=== PATIENT | male | born 1955 | race Caucasian/White ===

== ENCOUNTER → 2017-10-13 09:55 | Outpatient (CLI) | payer OTHER, MEDICAID, SELFPAY ==
--- NOTE | 2017-10-13 11:35 | DI.CT.S_ITS ---
PROCEDURE: CT ABDOMEN PELVIS WO CON INDICATIONS: identify extent of hernias abdominal wall TECHNIQUE: Noncontrast 5 mm thick sections acquired from the diaphragms to the symphysis. 5 mm coronal and sagittal reformats were then performed. For radiation dose reduction, the following was used: automated exposure control, adjustment of mA and/or kV according to patient size. COMPARISON: [facility], CT, CT CHEST WO CON, 05/20/2015, 8:04. FINDINGS: Image quality: Excellent. ABDOMEN: Lung bases: Lung bases are with very severe COPD, most pronounced over the upper lungs, where little surface area for aeration is present. Heart size is normal. There is a moderately large hiatal hernia behind the heart. Solid organs: Liver is normal in size. Gallbladder appears to be largely contracted but there is internal radiodensity suggestive of gallstones, without inflammation. Pancreas is normal in contours. Spleen is normal in size. No adrenal nodules. Kidneys are normal in size, without hydronephrosis or nephrolithiasis. Peritoneum and bowel: Unenhanced bowel loops demonstrate normal wall thickness and caliber. No free fluid or air. Nodes and vessels: No retroperitoneal or mesenteric adenopathy by size criteria. Aorta and inferior vena cava are normal in caliber. Miscellaneous: Body wall eventration lungs are asymmetric, greater on the left than the right, but there is only a single relatively small area of body wall defect allowing herniation of bowel into the subcutaneous fat. This is located at the axial level of the anterior superior iliac spine on the left, through a 3.7 cm body wall defect allows both omental/mesenteric fat and a short segment of small bowel containing oral contrast to extend into the subcutaneous fat (centered on series 2 image 54).. PELVIS: Genitourinary: Bladder wall thickness is normal. Miscellaneous: No inguinal hernias or adenopathy. Bones: No suspicious bony lesions. No vertebral body compression fractures. IMPRESSION: 1. Very severe COPD is noted, with marked hyperexpansion of the upper lungs bilaterally. 2. Body wall eventration's are present bilaterally but there is only a very small true body wall defect through which a short segment of small bowel containing oral contrast protrudes to a mild degree. This is located at the junction of the abdomen/pelvis at the right anterolateral body wall, through defect measuring 3.7 cm in maximal dimension. Dictated by: Thony Pizarro M.D. on 10/13/2017 at 13:33 Approved by: Thony Pizarro M.D. on 10/13/2017 at 13:38
== END ==
PROVIDERS: Family Provider Family Medicine; PCP Family Medicine; Visit Provider Specialist
DX: K43.9 Ventral hernia without obstruction or gangrene (principal); J44.9 Chronic obstructive pulmonary disease, unspecified
CPT/HCPCS: 74176

== ENCOUNTER 2017-11-02 08:03 | Emergency (ER) | payer OTHER, MEDICAID, SELFPAY ==
[2017-11-02 08:10] VITALS: BP 127/93; PULSE 100; RESP 15; TEMP 36.8; O2SAT 98; BMI 27.1
--- NOTE | 2017-11-02 08:24 | DI.RAD.S_ITS ---
PROCEDURE: XR CHEST 1V INDICATIONS: chest pain TECHNIQUE: One view of the chest was acquired. COMPARISON: [facility], CT, CT ABDOMEN PELVIS WO CON, 10/13/2017, 11:17. [facility], CT, CHEST W/O CONTRAST, 09/19/2014, 8:04. [facility], CT, CT CHEST WO CON, 05/20/2015, 8:04. FINDINGS: Surgical changes and devices: None. Lungs and pleura: Upper lungs are lucent consistent with severe bullous emphysema. There is mild hyperinflation. Bilateral lower lobe interstitial opacities. No focal consolidation. No pleural effusions or pneumothorax. Mediastinum: Mediastinal contours appear normal. Heart size is normal. There is a large hiatal hernia. Bones and chest wall: No suspicious bony lesions. Overlying soft tissues appear unremarkable. IMPRESSION: 1. Severe bullous emphysema. 2. Bilateral lower lobe interstitial opacities may be interstitial pneumonia superimposed on scars and atelectasis. 3. Large hiatal hernia. Dictated by: Pastor Andrade M.D. on 11/02/2017 at 8:27 Approved by: Pastor Andrade M.D. on 11/02/2017 at 8:31
[2017-11-02 08:40] LABS: Add Manual Diff / Slide Review NO; Basophils Percent Auto 0.4 % (0-2); Eosinophils Percent Auto 1.1 % (2-4); Hematocrit 40.2 % (41-53); Hemoglobin 13.1 g/dL (13.5-17.5); Lymphocytes Percent Auto 6.9 % (25-40); Mean Corpuscular HGB Conc 32.5 % (30-36); Mean Corpuscular Hemoglobin 26.3 PG (26-34); Mean Corpuscular Volume 80.9 fL (80-100); Monocytes Percent Auto 16.3 % (3-14); Neutrophils Absolute Auto 8800 /uL (3000-5900); Neutrophils Percent Auto 75.3 % (50-75); Platelet Count 290 X10^3/uL (150-400); Red Blood Cell Count 4.97 X10^6/uL (4.5-5.9); Red Cell Distribution Width 16.2 % (11.6-14.8); White Blood Cell Count 11.7 X10^3/uL (4.5-11.0)
[2017-11-02 08:42] LABS: INR 1.1 (0.9-1.3)
[2017-11-02 08:44] LABS: Alanine Aminotransferase 19 IU/L (21-72); Albumin 4.3 g/dL (3.5-5.0); Albumin Globulin Ratio 1.3 (1.0-2.8); Alkaline Phosphatase 50 U/L (38-126); Aspartate Aminotransferase 14 IU/L (17-59); BUN Creatinine Ratio 16.3 (6-22); Bilirubin Total 0.7 mg/dL (0.2-1.3); Blood Urea Nitrogen 13 mg/dL (9-20); Calcium 9.7 mg/dL (8.4-10.2); Carbon Dioxide 26 mmol/L (22-32); Chloride 104 mmol/L (98-107); Creatine Kinase 71 U/L (55-170); Estimated Glomerular Filt Rate > 60.0 mL/min (>60); Globulin 3.2 g/dL (1.7-4.1); Glucose 98 mg/dL (80-110); HEMOLYSIS < 15 (0-50); Lipase 27 U/L (23-300); PTT Partial Thromboplastin Tim 29 SECONDS (26.4-36.2); Sodium 140 mmol/L (137-145); Total Protein 7.5 g/dL (6.3-8.2)
--- NOTE | 2017-11-02 08:52 | ED_ITS ---
HPI - Chest Pain General Chief Complaint: Chest Pain Stated Complaint: chest pain Time Seen by Provider: 11/02/17 08:07 Source: patient Mode of arrival: ambulatory Limitations: no limitations History of Present Illness HPI narrative: Patient is a 62-year-old male with a known history of COPD here for evaluation of shortness of breath. Patient states that on Monday during the day he started to have shortness of breath and back pain. He states that it is similar to prior COPD issues that he has had but he was also concerned about his known cholelithiasis him with a not the symptoms he were having is related to that. He also states that he looked on Google regarding his symptoms and was also concerned about his heart. He states that his normal COPD treatments which include inhalers and a natural steroid has not helped him symptoms. He states that normally these treatments do help his symptoms. He states that his symptoms have been consistent since Monday. Denies chest pain. States that he does have pain in his back which she occasionally gets with COPD but states that he just cannot get comfortable no lower extremity swelling. Related Data Home Medications Medication Instructions Recorded Confirmed albuterol sulfate HFA 90 1 puff INHALATION DIRECTED 09/29/17 11/02/17 mcg/actuation aerosol inhaler fluticasone 100 mcg-vilanterol 25 1 inhalation INHALATION Q24H 09/29/17 11/02/17 mcg/dose powder for inhalation fluticasone 50 mcg/actuation nasal 1 spray NASAL .PRN gram 09/29/17 11/02/17 spray,suspension loratadine 10 mg tablet 10 mg PO DAILY 09/29/17 11/02/17 tiotropium bromide 1.25 2 puff INHALATION Q12H gram 09/29/17 11/02/17 mcg/actuation mist for inhalation Serrapeptase 1 dose PO PRN PRN 11/02/17 11/02/17 polyethylene glycol 3350 [Miralax] 1 dose PO PRN PRN 11/02/17 11/02/17 Allergies Allergy/AdvReac Type Severity Reaction Status Date / Time No Known Drug Allergies Allergy Unverified 09/29/17 13:35 Review of Systems Constitutional Denies fatigue and Denies fever(s) ENT Ears, Nose, Mouth, and Throat: Denies vertigo and Denies dizziness Cardiovascular Denies chest pain, Denies diaphoresis, Denies edema, Denies irregular heart rhythm, Denies leg edema, Denies palpitations and Reports dyspnea Respiratory Denies change in phlegm color, Denies chest congestion, Denies cough, Reports dyspnea and Denies wheezing Gastrointestinal Gastrointestinal: Denies diarrhea, Denies nausea and Denies vomiting Comments: has a known abdominal hernia from prior colon resection and colostomy takedown Genitourinary Denies dysuria Musculoskeletal Denies myalgias and Denies arthralgias Integumentary/Breasts Denies lesions and Denies rash Neurologic Denies confusion, Denies vertigo and Denies dizziness Psychiatric Denies confusion Endocrine Denies fatigue and Denies palpitations Hematologic/Lymphatic Denies easy bleeding and Denies easy bruising Allergic/Immunologic Denies wheezing [facility] Medical History COPD (chronic obstructive pulmonary disease) (Chronic) Ventral incisional hernia without gangrene (Chronic) Hernia (Resolved) Surgical History H/O resection of large bowel (Resolved) History of colostomy reversal (Resolved) History of colostomy reversal (Resolved) History of resection of large bowel (Resolved) Social History Smoking Status: Former smoker alcohol intake: never Exam Initial Vital Signs Initial Vital Signs: Vital Signs Temperature 98.3 F 11/02/17 08:10 Pulse Rate 100 H 11/02/17 08:10 Respiratory Rate 15 11/02/17 08:10 Blood Pressure 127/93 H 11/02/17 08:10 Pulse Oximetry 98 11/02/17 08:10 Const General: cooperative, healthy appearing, comfortable, well developed, well groomed and No acute distress Orientation: alert, awake and oriented x3 HENMT Head: normal to inspection and normocephalic Resp Effort & Inspection: normal respiratory effort Auscultation: clear to auscultation bilaterally Cardio Rate: regular rate Rhythm: regular rhythm Pulses: radial pulses present Skin Lesions: no lesions Rashes: no rashes Neuro General: alert, awake and oriented x3 Cognition: normal cognition Speech: speech normal Gait: normal gait Motor: muscle tone normal throughout Sensory Exam: no sensory deficits noted Extrem General: normal to inspection, capillary refill normal and no pedal edema Psych Appearance: well kempt Course Orders Ordered: ED Orders 11/02/17 08:20 B Type Natriuretic Peptide Stat Complete Blood Count AUTO DIFF Stat Comprehensive Metabolic Panel Stat Lipase Stat Partial Thromboplastin Time Stat Prothrombin Time INR Stat Troponin & CK Cardiac Panel Stat 11/02/17 08:24 XR chest 1V Stat EKG-12 Lead Stat 11/02/17 10:06 CT angio chest PE protocol Stat 11/02/17 11:32 Troponin I Stat Discontinued Medications Sodium Chloride (Normal Saline 0.9%) 1,000 mls @ 500 mls/hr IV BOLUS ONE Stop: 11/02/17 11:36 Last Infusion: 11/02/17 11:29 Dose: 0 mls/hr Admin: 11/02/17 09:42 Dose: 500 mls/hr Vital Signs - 8 hr 11/02/17 08:10 11/02/17 10:57 11/02/17 11:06 Temperature 98.3 F Pulse Rate 100 H 97 H 82 Respiratory Rate 15 14 19 Blood Pressure 127/93 H Blood Pressure [Right Arm] 141/92 H 127/89 H Pulse Oximetry 98 99 99 11/02/17 11:32 11/02/17 12:01 Temperature Pulse Rate 85 88 Respiratory Rate 18 22 Blood Pressure Blood Pressure [Right Arm] 135/86 H 126/76 H Pulse Oximetry 98 97 MDM - Chest Pain Lab Data Attestation: I reviewed the patient's lab results. Result diagrams: 11/02/17 08:20 11/02/17 08:20 Lab Results 11/02/17 11/02/17 11/02/17 Range/Units 08:20 08:20 08:20 WBC 11.7 H (4.5-11.0) X10^3/uL RBC 4.97 (4.5-5.9) X10^6/uL Hgb 13.1 L (13.5-17.5) g/dL Hct 40.2 L (41-53) % MCV 80.9 (80-100) fL MCH 26.3 (26-34) PG MCHC 32.5 (30-36) % RDW 16.2 H (11.6-14.8) % Plt Count 290 (150-400) X10^3/uL Neut % (Auto) 75.3 H (50-75) % Lymph % (Auto) 6.9 L (25-40) % Dickenson % (Auto) 16.3 H (3-14) % Eos % (Auto) 1.1 L (2-4) % Baso % (Auto) 0.4 (0-2) % Neut # (Auto) 8800 H (2076-7079) /uL PT 12.0 (10.1-12.7) SECONDS INR 1.1 (0.9-1.3) APTT 29 (26.4-36.2) SECONDS Sodium 140 (137-145) mmol/L Potassium 4.0 (3.4-5.1) mmol/L Chloride 104 (98-107) mmol/L Carbon Dioxide 26 (22-32) mmol/L BUN 13 (9-20) mg/dL Creatinine 0.80 (0.66-1.25) mg/dL Estimated GFR > 60.0 (>60) mL/min BUN/Creatinine Ratio 16.3 (6-22) Glucose 98 (80-110) mg/dL Calcium 9.7 (8.4-10.2) mg/dL Total Bilirubin 0.7 (0.2-1.3) mg/dL AST 14 L (17-59) IU/L ALT 19 L (21-72) IU/L Alkaline Phosphatase 50 (38-126) U/L Total Creatine Kinase 71 (55-170) U/L Troponin I < 0.012 (0.01-0.034) ng/mL B-Natriuretic Peptide (<100) Total Protein 7.5 (6.3-8.2) g/dL Albumin 4.3 (3.5-5.0) g/dL Globulin 3.2 (1.7-4.1) g/dL Albumin/Globulin Ratio 1.3 (1.0-2.8) Lipase 27 (23-300) U/L 11/02/17 11/02/17 Range/Units 08:20 11:32 WBC (4.5-11.0) X10^3/uL RBC (4.5-5.9) X10^6/uL Hgb (13.5-17.5) g/dL Hct (41-53) % MCV (80-100) fL MCH (26-34) PG MCHC (30-36) % RDW (11.6-14.8) % Plt Count (150-400) X10^3/uL Neut % (Auto) (50-75) % Lymph % (Auto) (25-40) % Dickenson % (Auto) (3-14) % Eos % (Auto) (2-4) % Baso % (Auto) (0-2) % Neut # (Auto) (4659-5460) /uL PT (10.1-12.7) SECONDS INR (0.9-1.3) APTT (26.4-36.2) SECONDS Sodium (137-145) mmol/L Potassium (3.4-5.1) mmol/L Chloride (98-107) mmol/L Carbon Dioxide (22-32) mmol/L BUN (9-20) mg/dL Creatinine (0.66-1.25) mg/dL Estimated GFR (>60) mL/min BUN/Creatinine Ratio (6-22) Glucose (80-110) mg/dL Calcium (8.4-10.2) mg/dL Total Bilirubin (0.2-1.3) mg/dL AST (17-59) IU/L ALT (21-72) IU/L Alkaline Phosphatase (38-126) U/L Total Creatine Kinase (55-170) U/L Troponin I < 0.012 (0.01-0.034) ng/mL B-Natriuretic Peptide 77.4 (<100) Total Protein (6.3-8.2) g/dL Albumin (3.5-5.0) g/dL Globulin (1.7-4.1) g/dL Albumin/Globulin Ratio (1.0-2.8) Lipase (23-300) U/L Imaging Data Chest x-ray: Radiologist's impression: severe bullous emphysema bilateral lower lobe interstitial opacities may be interstitial pneumonia superimposed on scars or and atelectasis large hiatal hernia CT scan - chest: Radiologist's impression: PROCEDURE: CT ANGIO CHEST PE PROTOCOL INDICATIONS: Chest pain, shortness of breath TECHNIQUE: After the administration of intravenous contrast, 2 mm thick sections acquired from the pulmonary apices to the posterior costophrenic angles. 3-dimensional maximum intensity projection (MIP) coronal and sagittal reformats were then acquired through the thorax. For radiation dose reduction, the following was used: automated exposure control, adjustment of mA and/or kV according to patient size. COMPARISON: [facility], CT, CHEST W/O CONTRAST, 09/19/2014, 8:04. [facility], CT, CT CHEST WO CON, 05/20/2015, 8:04. [facility], CT, CT ABDOMEN PELVIS WO CON, 10/13/2017, 11:17. FINDINGS: Image quality: Excellent. Pulmonary arteries: Pulmonary arteries are normal in size, and demonstrate no intraluminal filling defects to suggest central pulmonary embolism. Lungs and pleura: Severe bullous emphysema is again noted. 4 mm left upper lobe and 5 mm left lower lobe nodules are unchanged from 2015. Lungs are clear. No pleural effusions or pneumothorax. Central and peripheral airways are patent. Mediastinum: Heart size is normal, without pericardial effusion. Right superior mediastinal soft tissue mass is unchanged measuring 2.0 x 3.9 cm. No hilar adenopathy. Thoracic aorta is normal in caliber and enhancement. Large hiatal hernia again noted. Bones and chest wall: No suspicious bony lesions. Ribs and thoracic spine appear intact throughout. Thyroid gland appears normal. No axillary or supraclavicular adenopathy. Abdomen: Visualized upper abdominal solid organs appear normal in the early arterial phase of enhancement. There appears to be a large gallstone. A 1.6 cm hepatic cyst is present near the gallbladder fossa. IMPRESSION: 1. No evidence of pulmonary embolic disease. 2. Severe bullous emphysema. Stable left upper and lower lobe pulmonary nodules. 3. Stable superior mediastinal mass, differential including thymoma, teratoma, goiter and adenopathy. 4. Large hiatal hernia. 5. Central hepatic cyst. 6. Probable cholelithiasis. Dictated by: Martín Hernandez M.D. on 11/02/2017 at 10:17 ECG Data Attestation: I personally reviewed and interpreted this ECG as follows: Prior ECG tracings: not available for review Interpretation: sinus rhythm ventricular rate at 80 sinus arrhythmia normal axis Normal QRS Normal QTC no ST T wave changes MDM Narrative Medical decision making narrative: patient's CT of his chest was negative for blood clots. EKG is nonischemic. Has had symptoms consistently for greater than 48 hr and also has had 2- troponins. I have low suspicion that his symptoms today are cardiac related. He did have a resolution of his back pain while he was here in the emergency department. He now states that his abdominal pain is consistent with his hiatal hernia. Will hold on further workup for now. He was given return precautions. He does have his COPD medications at home is going to stop by the pharmacy to get those filled. his family was at bedside. He expressed understanding and agreement with plan. Discharge Plan Departure Patient Disposition: Home, Self-Care Clinical Impression: Back pain, COPD (chronic obstructive pulmonary disease) Instructions: Chronic Obstructive Pulmonary Disease Activity Restrictions/Additional Instructions: continue all of your medications as directed. Call your primary care doctor for a follow-up. Return to the emergency department for any new or worsening symptoms Prescriptions: No Action tiotropium bromide [Spiriva Respimat] 1.25 mcg/actuation mist 2 puff INHALATION Q12H RF: 0 fluticasone 50 mcg/actuation spray,suspension 1 spray NASAL .PRN RF: 0 fluticasone-vilanterol [Breo Ellipta] 100-25 mcg/dose blister with device 1 inhalation INHALATION Q24H RF: 0 loratadine 10 mg tablet 10 mg PO DAILY RF: 0 albuterol sulfate [ProAir HFA] 90 mcg/actuation Hfa Aerosol Inhaler 1 puff INHALATION DIRECTED RF: 0 polyethylene glycol 3350 [Miralax] 17 gram Powder In Packet 1 dose PO PRN PRN (Reason: Constipation) RF: 0 Serrapeptase 1 dose PO PRN PRN (Reason: unknown) RF: 0
[2017-11-02 09:05] LABS: Troponin I < 0.012 ng/mL (0.01-0.034)
[2017-11-02 09:35] LABS: B Type Natriuretic Peptide 77.4 (<100)
[2017-11-02] MEDS: SODIUM CHLORIDE 0.9% 1,000 ML 500 ML IV (09:42)
--- NOTE | 2017-11-02 10:06 | DI.CT.S_ITS ---
PROCEDURE: CT ANGIO CHEST PE PROTOCOL INDICATIONS: Chest pain, shortness of breath TECHNIQUE: After the administration of intravenous contrast, 2 mm thick sections acquired from the pulmonary apices to the posterior costophrenic angles. 3-dimensional maximum intensity projection (MIP) coronal and sagittal reformats were then acquired through the thorax. For radiation dose reduction, the following was used: automated exposure control, adjustment of mA and/or kV according to patient size. COMPARISON: [facility], CT, CHEST W/O CONTRAST, 09/19/2014, 8:04. [facility], CT, CT CHEST WO CON, 05/20/2015, 8:04. [facility], CT, CT ABDOMEN PELVIS WO CON, 10/13/2017, 11:17. FINDINGS: Image quality: Excellent. Pulmonary arteries: Pulmonary arteries are normal in size, and demonstrate no intraluminal filling defects to suggest central pulmonary embolism. Lungs and pleura: Severe bullous emphysema is again noted. 4 mm left upper lobe and 5 mm left lower lobe nodules are unchanged from 2015. Lungs are clear. No pleural effusions or pneumothorax. Central and peripheral airways are patent. Mediastinum: Heart size is normal, without pericardial effusion. Right superior mediastinal soft tissue mass is unchanged measuring 2.0 x 3.9 cm. No hilar adenopathy. Thoracic aorta is normal in caliber and enhancement. Large hiatal hernia again noted. Bones and chest wall: No suspicious bony lesions. Ribs and thoracic spine appear intact throughout. Thyroid gland appears normal. No axillary or supraclavicular adenopathy. Abdomen: Visualized upper abdominal solid organs appear normal in the early arterial phase of enhancement. There appears to be a large gallstone. A 1.6 cm hepatic cyst is present near the gallbladder fossa. IMPRESSION: 1. No evidence of pulmonary embolic disease. 2. Severe bullous emphysema. Stable left upper and lower lobe pulmonary nodules. 3. Stable superior mediastinal mass, differential including thymoma, teratoma, goiter and adenopathy. 4. Large hiatal hernia. 5. Central hepatic cyst. 6. Probable cholelithiasis. Dictated by: Martín Hernandez M.D. on 11/02/2017 at 10:17 Approved by: Martín Hernandez M.D. on 11/02/2017 at 11:01
[2017-11-02 10:57] VITALS: BP 141/92; PULSE 97; RESP 14; O2SAT 99
[2017-11-02 11:06] VITALS: BP 127/89; PULSE 82; RESP 19; O2SAT 99
[2017-11-02 11:32] VITALS: BP 135/86; PULSE 85; RESP 18; O2SAT 98
[2017-11-02 12:01] VITALS: BP 126/76; PULSE 88; RESP 22; O2SAT 97
[2017-11-02 12:05] LABS: Troponin I < 0.012 ng/mL (0.01-0.034)
[2017-11-02 12:22] VITALS: BP 126/76; PULSE 90; RESP 20; O2SAT 97
== END 2017-11-02 12:23 | disposition home or self-care (01) ==
PROVIDERS: Emergency Provider Emergency Medicine; Family Provider Family Medicine; PCP Family Medicine
DX: M54.9 Dorsalgia, unspecified (principal); J44.9 Chronic obstructive pulmonary disease, unspecified
CPT/HCPCS: 36415; 36591; 71045; 71275; 80053; 82550; 82553; 83690; 83880; 84484; 85025; 85610; 85730; 93005; 93041; 96360; 96361; 99284; 99285; Q9967

== ENCOUNTER 2019-05-13 08:45 | Inpatient (IN) | payer OTHER, MEDICAID, SELFPAY ==
[2019-05-13] VITALS (12 sets, daily range): BP systolic 109–141; BP diastolic 63–92; PULSE 82–116; RESP 16–31; TEMP 36.7–37.1; O2SAT 91–97; BMI 28.3
--- NOTE | 2019-05-13 09:18 | DI.RAD.S_ITS ---
PROCEDURE: XR CHEST 1V INDICATIONS: short of breath TECHNIQUE: One view of the chest was acquired. COMPARISON: , CT, CT ANGIO CHEST PE PROTOCOL, 11/02/2017, 9:55. [facility], CT, CT CHEST WO CON, 05/20/2015, 8:04. , CR, XR CHEST 1V, 11/02/2017, 8:58. FINDINGS: Surgical changes and devices: None. Lungs and pleura: Severe bullous emphysema is again seen. Consolidation can be seen at the right lung base, which is significantly changed compared to the prior examination. Mediastinum: Mediastinal contours appear normal. Heart size is normal. Bones and chest wall: No suspicious bony lesions. Age-appropriate bony degenerative changes are seen. Overlying soft tissues appear unremarkable. IMPRESSION: Stable severe bullous emphysema. If there is strong concern for a developing superimposed bacterial process, please consider a short term followup chest series, as clinically directed. Dictated by: Delvis Alba M.D. on 05/13/2019 at 9:40 Approved by: Delvis Alba M.D. on 05/13/2019 at 9:45
--- NOTE | 2019-05-13 09:36 | ED_ITS ---
HPI - SOB/Dyspnea General Chief Complaint: Shortness of Breath/Dyspnea Stated Complaint: DIFFICULTY BREATHING WITH EXERTION,COPD Time Seen by Provider: 05/13/19 09:17 Source: patient Mode of arrival: Ambulatory History of Present Illness HPI Narrative: Patient is a 63-year-old male history of COPD presenting with increasing shortness of breath. He says that he has only had 3 days for the entire year of 2019 where he has felt well at which time he was on antibiotics and prednisone. He says yesterday he used 10-20 nebulizer treatments without any improvement. He says he now has a headache he he denies any fever sweats or chills but does have productive sputum. He says he has increased shortness of breath with exertion he does he can't more than 10-15 feet. Although right now he is given the history without any difficulty in breathing and speaks in full sentences laughing and joking. Complaint: shortness of breath Onset (ago): week(s) Context: recent illness Severity: moderate Relieving factors: nothing Exacerbating factors: exertion Known history of: COPD Related Data Home Medications Medication Instructions Recorded Confirmed Serrapeptase 1 dose PO PRN PRN 11/02/17 05/13/19 polyethylene glycol 3350 [Miralax] 1 dose PO PRN PRN 11/02/17 05/13/19 sennosides [senna] 8.6 mg PO BID PRN 05/13/19 05/13/19 tiotropium bromide [Spiriva 2 puff INHALATION Q12H 05/13/19 05/13/19 Respimat] Previous Rx's Medication Instructions Recorded albuterol sulfate 90 mcg/actuation 1 puff INHALATION Q4H PRN #18 gram 04/30/19 aerosol inhaler Allergies Allergy/AdvReac Type Severity Reaction Status Date / Time No Known Drug Allergies Allergy Unverified 01/30/19 12:59 Review of Systems Review of Systems Narrative: GENERAL: Denies chills, fatigue, malaise, fever, sweats, travel HEENT: Denies sinus pain, ear pain, sore throat, difficulty swallowing, neck pain RESPIRATORY: See HPI CARDIOVASCULAR: Denies chest pain, palpitations, orthopnea, edema GASTROINTESTINAL: Denies nausea, vomiting, abdominal pain, diarrhea, co nstipation, melena. : Denies dysuria, frequency, incontinence, hematuria, urinary retention, flank pain. MUSCULOSKELETAL: Denies weakness, joint pain, or bony pain SKIN: No rash, no erythema, no pruritus NEUROLOGIC: Denies weakness, dizziness, headache, numbness, change in speech, confusion PSYCHIATRIC: No concerning psychosocial issues. 12 point review of systems is negative except for those stated above and HPI Patient History Medical History COPD (chronic obstructive pulmonary disease) (Chronic) Hearing loss (Chronic) Hernia (Resolved) Recurrent sinusitis (Chronic) Restless leg syndrome (Chronic) Tinnitus (Chronic) Ventral incisional hernia without gangrene (Chronic) Surgical History Anesthesia (Resolved) H/O resection of large bowel (Resolved) History of colostomy reversal (Resolved) History of colostomy reversal (Resolved) History of resection of large bowel (Resolved) Family History Father History of heart disease Mother Cancer Sister Cancer Social History household members: none Smoking Status: Former smoker alcohol intake: never Smoking Status: Former smoker Substance Use Type: former substance user Exam Initial Vital Signs Initial Vital Signs: Vital Signs Temperature 98.2 F 05/13/19 08:50 Pulse Rate 98 H 05/13/19 08:50 Respiratory Rate 22 05/13/19 08:50 Blood Pressure 136/92 H 05/13/19 08:50 Pulse Oximetry 95 05/13/19 08:50 GENERAL: Alert middle-aged male no acute distress HEENT: Head atraumatic,EOMI, pupils reactive CARDIOVASCULAR: Regular rate and rhythm without murmurs, rubs or gallops. RESPIRATORY: Bilateral wheezing no respiratory distress no intercostal retra ctions speaks in full sentences ABDOMEN: Soft, nontender. Normoactive bowel sounds all 4 quadrants. No guarding or rebound. EXTREMITIES: Normal range of motion, no clubbing or edema. Neurovascularly intact NEUROLOGICAL: Alert and oriented x4.Normal gait and speech. Cranial nerves II through XII grossly intact. SKIN: Warm, dry, no laceration, no petechiae, no rashes or lesions. Course Orders Ordered: ED Orders 05/13/19 09:17 Consult to Respiratory Therapy Evaluate & Treat 05/13/19 09:18 XR chest 1V Stat 05/13/19 09:36 Complete Blood Count AUTO DIFF Stat Comprehensive Metabolic Panel Stat D Dimer Stat Magnesium Stat Partial Thromboplastin Time Stat Prothrombin Time INR Stat Troponin & CK Cardiac Panel Stat 05/13/19 09:39 NT-proBNP (BNP-Adult 18+) Stat 05/13/19 11:21 CT angio chest PE protocol Stat 05/13/19 12:10 Respiratory Panel (Film Array) Stat Sodium Chloride (Normal Saline 0.9% Flush) 10 ml IV PRN PRN PRN Reason: Flush Sodium Chloride (Normal Saline 0.9% Flush) 10 ml IV BID LETTY Discontinued Medications Albuterol/Ipratropium (Duoneb) 3 ml INH NOW ONE Stop: 05/13/19 11:42 Last Admin: 05/13/19 11:41 Dose: 3 ml Documented by: EFREN Ceftriaxone Sodium/Dextrose (Rocephin) 1 gm in 50 mls @ 100 mls/hr IV NOW ONE Stop: 05/13/19 12:56 Azithromycin 500 mg/ Dextrose 250 mls @ 250 mls/hr IV NOW ONE Stop: 05/13/19 12:28 Last Infusion: 05/13/19 13:15 Dose: 0 mls/hr Documented by: Admin: 05/13/19 12:43 Dose: 250 mls/hr Documented by: ANNA Methylprednisolone (Solu-Medrol 125 Mg Vial) 125 mg IV NOW ONE Stop: 05/13/19 09:18 Last Admin: 05/13/19 09:42 Dose: 125 mg Documented by: GREGORIA Vital Signs Vital signs: Vital Signs - 8 hr 05/13/19 08:50 05/13/19 09:30 05/13/19 10:30 Temperature 98.2 F Pulse Rate 98 H 84 89 Respiratory Rate 22 31 H 28 H Blood Pressure 136/92 H Blood Pressure [Left Arm] 129/88 133/85 Pulse Oximetry 95 96 97 05/13/19 11:35 05/13/19 12:00 Temperature Pulse Rate 100 H 94 H Respiratory Rate 28 H 21 Blood Pressure Blood Pressure [Left Arm] 135/87 141/85 H Pulse Oximetry 93 96 MDM - SOB/Dyspnea Lab Data Attestation: I reviewed the patient's lab results. Result diagrams: 05/13/19 09:36 05/13/19 09:36 Labs: Lab Results 05/13/19 05/13/19 05/13/19 Range/Units 09:36 09:36 09:36 WBC 6.3 (4.5-11.0) X10^3/uL RBC 4.93 (4.5-5.9) X10^6/uL Hgb 15.1 (13.5-17.5) g/dL Hct 44.9 (41-53) % MCV 91.0 (80-100) fL MCH 30.6 (26-34) PG MCHC 33.6 (30-36) % RDW 13.1 (11.6-14.8) % Plt Count 231 (150-400) X10^3/uL Neut % (Auto) 71.1 (50-75) % Lymph % (Auto) 8.7 L (25-40) % [place] % (Auto) 11.6 (3-14) % Eos % (Auto) 8.1 H (2-4) % Baso % (Auto) 0.5 (0-2) % Neut # (Auto) 4400 (0764-1256) /uL Lymph # (Auto) 500 L (1960-4683) /uL [place] # (Auto) 700 (0-900) /uL Eos # (Auto) 500 H (0-450) /uL Baso # (Auto) 0 (0-100) /uL PT 12.1 (10.1-12.7) SECONDS INR 1.1 (0.9-1.3) APTT 33 D (26.4-36.2) SECONDS D-Dimer (<230) ng/mL Sodium 141 (137-145) mmol/L Potassium 4.3 (3.4-5.1) mmol/L Chloride 104 (98-107) mmol/L Carbon Dioxide 32 (22-32) mmol/L BUN 14 (9-20) mg/dL Creatinine 0.70 (0.66-1.25) mg/dL Estimated GFR > 60.0 (>60) mL/min BUN/Creatinine Ratio 20.0 (6-22) Glucose 106 (80-110) mg/dL Calcium 9.6 (8.4-10.2) mg/dL Magnesium 2.2 (1.6-2.3) mg/dL Total Bilirubin 0.5 (0.2-1.3) mg/dL AST 19 (17-59) IU/L ALT 15 (<50) IU/L Alkaline Phosphatase 58 (38-126) U/L Total Creatine Kinase 90 (55-170) U/L CK-MB (CK-2) TNP CK-MB (CK-2) Rel Index TNP Troponin I < 0.012 (0.01-0.034) ng/mL NT-Pro-B Natriuret Pep (<125) pg/mL Total Protein 7.7 (6.3-8.2) g/dL Albumin 4.3 (3.5-5.0) g/dL Globulin 3.4 (1.7-4.1) g/dL Albumin/Globulin Ratio 1.3 (1.0-2.8) 05/13/19 05/13/19 Range/Units 09:36 09:39 WBC (4.5-11.0) X10^3/uL RBC (4.5-5.9) X10^6/uL Hgb (13.5-17.5) g/dL Hct (41-53) % MCV (80-100) fL MCH (26-34) PG MCHC (30-36) % RDW (11.6-14.8) % Plt Count (150-400) X10^3/uL Neut % (Auto) (50-75) % Lymph % (Auto) (25-40) % [place] % (Auto) (3-14) % Eos % (Auto) (2-4) % Baso % (Auto) (0-2) % Neut # (Auto) (7758-2808) /uL Lymph # (Auto) (1511-1200) /uL [place] # (Auto) (0-900) /uL Eos # (Auto) (0-450) /uL Baso # (Auto) (0-100) /uL PT (10.1-12.7) SECONDS INR (0.9-1.3) APTT (26.4-36.2) SECONDS D-Dimer 811 H (<230) ng/mL Sodium (137-145) mmol/L Potassium (3.4-5.1) mmol/L Chloride (98-107) mmol/L Carbon Dioxide (22-32) mmol/L BUN (9-20) mg/dL Creatinine (0.66-1.25) mg/dL Estimated GFR (>60) mL/min BUN/Creatinine Ratio (6-22) Glucose (80-110) mg/dL Calcium (8.4-10.2) mg/dL Magnesium (1.6-2.3) mg/dL Total Bilirubin (0.2-1.3) mg/dL AST (17-59) IU/L ALT (<50) IU/L Alkaline Phosphatase (38-126) U/L Total Creatine Kinase (55-170) U/L CK-MB (CK-2) CK-MB (CK-2) Rel Index Troponin I (0.01-0.034) ng/mL NT-Pro-B Natriuret Pep 50 (<125) pg/mL Total Protein (6.3-8.2) g/dL Albumin (3.5-5.0) g/dL Globulin (1.7-4.1) g/dL Albumin/Globulin Ratio (1.0-2.8) Imaging Data Chest x-ray: Radiologist's Impression: PROCEDURE: XR CHEST 1V INDICATIONS: short of breath TECHNIQUE: One view of the chest was acquired. COMPARISON: [facility], CT, CT ANGIO CHEST PE PROTOCOL, 11/02/2017, 9:55. [facility], CT, CT CHEST WO CON, 05/20/2015, 8:04. [facility], CR, XR CHEST 1V, 11/02/2017, 8:58. FINDINGS: Surgical changes and devices: None. Lungs and pleura: Severe bullous emphysema is again seen. Consolidation can be seen at the right lung base, which is significantly changed compared to the prior examination. Mediastinum: Mediastinal contours appear normal. Heart size is normal. Bones and chest wall: No suspicious bony lesions. Age-appropriate bony degenerative changes are seen. Overlying soft tissues appear unremarkable. IMPRESSION: Stable severe bullous emphysema. If there is strong concern for a developing superimposed bacterial process, please consider a short term followup chest series, as clinically directed. Dictated by: Delvis Alba M.D. on 05/13/2019 at 9:40 CT scan - chest: Radiologist's Impression: PROCEDURE: CT ANGIO CHEST PE PROTOCOL INDICATIONS: sob with hypoxia TECHNIQUE: After the administration of intravenous contrast, 2 mm thick sections acquired from the pulmonary apices to the posterior costophrenic angles. 3-dimensional maximum intensity projection (MIP) coronal and sagittal reformats were then acquired through the thorax. For radiation dose reduction, the following was used: automated exposure control, adjustment of mA and/or kV according to patient size. COMPARISON: [facility], CT, CHEST W/O CONTRAST, 09/19/2014, 8:04. [facility], CT, CT ANGIO CHEST PE PROTOCOL, 11/02/2017, 9:55. FINDINGS: Image quality: Excellent. Pulmonary arteries: Pulmonary arteries are normal in size, and demonstrate no intraluminal filling defects to suggest central pulmonary embolism. Lungs and pleura: Prominent emphysematous changes are present with large bulla within the upper lobes bilaterally. There has been interval development of consolidative opacities within the right lower lobe. Mediastinum: Heart size is normal, without pericardial effusion. 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 Although there has been no significant change compared to 11/02/17, they have increased in size since initial visualization in 2014. It is in near direct approximation to the inferior right thyroid lobe. Thoracic aorta is normal in caliber and enhancement. Esophagus is normal in caliber, with prominent hiatal hernia. Bones and chest wall: No suspicious bony lesions. Ribs and thoracic spine appear intact throughout. Thyroid gland demonstrates low-attenuation foci within the inferior right lobe, unchanged. No axillary or supraclavicular adenopathy. Abdomen: Right adrenal nodule is noted, unchanged. Otherwise, visualized upper abdominal solid organs appear normal in the early arterial phase of enhancement. IMPRESSION: 1. No pulmonary embolism. 2. Prominent emphysematous and bullous changes as above. Since opacity are noted within the right base since 2018. While these could re present foci of airspace disease such as pneumonia, other etiologies such as atelectasis, scarring or potentially mass lesion of other etiology cannot be excluded. Recommend interval followup with appropriate therapy if felt to be suggestive of infection. Short interval imaging followup with CT in 3 months or PET scan may be obtained as clinically indicated for further evaluation. Dictated by: Nancy Montero M.D. on 05/13/2019 at 11:49 Approved by: Nancy Montero M.D. on 05/13/2019 at 11:58 ECG Data Attestation: I personally reviewed and interpreted this ECG as follows: Prior ECG tracings: not available for review Interpretation: Normal sinus rhythm rate 89 p.r. interval 163 QRS 80 QTC [address] elevation depression or T-wave inversion MDM Narrative Medical decision making narrative: Patient at rest is speaking with full sentences no respiratory distress oxygen heart rate are within normal limits. Patient refused initially any further albuterol he says that he took plenty at home and now has a headache. Upon ambulation trial he got extremely dizzy lightheaded obviously dyspneic and oxygen dropped to 88%. The decision for CT to rule out PE. The PE study is negative. Based on patient's clinical symptoms of severe shortness of breath with exertion he is admitted to ob servation for COPD exacerbation. Dr. Britton updated patient's symptoms test results and agrees with observation Discharge Plan Departure Patient Disposition: Admitted as Observation Clinical Impression: COPD exacerbation Discharge Date/Time: 05/13/19 13:15 Admit Date/Time: 05/13/19 12:45 Admit Provider: Eder Britton
[2019-05-13] MEDS: methylPREDNISolone 125 MG/2 ML VIAL IV (09:42)
[2019-05-13 09:43] LABS: Add Manual Diff / Slide Review NO; Basophils Absolute Auto 0 /uL (0-100); Basophils Percent Auto 0.5 % (0-2); Eosinophils Absolute Auto 500 /uL (0-450); Eosinophils Percent Auto 8.1 % (2-4); Hematocrit 44.9 % (41-53); Hemoglobin 15.1 g/dL (13.5-17.5); Lymphocytes Absolute Auto 500 /uL (1100-4500); Lymphocytes Percent Auto 8.7 % (25-40); Mean Corpuscular HGB Conc 33.6 % (30-36); Mean Corpuscular Hemoglobin 30.6 PG (26-34); Monocytes Absolute Auto 700 /uL (0-900); Monocytes Percent Auto 11.6 % (3-14); Neutrophils Absolute Auto 4400 /uL (1500-7000); Neutrophils Percent Auto 71.1 % (50-75); Platelet Count 231 X10^3/uL (150-400); Red Blood Cell Count 4.93 X10^6/uL (4.5-5.9); Red Cell Distribution Width 13.1 % (11.6-14.8); White Blood Cell Count 6.3 X10^3/uL (4.5-11.0)
[2019-05-13 09:53] LABS: Alanine Aminotransferase 15 IU/L (<50); Albumin 4.3 g/dL (3.5-5.0); Albumin Globulin Ratio 1.3 (1.0-2.8); Alkaline Phosphatase 58 U/L (38-126); Aspartate Aminotransferase 19 IU/L (17-59); Bilirubin Total 0.5 mg/dL (0.2-1.3); Blood Urea Nitrogen 14 mg/dL (9-20); Calcium 9.6 mg/dL (8.4-10.2); Carbon Dioxide 32 mmol/L (22-32); Chloride 104 mmol/L (98-107); Creatine Kinase 90 U/L (55-170); Estimated Glomerular Filt Rate > 60.0 mL/min (>60); Globulin 3.4 g/dL (1.7-4.1); Glucose 106 mg/dL (80-110); HEMOLYSIS < 15 (0-50); INR 1.1 (0.9-1.3); Magnesium 2.2 mg/dL (1.6-2.3); Potassium 4.3 mmol/L (3.4-5.1); Prothrombin Time 12.1 SECONDS (10.1-12.7); Sodium 141 mmol/L (137-145); Total Protein 7.7 g/dL (6.3-8.2)
[2019-05-13 09:55] LABS: PTT Partial Thromboplastin Tim 33 SECONDS (26.4-36.2)
[2019-05-13 10:03] LABS: Troponin I < 0.012 ng/mL (0.01-0.034)
[2019-05-13 10:10] LABS: NT-proBNP (BNP-Adult 18+) 50 pg/mL (<125)
--- NOTE | 2019-05-13 11:19 | PC.NURSE ---
Pt ambulated while on pulse oximetry. Pt completed on lap around ED. O2 sat while ambulating was 94% and HR 109. Upon returning to room pt had significant increased in WOB, pt was unable to speak more than one word at a time, respiratory rate was 40 and O2 dropped to 88%. Prior to ambulation pts RR was 27. Dr. Richter aware and pursing admission at this time.
--- NOTE | 2019-05-13 11:21 | DI.CT.S_ITS ---
PROCEDURE: CT ANGIO CHEST PE PROTOCOL INDICATIONS: sob with hypoxia TECHNIQUE: After the administration of intravenous contrast, 2 mm thick sections acquired from the pulmonary apices to the posterior costophrenic angles. 3-dimensional maximum intensity projection (MIP) coronal and sagittal reformats were then acquired through the thorax. For radiation dose reduction, the following was used: automated exposure control, adjustment of mA and/or kV according to patient size. COMPARISON: [facility], CT, CHEST W/O CONTRAST, 09/19/2014, 8:04. [facility], CT, CT ANGIO CHEST PE PROTOCOL, 11/02/2017, 9:55. FINDINGS: Image quality: Excellent. Pulmonary arteries: Pulmonary arteries are normal in size, and demonstrate no intraluminal filling defects to suggest central pulmonary embolism. Lungs and pleura: Prominent emphysematous changes are present with large bulla within the upper lobes bilaterally. There has been interval development of consolidative opacities within the right lower lobe. Mediastinum: Heart size is normal, without pericardial effusion. 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 Although there has been no significant change compared to 11/02/17, they have increased in size since initial visualization in 2014. It is in near direct approximation to the inferior right thyroid lobe. Thoracic aorta is normal in caliber and enhancement. Esophagus is normal in caliber, with prominent hiatal hernia. Bones and chest wall: No suspicious bony lesions. Ribs and thoracic spine appear intact throughout. Thyroid gland demonstrates low-attenuation foci within the inferior right lobe, unchanged. No axillary or supraclavicular adenopathy. Abdomen: Right adrenal nodule is noted, unchanged. Otherwise, visualized upper abdominal solid organs appear normal in the early arterial phase of enhancement. IMPRESSION: 1. No pulmonary embolism. 2. Prominent emphysematous and bullous changes as above. Since opacity are noted within the right base since 2018. While these could represent foci of airspace disease such as pneumonia, other etiologies such as atelectasis, scarring or potentially mass lesion of other etiology cannot be excluded. Recommend interval followup with appropriate therapy if felt to be suggestive of infection. Short interval imaging followup with CT in 3 months or PET scan may be obtained as clinically indicated for further evaluation. Dictated by: Nancy Montero M.D. on 05/13/2019 at 11:49 Approved by: Nancy Montero M.D. on 05/13/2019 at 11:58
[2019-05-13 11:27] LABS: D Dimer 811 ng/mL (<230)
[2019-05-13] MEDS: ALBUTEROL/IPRATROPIUM 3 ML AMPUL INH ×2 (11:41→20:49)
[2019-05-13] MEDS: AZITHROMYCIN 500 MG in DEXTROSE 5% IN WATER 250 ML IV (12:43)
--- NOTE | 2019-05-13 14:05 | PC.NURSE ---
Admit: Arrived to room 225 at 1330. SBA to transfer from stretcher to bed. Alert and oriented X3. No Hx of falls, moderate fall risk per assessment. SOB with exertion, reports that his breathing is definitely feeling better than it did when I came in to the ED. Lungs with scattered expiratory wheezes throughout. SpO2 on RA at rest 94-95%. HRR. Skin WNL. IV Axithromycin finishing up, IV site in R AC WNL. This publicity writer made Dr Britton aware that patient is on the floor in room 225, waiting on him now to make his rounds. Oriented to room and call light, instructed to call for assist OOB. Belongings and light within reach, bed alarm active. Daughter at bedside and attentive.
[2019-05-13 14:12] LABS: Adenovirus Not Detected (Not Detect); Bordetella pertussis Not Detected (Not Detect); Chlamydophila pneumoniae Not Detected (Not Detect); Coronavirus 229E Not Detected (Not Detect); Coronavirus HKU1 Not Detected (Not Detect); Coronavirus NL 63 Not Detected (Not Detect); Coronavirus OC43 Not Detected (Not Detect); Human Metapneumovirus Not Detected (Not Detect); Human Rhinovirus/Enterovirus Not Detected (Not Detect); Influenza A Not Detected (Not Detect); Influenza B Not Detected (Not Detect); Parainfluenza Virus 1 Not Detected (Not Detect); Parainfluenza Virus 2 Not Detected (Not Detect); Parainfluenza Virus 3 Not Detected (Not Detect); Parainfluenza Virus 4 Not Detected (Not Detect); Respiratory Syncytial Virus Not Detected (Not Detect)
[2019-05-13 14:13] LABS: Mycoplasma pneumoniae Not Detected (Not Detect)
[2019-05-13] MEDS: CEFTRIAXONE 1 GM/50 ML FROZ.PIGGY IV (14:22)
[2019-05-13] MEDS: SODIUM CHLORIDE 0.9% FLUSH 10 ML IV ×2 (14:23→20:21)
--- NOTE | 2019-05-13 15:19 | PM.HP.1 ---
History of Present Illness History of Present Illness Date Patient Seen: 05/13/19 Time Patient Seen: 16:07 Chief complaint: DIFFICULTY BREATHING WITH EXERTION,COPD Narrative: Renan Pollard is a 63 year old male with PMH of severe COPD on 2L home O2 who presented to the emergency room with shortness of breath. Patient states that he has been having worsening short of breath really since the holidays. He last saw his motor vehicle technician about a month ago to give him a 1 week course of steroids and antibiotics. He was feeling back to almost normal, however 3 days after he completed his course he began to be short of breath again. Patient currently has been treating his shortness of breath with home nebulizers, and reports that over the 1st month of this year he has used more nebulizers then all of last year combined. He further reports worsened dyspnea on exertion, limited to needing a nebulizer treatment after walking 10 ft. Before he was able to walk about 15 ft, and then would get short of breath, but this would always improved without nebulizer treatments. He uses supplemental oxygen at home as needed to maintain an oxygen saturation greater than 88 %, which is occasionally 2L. He also uses oxygen therapy at night. This morning he felt like he could not breathe and decided to come to the emergency room. He also reported an oxygen saturation in the 70s this morning at home. In the emergency room, he had mild tachycardia and tachypnea. He was always saturating well on rest but per ED provider reports he desaturated quite easily upon ambulation. Further the patient in did not improve symptomatically much after initial treatments. Initial CBC and chemistries were unremarkable, troponin was negative, however D-dimer was elevated to over 100. Patient underwent a CTA which showed chronic bullous lung disease and a new right lower lobe consolidation. Respiratory panel was negative. He was admitted to Medicine under observation status for COPD exacerbation and possible pneumonia. Patient History Medical History COPD (chronic obstructive pulmonary disease) (Chronic) Hearing loss (Chronic) Hernia (Resolved) Recurrent sinusitis (Chronic) Restless leg syndrome (Chronic) Tinnitus (Chronic) Ventral incisional hernia without gangrene (Chronic) Surgical History Anesthesia (Resolved) H/O resection of large bowel (Resolved) History of colostomy reversal (Resolved) History of colostomy reversal (Resolved) History of resection of large bowel (Resolved) Family & Social History Family History Father History of heart disease Mother Cancer Sister Cancer Social History: household members none Prior Living Arrangements Mobile home Safety & Behavioral: Feels Safe in Current Yes Environment Been Physically Hurt or No Threatened By a Person Suicidal Ideation Description None Suicide Plan Description No Plan Tobacco & Substance use: Smoking Status Former smoker alcohol intake never Substance Use Type former substance user Meds Home Medications and Allergies Home Medications Medication Instructions Recorded Confirmed Type Serrapeptase 1 dose PO PRN PRN 11/02/17 05/13/19 History polyethylene glycol 3350 [Miralax] 1 dose PO PRN PRN 11/02/17 05/13/19 History albuterol sulfate 90 mcg/actuation 1 puff INHALATION Q4H PRN #18 gram 04/30/19 05/13/19 Rx aerosol inhaler sennosides [senna] 8.6 mg PO BID PRN 05/13/19 05/13/19 History tiotropium bromide [Spiriva 2 puff INHALATION Q12H 05/13/19 05/13/19 History Respimat] Allergies Allergy/AdvReac Type Severity Reaction Status Date / Time No Known Drug Allergies Allergy Unverified 01/30/19 12:59 Review of Systems Review of Systems Narrative: All other systems reviewed with the patient and are negative unless otherwise stated. Exam Vital Signs (past 8 hours): - 05/13/19 08:50 05/13/19 09:30 05/13/19 10:30 Temperature 98.2 F Pulse Rate 98 H 84 89 Respiratory Rate 22 31 H 28 H Blood Pressure 136/92 H Blood Pressure [Left Arm] 129/88 133/85 Pulse Oximetry 95 96 97 05/13/19 11:35 05/13/19 12:00 05/13/19 13:00 Temperature Pulse Rate 100 H 94 H 114 H Respiratory Rate 28 H 21 29 H Blood Pressure Blood Pressure [Left Arm] 135/87 141/85 H 113/86 Pulse Oximetry 93 96 95 Oxygen Delivery Method Room Air Narrative Exam Narrative: GENERAL APPEARANCE: Well developed, well nourished, in no acute distress. Gets short of breath after prolonged sentences. SKIN: Inspection of the skin reveals no rashes, ulcerations or petechiae. HEENT: The sclerae were anicteric and conjunctivae were pink and moist. Extraocular movements were intact and pupils were equal, round with normal accommodation. External inspection of the ears and nose showed no scars, lesions, or masses. Lips, teeth, and gums showed normal mucosa. The oral mucosa, hard and soft palate, tongue and posterior pharynx were unremarkable. NECK: Supple and symmetric. There was no thyroid enlargement, and no tenderness, or masses were felt. CHEST: Normal AP diameter and normal contour without any kyphoscoliosis. LUNGS: Diffuse inspiratory and expiratory wheezes, no rhonchi or rales bilaterally CARDIOVASCULAR: There was a regular rate and rhythm without any murmurs, gallops, rubs. Peripheral pulses were 2+ and symmetric. ABDOMEN: Soft and nontender with normal bowel sounds. No ascites was noted. MUSCULOSKELETAL: There was no tenderness or effusions noted. Muscle strength and tone were normal. EXTREMITIES: No cyanosis, clubbing or edema. NEUROLOGIC: Alert and oriented x 3. Normal affect. Gait was normal. Strength is +5/5 in the Upper Extremities and Lower Extremities Bilaterally. Sensation to touch was normal. Objective ECG Impression: Normal sinus rhythm without evidence of ischemia. Imaging Chest x-ray: Radiologist's impression: Stable severe bullous emphysema. If there is strong concern for a developing superimposed bacterial process, please consider a short term followup chest series, as clinically directed. CT scan - chest: Radiologist's impression: 1. No pulmonary embolism. 2. Prominent emphysematous and bullous changes as above. Since opacity are noted within the right base since 2018. While these could represent foci of airspace disease such as pneumonia, other etiologies such as atelectasis, scarring or potentially mass lesion of other etiology cannot be excluded. Recommend interval followup with appropriate therapy if felt to be suggestive of infection. Short interval imaging followup with CT in 3 months or PET scan may be obtained as clinically indicated for further evaluation. Labs Result Diagrams: 05/13/19 09:36 05/13/19 09:36 Labs: Laboratory Results - last 24 hr 05/13/19 05/13/19 05/13/19 09:36 09:36 09:36 WBC 6.3 RBC 4.93 Hgb 15.1 Hct 44.9 MCV 91.0 MCH 30.6 MCHC 33.6 RDW 13.1 Plt Count 231 Neut % (Auto) 71.1 Lymph % (Auto) 8.7 L [place] % (Auto) 11.6 Eos % (Auto) 8.1 H Baso % (Auto) 0.5 Neut # (Auto) 4400 Lymph # (Auto) 500 L [place] # (Auto) 700 Eos # (Auto) 500 H Baso # (Auto) 0 PT 12.1 INR 1.1 APTT 33 D D-Dimer Sodium 141 Potassium 4.3 Chloride 104 Carbon Dioxide 32 BUN 14 Creatinine 0.70 Estimated GFR > 60.0 BUN/Creatinine Ratio 20.0 Glucose 106 Calcium 9.6 Magnesium 2.2 Total Bilirubin 0.5 AST 19 ALT 15 Alkaline Phosphatase 58 Total Creatine Kinase 90 CK-MB (CK-2) TNP CK-MB (CK-2) Rel Index TNP Troponin I < 0.012 NT-Pro-B Natriuret Pep Total Protein 7.7 Albumin 4.3 Globulin 3.4 Albumin/Globulin Ratio 1.3 Chlamy pneumoniae PCR Adenovirus (PCR) B.parapertussis DNA PCR Coronavirus OC43 (PCR) Coronavirus HKU1 (PCR) Coronavirus 229E (PCR) Coronavirus NL63 (PCR) Human Metapneumovir PCR Influenza Type A (PCR) Influenza Type B (PCR) M. pneumoniae (PCR) Parainfluenza 1 (PCR) Parainfluenza 2 (PCR) Parainfluenza 3 (PCR) Parainfluenza 4 (PCR) RSV (PCR) Entero/Rhino (PCR) 05/13/19 05/13/19 05/13/19 09:36 09:39 12:10 WBC RBC Hgb Hct MCV MCH MCHC RDW Plt Count Neut % (Auto) Lymph % (Auto) [place] % (Auto) Eos % (Auto) Baso % (Auto) Neut # (Auto) Lymph # (Auto) [place] # (Auto) Eos # (Auto) Baso # (Auto) PT INR APTT D-Dimer 811 H Sodium Potassium Chloride Carbon Dioxide BUN Creatinine Estimated GFR BUN/Creatinine Ratio Glucose Calcium Magnesium Total Bilirubin AST ALT Alkaline Phosphatase Total Creatine Kinase CK-MB (CK-2) CK-MB (CK-2) Rel Index Troponin I NT-Pro-B Natriuret Pep 50 Total Protein Albumin Globulin Albumin/Globulin Ratio Chlamy pneumoniae PCR Not detected Adenovirus (PCR) Not detected B.parapertussis DNA PCR Not detected Coronavirus OC43 (PCR) Not detected Coronavirus HKU1 (PCR) Not detected Coronavirus 229E (PCR) Not detected Coronavirus NL63 (PCR) Not detected Human Metapneumovir PCR Not detected Influenza Type A (PCR) Not detected Influenza Type B (PCR) Not detected M. pneumoniae (PCR) Not detected Parainfluenza 1 (PCR) Not detected Parainfluenza 2 (PCR) Not detected Parainfluenza 3 (PCR) Not detected Parainfluenza 4 (PCR) Not detected RSV (PCR) Not detected Entero/Rhino (PCR) Not detected Assessment & Plan Assessment & Plan narrative: Renan Pollard is a 63 year old male with PMH of severe COPD on 2L home O2 who presented to the emergency room with shortness of breath. He is admitted with COPD exacerbation. 1. Acute on chronic hypoxemic respiratory failure, present on admission -possibly secondary to COPD exacerbation or right lower lobe consolidation/possible pneumonia. CTA negative for PE but did show consolidation in the RLL and severe bullous changes. He is more tachypneic than usual, and he does desaturate intermittently into the 80s. This is chronic, acute component is that he seems to be decided trending more frequently than usual as noted above in HPI. He reports at home O2 saturations dropped into the 70s at times recently. -continue prednisone at 40 mg daily, consider prolonged taper given severity of COPD and previous relapse after outpatient course steroids given previously. -continue treatment for possible pneumonia given right lower lobe consolidation with ceftriaxone and azithromycin, respiratory panel is negative. Patient's cough is nonproductive but no air movement will order sputum culture however may not be be able to be collected and patient has already received antibiotics. Further workup includes urine Legionella and strep antigens. -DuoNebs t.i.d. scheduled with as needed albuterol. -respiratory therapy evaluation and treatment 2. COPD exacerbation, present on admission, active -acute management with nebulizers as noted above -home medications are currently only Spiriva and a rescue inhaler. Consider adding a 2nd controller medication (he was previously on breo which appeared to work well for him). -he has severe COPD at baseline, FEV1 of 20% per documentation and is currently on home oxygen. He just recently saw a new provider at the looking for stem cell therapy which is no longer available. He has gone through pulmonary rehab. He is currently only taking Spiriva and a rescue inhaler as noted above for his symptoms. He has been using albuterol quite frequently and is used as much albuterol already this year as he had done all of 2019. He does not currently want a lung transplant. - consider palliative care consultation if still here on 05/15. - he is scheduled for pulmonary repeat visit at the in approximately 1 month. 3. Right lower lobe consolidation, unknown chronicity, present on admission -continue antibiotics as noted above 4. Constipation, chronic, stable - history of bowel obstruction with resection and temporary ostomy. Now with large incisional hernia. -continue senna Code: Full, surrogate decision maker is his daughter DVT: Daily Lovenox Dispo: Admitted as inpatient as his stay is expected to exceed 2 midnights Quality VTE Deep Vein Thrombosis/Pulmonary Embolism Present on Admission: No
[2019-05-13] MEDS: ALBUTEROL 2.5 MG/3 ML NEB (ADULT) INH (16:34)
[2019-05-13] MEDS: SENNOSIDES 8.6 MG TABLET PO (20:21)
[2019-05-14] VITALS (7 sets, daily range): BP systolic 111–145; BP diastolic 71–80; PULSE 101–118; RESP 18–24; TEMP 36.6–37; O2SAT 94–97
[2019-05-14] MEDS: ALBUTEROL 2.5 MG/3 ML NEB (ADULT) INH (04:30)
[2019-05-14 05:02] LABS: Add Manual Diff / Slide Review NO; Basophils Absolute Auto 0 /uL (0-100); Basophils Percent Auto 0.2 % (0-2); Eosinophils Absolute Auto 100 /uL (0-450); Hematocrit 47.8 % (41-53); Hemoglobin 15.6 g/dL (13.5-17.5); Lymphocytes Absolute Auto 800 /uL (1100-4500); Lymphocytes Percent Auto 6.1 % (25-40); Mean Corpuscular HGB Conc 32.7 % (30-36); Mean Corpuscular Volume 91.7 fL (80-100); Monocytes Absolute Auto 1000 /uL (0-900); Monocytes Percent Auto 8.2 % (3-14); Neutrophils Absolute Auto 10600 /uL (1500-7000); Neutrophils Percent Auto 84.5 % (50-75); Platelet Count 279 X10^3/uL (150-400); Red Blood Cell Count 5.21 X10^6/uL (4.5-5.9); White Blood Cell Count 12.6 X10^3/uL (4.5-11.0)
[2019-05-14 05:13] LABS: BUN Creatinine Ratio 18.6 (6-22); Blood Urea Nitrogen 13 mg/dL (9-20); Carbon Dioxide 31 mmol/L (22-32); Chloride 103 mmol/L (98-107); Estimated Glomerular Filt Rate > 60.0 mL/min (>60); Glucose 124 mg/dL (80-110); HEMOLYSIS 23 (0-50); Magnesium 2.2 mg/dL (1.6-2.3); Potassium 4.6 mmol/L (3.4-5.1); Sodium 141 mmol/L (137-145)
--- NOTE | 2019-05-14 06:58 | PC.NURSE ---
Pt complained of SOB/more wheezing at 0430, was at 89% on 2L NC. Given albuterol tx and improved
[2019-05-14] MEDS: ENOXAPARIN 40 MG/0.4 ML SYRINGE SUBCUT (08:33)
[2019-05-14] MEDS: predniSONE 20 MG TABLET 40 MG PO (08:33)
[2019-05-14] MEDS: ALBUTEROL/IPRATROPIUM 3 ML AMPUL INH ×3 (09:35→15:15)
--- NOTE | 2019-05-14 11:05 | PC.NURSE ---
Assess- Patient is A&Ox3. He would really like to be discharged to home, but Dr. Berry wants to keep him until later this evening to see if his breathing improves. He is sob on exertion, and when talking. Lung sounds with wheezes throughout lung hayes. He is on 3l of o2 and gets up independently. Voices no complains other than wanting to go home.
--- NOTE | 2019-05-14 12:25 | PM.DS.1 ---
History of Present Illness History of Present Illness Date Patient Seen: 05/14/19 Time Patient Seen: 12:25 Chief complaint: DIFFICULTY BREATHING WITH EXERTION,COPD Narrative: Renan Pollard is a 63 year old male with PMH of severe COPD on 2L home O2 who presented to the emergency room with shortness of breath. Patient states that he has been having worsening short of breath really since the holidays. He last saw his court specialist about a month ago to give him a 1 week course of steroids and antibiotics. He was feeling back to almost normal, however 3 days after he completed his course he began to be short of breath again. Patient currently has been treating his shortness of breath with home nebulizers, and reports that over the 1st month of this year he has used more nebulizers then all of last year combined. He further reports worsened dyspnea on exertion, limited to needing a nebulizer treatment after walking 10 ft. Before he was able to walk about 15 ft, and then would get short of breath, but this would always improved without nebulizer treatments. He uses supplemental oxygen at home as needed to maintain an oxygen saturation greater than 88 %, which is occasionally 2L. He also uses oxygen therapy at night. This morning he felt like he could not breathe and decided to come to the emergency room. He also reported an oxygen saturation in the 70s this morning at home. In the emergency room, he had mild tachycardia and tachypnea. He was always saturating well on rest but per ED provider reports he desaturated quite easily upon ambulation. Further the patient in did not improve symptomatically much after initial treatments. Initial CBC and chemistries were unremarkable, troponin was negative, however D-dimer was elevated to over 100. Patient underwent a CTA which showed chronic bullous lung disease and a new right lower lobe consolidation. Respiratory panel was negative. He was admitted to Medicine under observation status for COPD exacerbation and possible pneumonia. Discharge Providers Provider Date of admission: 05/13/19 12:45 Discharge Date: 05/14/19 Primary care physician: Srini Fong MD Consults: 05/13/19 09:17 Consult to Respiratory Therapy Evaluate & Treat Comment: Physician Instructions: Evaluate and treat Discharge provider: Eder Britton DO Summary Hospital Course Discharge Diagnosis: 1. Acute on chronic hypoxemic respiratory failure, present on admission - 2. COPD exacerbation, present on admission, active 3. Right lower lobe consolidation, unknown chronicity, present on admission 4. Constipation, chronic, stable Hospital Course: Renan Pollard is a 63 year old male with PMH of severe COPD on 2L home O2 who presented to the emergency room with shortness of breath. He was admitted with COPD exacerbation and improved rapidly with steroids. He returned to his baseline dyspnea and was discharged home. 1. Acute on chronic hypoxemic respiratory failure, present on admission -possibly secondary to COPD exacerbation or right lower lobe consolidation/possible pneumonia but most likely COPD exacerbation. CTA negative for PE but did show consolidation in the RLL and severe bullous changes. He was more tachypneic than usual, and he did desaturate intermittently into the 80s. This is chronic, acute component is that he seems to be more dyspnic on exertion with increasing inhaler use. He reports at home O2 saturations dropped into the 70s at times. Upon discharge patient had symptomatically improved to baseline. -continue prednisone at 40 mg daily x 3 days, 30 mg x3 days, 20 mg x 3 days, and 10 mg x3 days as an outpatient given he did not respond to initial short course of 40 mg. -respiratory panel negaitve, as was pneumonia evaluation on admission. However given consolidation he will be discharged on augmentin x3 additional days. He received ceftriaxone and azithromycin while inpatient. 2. COPD exacerbation, present on admission, active -patient improved with steroids and nebulizer treatments as noted above. -home medications are currently only Spiriva and a rescue inhaler. Consider adding a 2nd controller medication (he was previously on breo which appeared to work well for him). He has a follow up with pulmonary at soon. He would also like to transfer back to his old court specialist in [facility]. -he has severe COPD at baseline, FEV1 of 20% per documentation and is currently on home oxygen. He just recently saw a new provider at the looking for stem cell therapy which is no longer available. He has gone through pulmonary rehab. He is currently only taking Spiriva and a rescue inhaler as noted above for his symptoms. He does not currently want a lung transplant. - steroid taper as noted above. 3. Right lower lobe consolidation, unknown chronicity, present on admission -continue antibiotics as noted above 4. Constipation, chronic, stable - history of bowel obstruction with resection and temporary ostomy. Now with large incisional hernia. -continue senna Exam Vital Signs (past 8 hours): - 05/14/19 04:28 05/14/19 08:08 05/14/19 09:39 Temperature 97.8 F 98.4 F Pulse Rate 101 H 108 H Respiratory Rate 18 18 Blood Pressure 145/80 H 118/71 Pulse Oximetry 96 94 94 05/14/19 09:55 05/14/19 11:56 Temperature Pulse Rate 117 H 106 H Respiratory Rate 24 Blood Pressure Pulse Oximetry 94 96 Oxygen Delivery Method Room Air Oxygen Flow Rate 3 Narrative Exam Narrative: GENERAL APPEARANCE: Well developed, well nourished, in no acute distress. Gets short of breath after prolonged sentences. SKIN: Inspection of the skin reveals no rashes, ulcerations or petechiae. HEENT: The sclerae were anicteric and conjunctivae were pink and moist. Extraocular movements were intact and pupils were equal, round with normal accommodation. External inspection of the ears and nose showed no scars, lesions, or masses. Lips, teeth, and gums showed normal mucosa. The oral mucosa, hard and soft palate, tongue and posterior pharynx were unremarkable. NECK: Supple and symmetric. There was no thyroid enlargement, and no tenderness, or masses were felt. CHEST: Normal AP diameter and normal contour without any kyphoscoliosis. LUNGS: improved wheezing, now resolving with cough. no rhonchi or rales bilaterally. CARDIOVASCULAR: There was a regular rate and rhythm without any murmurs, gallops, rubs. Peripheral pulses were 2+ and symmetric. ABDOMEN: Soft and nontender with normal bowel sounds. No ascites was noted. MUSCULOSKELETAL: There was no tenderness or effusions noted. Muscle strength and tone were normal. EXTREMITIES: No cyanosis, clubbing or edema. NEUROLOGIC: Alert and oriented x 3. Normal affect. Gait was normal. Strength is +5/5 in the Upper Extremities and Lower Extremities Bilaterally. Sensation to touch was normal. Objective Labs Result Diagrams: 05/14/19 04:40 05/14/19 04:40 Labs: Laboratory Results - last 24 hr 05/13/19 05/14/19 05/14/19 12:10 04:40 04:40 WBC 12.6 H D RBC 5.21 Hgb 15.6 Hct 47.8 MCV 91.7 MCH 30.0 MCHC 32.7 RDW 13.0 Plt Count 279 Neut % (Auto) 84.5 H Lymph % (Auto) 6.1 L [place] % (Auto) 8.2 Eos % (Auto) 1.0 L Baso % (Auto) 0.2 Neut # (Auto) 85175 H Lymph # (Auto) 800 L [place] # (Auto) 1000 H Eos # (Auto) 100 Baso # (Auto) 0 Sodium 141 Potassium 4.6 Chloride 103 Carbon Dioxide 31 BUN 13 Creatinine 0.70 Estimated GFR > 60.0 BUN/Creatinine Ratio 18.6 Glucose 124 H Calcium 10.0 Magnesium 2.2 Chlamy pneumoniae PCR Not detected Adenovirus (PCR) Not detected B.parapertussis DNA PCR Not detected Coronavirus OC43 (PCR) Not detected Coronavirus HKU1 (PCR) Not detected Coronavirus 229E (PCR) Not detected Coronavirus NL63 (PCR) Not detected Human Metapneumovir PCR Not detected Influenza Type A (PCR) Not detected Influenza Type B (PCR) Not detected M. pneumoniae (PCR) Not detected Parainfluenza 1 (PCR) Not detected Parainfluenza 2 (PCR) Not detected Parainfluenza 3 (PCR) Not detected Parainfluenza 4 (PCR) Not detected RSV (PCR) Not detected Entero/Rhino (PCR) Not detected Discharge Plan Discharge Plan Patient Disposition: Home Discharge comment: You were admitted to the hospital with a COPD exacerbation. You improved with steroids and antibiotics for a possible pneumonia. You are being discharged to finish 3 days of antibiotics and you will be discharged on a 12 day steroid taper. You should follow up with your court specialist as scheduled. You are also being sent a fluticasone nasal spray to help with your nasal congestion. Discharge orders & Medications Prescriptions: New fluticasone propionate 50 mcg/actuation [place],Suspension 1 spray intranasal BID 7 Days Qty: 15 RF: 0 prednisone 10 mg tablet See Rx Instructions .ROUTE .COMPLEX Qty: 30 RF: 0 amoxicillin-pot clavulanate [Augmentin] 875-125 mg tablet 1 tab PO BID 3 Days Qty: 6 RF: 0 Continued albuterol sulfate [ProAir HFA] 90 mcg/actuation HFA aerosol inhaler 1 puff INHALATION Q4H PRN (Reason: shortness of breath) Qty: 18 RF: 5 Spiriva Respimat 1.25 mcg/actuation mist 2 puff INHALATION Q12H RF: 0 sennosides [senna] 8.6 mg Tablet 8.6 mg PO BID PRN (Reason: Constipation) RF: 0 polyethylene glycol 3350 [Miralax] 17 gram Powder In Packet 1 dose PO PRN PRN (Reason: Constipation) RF: 0 Serrapeptase 1 dose PO PRN PRN (Reason: unknown) RF: 0 Follow up/Referrals: Srini Fong MD [Primary Care Provider] - Discharge Health Status Health Concerns: Severe COPD with exacerbation Diet/Activity/Treatments Diet: Diet as Tolerated Activity: As tolerated Visit Report/Discharge Packet Instructions: Chronic Obstructive Pulmonary Disease, DI for Chronic Obstructive Pulmonary Disease Discharge Data Primary Care Provider: Srini Fong Discharges patient from system. Discharge Date/Time: 05/14/19 15:44 Quality VTE Deep Vein Thrombosis/Pulmonary Embolism Present on Admission: No
[2019-05-14] MEDS: CEFTRIAXONE 1 GM/50 ML FROZ.PIGGY IV (12:57)
[2019-05-14] MEDS: FLUTICASONE 120 SPRAY/16 GM SPRAY.SUSP NASAL (12:57)
[2019-05-14] MEDS: SODIUM CHLORIDE 0.9% FLUSH 10 ML IV (12:57)
[2019-05-14] MEDS: guaiFENesin ER 600 MG TAB PO (12:57)
[2019-05-14] MEDS: AZITHROMYCIN 500 MG in DEXTROSE 5% IN WATER 250 ML IV (13:39)
--- NOTE | 2019-05-14 14:26 | CM.DANOTE ---
Discharge Planning/Care Management DCP: assessment: case received, EMR reviewed and met with pt and his daughter Jessica Pollard. Introduced self and role. Pt is a 63 year old male who admitted yesterday afternoon to care of hospitalist team. Payer: [email or web address]. PCP: Dr. Fong. Sees a pricing strategist at the . Pt is found up in the room, IV running, doing hygiene tasks at sink. He states I am going home today no matter what so it is good that the is agreeing that I can. Pt's daughter Jessica laughs and confirms same. A d/c order is noted. P: home this afternoon after IV treatment is completed and CAMACHO Wagner completes the d/c paperwork. CM Discharge Assessment Start: 05/14/19 14:25 Freq: Status: Active Protocol: Document 05/14/19 14:25 ITV (Rec: 05/14/19 14:26 ITV [id number]) Discharge Planning Assessment Advance Directives? No History Provided By Patient,Family Member,Medical Record Has Patient been admitted in last 30 No days? Prior Living Arrangements Mobile home Household Members none Independent with ADL's Yes Is patient alert and oriented? Yes Review Status In Process
--- NOTE | 2019-05-14 15:38 | PC.NURSE ---
Pt and daughter state they understand discharge instructions and plan to make a follow up appointment with Dr. Fong. Pt also is picking up his medications from pharmacy. PIV removed without incident. Pt left with daughter to home via wheelchair.
[2019-05-16 19:37] LABS: Strep pneumoniae Ag, Urine NOT DETECTED
== END 2019-05-14 15:44 | disposition home or self-care (01) | DRG 140 ==
LOC: ED 12:29 → AC 13:27
PROVIDERS: Admitting Provider Internal Medicine; Emergency Provider Emergency Medicine; Family Provider Family Medicine; PCP Student in an Organized Health Care Education/Training Program; Referring Provider Emergency Medicine; Visit Provider Internal Medicine
DX: J44.1 Chronic obstructive pulmonary disease with (acute) exacerbation (principal); J96.21 Acute and chronic respiratory failure with hypoxia; Z99.81 Dependence on supplemental oxygen; K59.09 Other constipation; Z87.891 Personal history of nicotine dependence
CPT/HCPCS: 36415; 71045; 71275; 80048; 80053; 82550; 83735; 83880; 84484; 85025; 85379; 85610; 85730; 87449; 87633; 93005; 94640; 96365; 96375; 99285; J1650; J2930; J7613; Q9967

== ENCOUNTER 2019-08-03 14:49 | Emergency (ER) | payer OTHER, MEDICAID, SELFPAY ==
[2019-05-13 13:45] VITALS: BMI 28.3
[2019-08-03] VITALS (12 sets, daily range): BP systolic 105–137; BP diastolic 62–92; PULSE 104–118; RESP 24–58; TEMP 36.4; O2SAT 94–99; BMI 25.8
[2019-08-03 15:24] LABS: Add Manual Diff / Slide Review NO; Basophils Absolute Auto 0 /uL (0-100); Basophils Percent Auto 0.4 % (0-2); Eosinophils Absolute Auto 700 /uL (0-450); Eosinophils Percent Auto 6.4 % (2-4); Hematocrit 47.3 % (41-53); Hemoglobin 15.7 g/dL (13.5-17.5); Lymphocytes Absolute Auto 700 /uL (1100-4500); Lymphocytes Percent Auto 6.4 % (25-40); Mean Corpuscular HGB Conc 33.2 % (30-36); Mean Corpuscular Hemoglobin 30.5 PG (26-34); Mean Corpuscular Volume 91.8 fL (80-100); Monocytes Absolute Auto 1200 /uL (0-900); Monocytes Percent Auto 10.8 % (3-14); Neutrophils Absolute Auto 8400 /uL (1500-7000); Platelet Count 268 X10^3/uL (150-400); Red Blood Cell Count 5.15 X10^6/uL (4.5-5.9); White Blood Cell Count 11.1 X10^3/uL (4.5-11.0)
[2019-08-03] MEDS: ALBUTEROL/IPRATROPIUM 3 ML AMPUL INH (15:27)
[2019-08-03] MEDS: methylPREDNISolone 125 MG/2 ML VIAL IV (15:28)
[2019-08-03] MEDS: SODIUM CHLORIDE 0.9% 1,000 ML 100 ML IV (15:28)
[2019-08-03] MEDS: MAGNESIUM SULFATE 2 GM/50 ML PIGGYBACK IV (15:29)
--- NOTE | 2019-08-03 15:32 | ED_ITS ---
HPI - SOB/Dyspnea <Linwood Sheth MD - Last Filed: 08/04/19 08:19> General Chief Complaint: Shortness of Breath/Dyspnea Stated Complaint: SOB, crap in lungs Time Seen by Provider: 08/03/19 15:10 Source: patient and family Mode of arrival: Wheelchair Limitations: no limitations History of Present Illness HPI Narrative: CC: SOB flair of COPD HPI: The patient is acutely short of breath with tachypnea pursed lips and has difficulty in providing history at this time. He periodically answers questions yes or no. His history is provided primarily by his daughter at his bedside. The patient has a history of COPD with increased congestion and difficulty in breathing all week. Difficulty in breathing has been progressively getting worse. He has a cough that is productive of a clear sputum. He has been using Mucinex at home. He has some chest and primarily belly pain with his coughing and shortness of breath. He has had feelings of being feverish with chills but no sweats. He has had a headache from coughing. He no longer smokes cigarettes or drinks alcohol. He admits to history of COPD but denies a history of myocardial infarction congestive heart failure hypertension or diabetes mellitus. He has been having progressive wheezing with dyspnea on any type of exertion. He has had palpitations with dizziness and racing of his heart. He denies any abdominal pain as well as nausea vomiting diarrhea melena hematochezia. He has had no urinary symptoms. Related Data Home Medications Medication Instructions Recorded Confirmed Serrapeptase 1 dose PO PRN PRN 11/02/17 05/29/19 polyethylene glycol 3350 [Miralax] 1 dose PO PRN PRN 11/02/17 05/29/19 Spiriva Respimat 2 puff INHALATION Q12H 05/13/19 05/29/19 sennosides [senna] 8.6 mg PO BID PRN 05/13/19 05/29/19 Previous Rx's Medication Instructions Recorded albuterol sulfate 90 mcg/actuation 1 puff INHALATION Q4H PRN #18 gram 04/30/19 aerosol inhaler albuterol sulfate 2.5 mg INHALATION Q4-6H PRN #180 ml 05/29/19 amoxicillin-pot clavulanate 1 tab PO Q12H 10 Days #20 tab 08/03/19 [Augmentin] prednisone 20 mg PO DAILY #20 tab 08/03/19 Allergies Allergy/AdvReac Type Severity Reaction Status Date / Time No Known Drug Allergies Allergy Unverified 05/29/19 13:15 Review of Systems <Linwood Sheth MD - Last Filed: 08/04/19 08:19> Review of Systems Narrative: The patient's review of systems are all negative except for those mentioned in the history of present illness. Patient History <Linwood Sheth MD - Last Filed: 08/04/19 08:19> Medical History COPD (chronic obstructive pulmonary disease) (Chronic) COPD exacerbation (Inactive) Hearing loss (Chronic) Hernia (Resolved) Recurrent sinusitis (Chronic) Restless leg syndrome (Chronic) Tinnitus (Chronic) Ventral incisional hernia without gangrene (Chronic) Surgical History Anesthesia (Resolved) H/O resection of large bowel (Resolved) History of colostomy reversal (Resolved) History of colostomy reversal (Resolved) History of resection of large bowel (Resolved) Family History Father History of heart disease Mother Cancer Sister Cancer Social History household members: none Smoking Status: Former smoker alcohol intake: never Smoking Status: Former smoker alcohol intake frequency: 0-2 drinks per day Substance Use Type: former substance user Exam <Linwood Sheth MD - Last Filed: 08/04/19 08:19> Narrative Exam Narrative: PHYSICAL EXAM: CONSTITUTIONAL: Awake, Alert, Oriented, in severe respiratory distress, breathing with pursed lips tachypneic, having difficulty in speaking and providing any history. HEAD: AT/NC EENT: PERRL, FROM of eyes, no discharge. NECK: Supple, no obvious JVD, Trachea is midline without stridor, no palpable LN. SPINE: Palpation of the cervical, Thoracic, Lumbar or Sacral spine reveals no gross deformity or tenderness. No CVA tenderness. THORAX: No deformity, retractions, chest wall tenderness. increased AP diameter. Expiratory phase much greater than inspiratory. LUNGS: Markedly decreased breath sounds bilaterally with diffuse expiratory rhonchi and wheezes anteriorly and posteriorly. HEART: Normal heart tones, regular rhythm tachycardic without murmur. Heart tones are distant ABDOMEN: Soft, non-tender, normal bowel sounds without guarding, rebound, rigi dity or palpable mass. There appears to be multiple weaknesses in the abdominal wall in the lower abdomen suggestive of ventral wall hernia EXTREMITIES: No edema, deformity, tenderness or cyanosis. SKIN: No rash, bruising, petechiae or purpura. NEURO: Awake, alert, cranial nerves II-XII are symmetrical , moves all 4 extremities The patient is acutely anxious. Initial Vital Signs Initial Vital Signs: Vital Signs Temperature 97.5 F L 08/03/19 14:55 Pulse Rate 112 H 08/03/19 14:55 Respiratory Rate 58 H 08/03/19 14:55 Blood Pressure 137/92 H 08/03/19 14:55 Pulse Oximetry 99 08/03/19 14:55 <Gerardo Spain DO - Last Filed: 08/04/19 00:12> Initial Vital Signs Initial Vital Signs: Vital Signs Temperature 97.5 F L 08/03/19 14:55 Pulse Rate 112 H 08/03/19 14:55 Respiratory Rate 58 H 08/03/19 14:55 Blood Pressure 137/92 H 08/03/19 14:55 Pulse Oximetry 99 08/03/19 14:55 Course <Linwood Sheth MD - Last Filed: 08/04/19 08:19> Course Course Narrative: 1556: The patient is doing much better than on admission. At this time we are not going to place the patient on BiPAP. We are given multiple breathing treatments with an albuterol treatment at this time. The patient has been administered magnesium and Solu-Medrol. He appears to be primarily an acute exacerbation of COPD. However, he is being evaluated for Covid since we are in the middle of the Covid crisis. The patient's D-dimer is significantly elevated with increased shortness of breath, difficulty in breathing and sinus tachycardia on the monitor a CT angiogram of his chest has been ordered. 174: The patient's CT scan of his chest reveals the pulmonary arteries to be normal in size without any demonstrate a bowl intraluminal filling defects for a pulmonary embolism. The patient has profound bulla formation involving the pulmonary apices. He has emphysematous changes elsewhere. He has consolidative changes involving the right lower lobe with enhancement which may represent a pneumonia or atelectasis. 1751: I discussed the patient with Dr. Britton who states that he is going to come down to evaluate the patient before he decides to admit the patient. The patient's BNP is 33 for. He remains in sinus tachycardia and will be administered a L of fluid. His troponin is less than 0.012. The patient has significantly improved after being administered magnesium Solu-Medrol and multiple breathing treatments. CT scan suggests that he has a right lower lobe pneumonia. Orders Ordered: Discontinued Medications Albuterol (Ventolin) 2.5 mg INH [id number] PRN PRN Reason: Shortness Of Breath Last Admin: 08/03/19 16:18 Dose: 2.5 mg Documented by: DANK Albuterol/Ipratropium (Duoneb) 3 ml INH NOW ONE Stop: 08/03/19 15:11 Last Admin: 08/03/19 15:27 Dose: 3 ml Documented by: DANK Magnesium Sulfate (Magnesium Sulfate) 2 gm in 50 mls @ 25 mls/hr IV NOW ONE Stop: 08/03/19 17:09 Last Infusion: 08/03/19 17:50 Dose: 0 mls/hr Documented by: GREGORIA Cosigned by: DAVID Admin: 08/03/19 15:29 Dose: 25 mls/hr Documented by: GREGORIA Cosigned by: RITA Sodium Chloride (Normal Saline 0.9%) 1,000 mls @ 100 mls/hr IV BOLUS ONE Stop: 08/04/19 01:20 Last Infusion: 08/03/19 20:45 Dose: 0 mls/hr Documented by: Admin: 08/03/19 15:28 Dose: 100 mls/hr Documented by: GREGORIA Cefepime HCl 2 gm/ Sodium (Chloride) 100 mls @ 200 mls/hr IV NOW ONE Stop: 08/03/19 17:48 Last Infusion: 08/03/19 20:13 Dose: 0 mls/hr Documented by: Admin: 08/03/19 19:38 Dose: 200 mls/hr Documented by: GREGORIA Vancomycin HCl (Vancomycin) 1,000 mg in 200 mls @ 200 mls/hr IV Q12H LETTY Last Infusion: 08/03/19 19:37 Dose: 0 mls/hr Documented by: Admin: 08/03/19 18:31 Dose: 200 mls/hr Documented by: GREGORIA Sodium Chloride (Normal Saline 0.9%) 1,000 mls @ 1,000 mls/hr IV BOLUS ONE Stop: 08/03/19 18:52 Last Infusion: 08/03/19 20:13 Dose: 0 mls/hr Documented by: Admin: 08/03/19 18:30 Dose: 1,000 mls/hr Documented by: GREGORIA Methylprednisolone (Solu-Medrol 125 Mg Vial) 125 mg IV NOW ONE Stop: 08/03/19 15:11 Last Admin: 08/03/19 15:28 Dose: 125 mg Documented by: GREGORIA Vital Signs Vital signs: Vital Signs - 8 hr 08/03/19 16:19 08/03/19 16:30 08/03/19 17:00 Pulse Rate 107 H 114 H 113 H Respiratory Rate 32 H 50 H Blood Pressure [Left Arm] 105/62 115/81 Pulse Oximetry 97 99 99 08/03/19 18:00 08/03/19 18:36 08/03/19 19:57 Pulse Rate 110 H 112 H 109 H Respiratory Rate 32 H 30 H 24 Blood Pressure [Left Arm] 107/82 125/84 120/76 Pulse Oximetry 99 96 98 08/03/19 20:45 Pulse Rate 108 H Respiratory Rate 34 H Blood Pressure [Left Arm] 108/72 Pulse Oximetry 94 <Gerardo Spain DO - Last Filed: 08/04/19 00:12> Orders Ordered: Discontinued Medications Albuterol (Ventolin) 2.5 mg INH [id number] PRN PRN Reason: Shortness Of Breath Last Admin: 08/03/19 16:18 Dose: 2.5 mg Documented by: DANK Albuterol/Ipratropium (Duoneb) 3 ml INH NOW ONE Stop: 08/03/19 15:11 Last Admin: 08/03/19 15:27 Dose: 3 ml Documented by: DANK Magnesium Sulfate (Magnesium Sulfate) 2 gm in 50 mls @ 25 mls/hr IV NOW ONE Stop: 08/03/19 17:09 Last Infusion: 08/03/19 17:50 Dose: 0 mls/hr Documented by: GREGORIA Cosigned by: DAVID Admin: 08/03/19 15:29 Dose: 25 mls/hr Documented by: GREGORIA Cosigned by: RITA Sodium Chloride (Normal Saline 0.9%) 1,000 mls @ 100 mls/hr IV BOLUS ONE Stop: 08/04/19 01:20 Last Infusion: 08/03/19 20:45 Dose: 0 mls/hr Documented by: Admin: 08/03/19 15:28 Dose: 100 mls/hr Documented by: GREGORIA Cefepime HCl 2 gm/ Sodium (Chloride) 100 mls @ 200 mls/hr IV NOW ONE Stop: 08/03/19 17:48 Last Infusion: 08/03/19 20:13 Dose: 0 mls/hr Documented by: Admin: 08/03/19 19:38 Dose: 200 mls/hr Documented by: GREGORIA Vancomycin HCl (Vancomycin) 1,000 mg in 200 mls @ 200 mls/hr IV Q12H LETTY Last Infusion: 08/03/19 19:37 Dose: 0 mls/hr Documented by: Admin: 08/03/19 18:31 Dose: 200 mls/hr Documented by: GREGORIA Sodium Chloride (Normal Saline 0.9%) 1,000 mls @ 1,000 mls/hr IV BOLUS ONE Stop: 08/03/19 18:52 Last Infusion: 08/03/19 20:13 Dose: 0 mls/hr Documented by: Admin: 08/03/19 18:30 Dose: 1,000 mls/hr Documented by: GREGORIA Methylprednisolone (Solu-Medrol 125 Mg Vial) 125 mg IV NOW ONE Stop: 08/03/19 15:11 Last Admin: 08/03/19 15:28 Dose: 125 mg Documented by: GREGORIA Vital Signs Vital signs: Vital Signs - 8 hr 08/03/19 16:19 08/03/19 16:30 08/03/19 17:00 Pulse Rate 107 H 114 H 113 H Respiratory Rate 32 H 50 H Blood Pressure [Left Arm] 105/62 115/81 Pulse Oximetry 97 99 99 08/03/19 18:00 08/03/19 18:36 08/03/19 19:57 Pulse Rate 110 H 112 H 109 H Respiratory Rate 32 H 30 H 24 Blood Pressure [Left Arm] 107/82 125/84 120/76 Pulse Oximetry 99 96 98 08/03/19 20:45 Pulse Rate 108 H Respiratory Rate 34 H Blood Pressure [Left Arm] 108/72 Pulse Oximetry 94 MDM - SOB/Dyspnea <Linwood Sheth MD - Last Filed: 08/04/19 08:19> Medical Records Attestation: I reviewed the patient's medical records. Lab Data Attestation: I reviewed the patient's lab results. Result diagrams: 08/03/19 15:00 08/03/19 15:00 Labs: Lab Results 08/03/19 08/03/19 08/03/19 Range/Units 15:00 15:00 15:00 WBC 11.1 H (4.5-11.0) X10^3/uL RBC 5.15 (4.5-5.9) X10^6/uL Hgb 15.7 (13.5-17.5) g/dL Hct 47.3 (41-53) % MCV 91.8 (80-100) fL MCH 30.5 (26-34) PG MCHC 33.2 (30-36) % RDW 14.0 (11.6-14.8) % Plt Count 268 (150-400) X10^3/uL Neut % (Auto) 76.0 H (50-75) % Lymph % (Auto) 6.4 L (25-40) % [place] % (Auto) 10.8 (3-14) % Eos % (Auto) 6.4 H (2-4) % Baso % (Auto) 0.4 (0-2) % Neut # (Auto) 8400 H (7043-8026) /uL Lymph # (Auto) 700 L (2353-0166) /uL [place] # (Auto) 1200 H (0-900) /uL Eos # (Auto) 700 H (0-450) /uL Baso # (Auto) 0 (0-100) /uL D-Dimer (<230) ng/mL ABG pH (7.35-7.45) ABG pCO2 (35-45) mmHg ABG pO2 (80-100) mmHg ABG HCO3 (22-26) mmol/L ABG Total CO2 (21-31) mmol/L ABG O2 Saturation (95-100) % ABG Base Excess (-2-2) mmol/L FiO2 Sodium 139 (137-145) mmol/L Potassium 4.5 (3.4-5.1) mmol/L Chloride 102 (98-107) mmol/L Carbon Dioxide 29 (22-32) mmol/L BUN 10 (9-20) mg/dL Creatinine 0.60 L (0.66-1.25) mg/dL Estimated GFR > 60.0 (>60) mL/min BUN/Creatinine Ratio 16.7 (6-22) Glucose 121 H (80-110) mg/dL Lactate 1.2 (0.7-2.1) mmol/L Calcium 10.0 (8.4-10.2) mg/dL Ferritin 66 (18-464) ng/mL Total Bilirubin 0.7 (0.2-1.3) mg/dL AST 20 (17-59) IU/L ALT 12 (<50) IU/L Alkaline Phosphatase 69 (38-126) U/L Total Creatine Kinase 24 L (55-170) U/L CK-MB (CK-2) TNP CK-MB (CK-2) Rel Index TNP Troponin I < 0.012 (0.01-0.034) ng/mL C-Reactive Protein 5.3 H (<1.0) mg/dL NT-Pro-B Natriuret Pep 33 (<125) pg/mL Total Protein 8.1 (6.3-8.2) g/dL Albumin 4.4 (3.5-5.0) g/dL Globulin 3.7 (1.7-4.1) g/dL Albumin/Globulin Ratio 1.2 (1.0-2.8) Procalcitonin (<0.5) ng/mL Urine RBC (0-5/HPF) Urine WBC (0-5/HPF) Ur Squamous Epith Cells (0-5/HPF) Urine Bacteria (None) Hyaline Casts (None) Urine Mucus (Negative) Ur Culture Indicated? COVID-19 PCR 08/03/19 08/03/19 08/03/19 Range/Units 15:10 15:13 15:17 WBC (4.5-11.0) X10^3/uL RBC (4.5-5.9) X10^6/uL Hgb (13.5-17.5) g/dL Hct (41-53) % MCV (80-100) fL MCH (26-34) PG MCHC (30-36) % RDW (11.6-14.8) % Plt Count (150-400) X10^3/uL Neut % (Auto) (50-75) % Lymph % (Auto) (25-40) % [place] % (Auto) (3-14) % Eos % (Auto) (2-4) % Baso % (Auto) (0-2) % Neut # (Auto) (3046-1649) /uL Lymph # (Auto) (5937-1202) /uL [place] # (Auto) (0-900) /uL Eos # (Auto) (0-450) /uL Baso # (Auto) (0-100) /uL D-Dimer 2781 H (<230) ng/mL ABG pH 7.37 (7.35-7.45) ABG pCO2 51.0 H (35-45) mmHg ABG pO2 96 (80-100) mmHg ABG HCO3 29 H (22-26) mmol/L ABG Total CO2 31 (21-31) mmol/L ABG O2 Saturation 97 (95-100) % ABG Base Excess 4.0 H (-2-2) mmol/L FiO2 24 Sodium (137-145) mmol/L Potassium (3.4-5.1) mmol/L Chloride (98-107) mmol/L Carbon Dioxide (22-32) mmol/L BUN (9-20) mg/dL Creatinine (0.66-1.25) mg/dL Estimated GFR (>60) mL/min BUN/Creatinine Ratio (6-22) Glucose (80-110) mg/dL Lactate (0.7-2.1) mmol/L Calcium (8.4-10.2) mg/dL Ferritin (18-464) ng/mL Total Bilirubin (0.2-1.3) mg/dL AST (17-59) IU/L ALT (<50) IU/L Alkaline Phosphatase (38-126) U/L Total Creatine Kinase (55-170) U/L CK-MB (CK-2) CK-MB (CK-2) Rel Index Troponin I (0.01-0.034) ng/mL C-Reactive Protein (<1.0) mg/dL NT-Pro-B Natriuret Pep (<125) pg/mL Total Protein (6.3-8.2) g/dL Albumin (3.5-5.0) g/dL Globulin (1.7-4.1) g/dL Albumin/Globulin Ratio (1.0-2.8) Procalcitonin (<0.5) ng/mL Urine RBC (0-5/HPF) Urine WBC (0-5/HPF) Ur Squamous Epith Cells (0-5/HPF) Urine Bacteria (None) Hyaline Casts (None) Urine Mucus (Negative) Ur Culture Indicated? COVID-19 PCR N 08/03/19 08/03/19 Range/Units 15:17 20:20 WBC (4.5-11.0) X10^3/uL RBC (4.5-5.9) X10^6/uL Hgb (13.5-17.5) g/dL Hct (41-53) % MCV (80-100) fL MCH (26-34) PG MCHC (30-36) % RDW (11.6-14.8) % Plt Count (150-400) X10^3/uL Neut % (Auto) (50-75) % Lymph % (Auto) (25-40) % [place] % (Auto) (3-14) % Eos % (Auto) (2-4) % Baso % (Auto) (0-2) % Neut # (Auto) (3399-3601) /uL Lymph # (Auto) (8297-4775) /uL [place] # (Auto) (0-900) /uL Eos # (Auto) (0-450) /uL Baso # (Auto) (0-100) /uL D-Dimer (<230) ng/mL ABG pH (7.35-7.45) ABG pCO2 (35-45) mmHg ABG pO2 (80-100) mmHg ABG HCO3 (22-26) mmol/L ABG Total CO2 (21-31) mmol/L ABG O2 Saturation (95-100) % ABG Base Excess (-2-2) mmol/L FiO2 Sodium (137-145) mmol/L Potassium (3.4-5.1) mmol/L Chloride (98-107) mmol/L Carbon Dioxide (22-32) mmol/L BUN (9-20) mg/dL Creatinine (0.66-1.25) mg/dL Estimated GFR (>60) mL/min BUN/Creatinine Ratio (6-22) Glucose (80-110) mg/dL Lactate (0.7-2.1) mmol/L Calcium (8.4-10.2) mg/dL Ferritin (18-464) ng/mL Total Bilirubin (0.2-1.3) mg/dL AST (17-59) IU/L ALT (<50) IU/L Alkaline Phosphatase (38-126) U/L Total Creatine Kinase (55-170) U/L CK-MB (CK-2) CK-MB (CK-2) Rel Index Troponin I (0.01-0.034) ng/mL C-Reactive Protein (<1.0) mg/dL NT-Pro-B Natriuret Pep (<125) pg/mL Total Protein (6.3-8.2) g/dL Albumin (3.5-5.0) g/dL Globulin (1.7-4.1) g/dL Albumin/Globulin Ratio (1.0-2.8) Procalcitonin < 0.05 (<0.5) ng/mL Urine RBC 0-1/hpf (0-5/HPF) Urine WBC 0-1/hpf (0-5/HPF) Ur Squamous Epith Cells 0-1 /hpf (0-5/HPF) Urine Bacteria None seen (None) Hyaline Casts 0-1/lpf (None) Urine Mucus 1+ H (Negative) Ur Culture Indicated? Cult not indicated COVID-19 PCR Urine Dip Bedside Urine Glucose Negative Bedside Urine Bilirubin - Negative Bedside Urine Ketone +++ 80 Urine Specific [place] 1.015 Bedside Urine Occult Blood +/- Bedside Urine pH 5.0 Bedside Urine Protein +/- 15 Bedside Urine Urobilinogen - Negative Bedside Urine Nitrite - Negative Bedside Urine Leukocytes - Negative Esterase ABG Data ABG results: The patient's blood gases revealed a pH is 7.369, a pCO2 of 51.0, a PO2 of 96 a bicarb of 29.4 and an O2 saturation 97%. It appears that the patient has a compensated respiratory acidosis. Sodium is 137 potassium 4.3 hematocrit 46% hemoglobin 15.6 on the arterial blood gases. Attestation: I personally reviewed and interpreted this ABG as follows: ECG Data Attestation: I personally reviewed and interpreted this ECG as follows: Interpretation: The patient's EKG obtained at 5:03 p.m. reveals a sinus tachy cardia with a ventricular rate of 114. The patient has diffuse low voltage. QRS is 86 milliseconds duration with a QTC of 381 and a normal axis. The patient has T-wave inversions in leads V1 with flat T-waves in lead V2 and nonspecific ST segment changes. There is no acute diagnostic ST segment change noted. <Gerardo Spain, DO - Last Filed: 08/04/19 00:12> Lab Data Labs: Lab Results 08/03/19 08/03/19 08/03/19 Range/Units 15:00 15:00 15:00 WBC 11.1 H (4.5-11.0) X10^3/uL RBC 5.15 (4.5-5.9) X10^6/uL Hgb 15.7 (13.5-17.5) g/dL Hct 47.3 (41-53) % MCV 91.8 (80-100) fL MCH 30.5 (26-34) PG MCHC 33.2 (30-36) % RDW 14.0 (11.6-14.8) % Plt Count 268 (150-400) X10^3/uL Neut % (Auto) 76.0 H (50-75) % Lymph % (Auto) 6.4 L (25-40) % [place] % (Auto) 10.8 (3-14) % Eos % (Auto) 6.4 H (2-4) % Baso % (Auto) 0.4 (0-2) % Neut # (Auto) 8400 H (6891-4812) /uL Lymph # (Auto) 700 L (8154-1710) /uL [place] # (Auto) 1200 H (0-900) /uL Eos # (Auto) 700 H (0-450) /uL Baso # (Auto) 0 (0-100) /uL D-Dimer (<230) ng/mL ABG pH (7.35-7.45) ABG pCO2 (35-45) mmHg ABG pO2 (80-100) mmHg ABG HCO3 (22-26) mmol/L ABG Total CO2 (21-31) mmol/L ABG O2 Saturation (95-100) % ABG Base Excess (-2-2) mmol/L FiO2 Sodium 139 (137-145) mmol/L Potassium 4.5 (3.4-5.1) mmol/L Chloride 102 (98-107) mmol/L Carbon Dioxide 29 (22-32) mmol/L BUN 10 (9-20) mg/dL Creatinine 0.60 L (0.66-1.25) mg/dL Estimated GFR > 60.0 (>60) mL/min BUN/Creatinine Ratio 16.7 (6-22) Glucose 121 H (80-110) mg/dL Lactate 1.2 (0.7-2.1) mmol/L Calcium 10.0 (8.4-10.2) mg/dL Ferritin 66 (18-464) ng/mL Total Bilirubin 0.7 (0.2-1.3) mg/dL AST 20 (17-59) IU/L ALT 12 (<50) IU/L Alkaline Phosphatase 69 (38-126) U/L Total Creatine Kinase 24 L (55-170) U/L CK-MB (CK-2) TNP CK-MB (CK-2) Rel Index TNP Troponin I < 0.012 (0.01-0.034) ng/mL C-Reactive Protein 5.3 H (<1.0) mg/dL NT-Pro-B Natriuret Pep 33 (<125) pg/mL Total Protein 8.1 (6.3-8.2) g/dL Albumin 4.4 (3.5-5.0) g/dL Globulin 3.7 (1.7-4.1) g/dL Albumin/Globulin Ratio 1.2 (1.0-2.8) Procalcitonin (<0.5) ng/mL Urine RBC (0-5/HPF) Urine WBC (0-5/HPF) Ur Squamous Epith Cells (0-5/HPF) Urine Bacteria (None) Hyaline Casts (None) Urine Mucus (Negative) Ur Culture Indicated? COVID-19 PCR 08/03/19 08/03/19 08/03/19 Range/Units 15:10 15:13 15:17 WBC (4.5-11.0) X10^3/uL RBC (4.5-5.9) X10^6/uL Hgb (13.5-17.5) g/dL Hct (41-53) % MCV (80-100) fL MCH (26-34) PG MCHC (30-36) % RDW (11.6-14.8) % Plt Count (150-400) X10^3/uL Neut % (Auto) (50-75) % Lymph % (Auto) (25-40) % [place] % (Auto) (3-14) % Eos % (Auto) (2-4) % Baso % (Auto) (0-2) % Neut # (Auto) (7312-4937) /uL Lymph # (Auto) (1497-0306) /uL [place] # (Auto) (0-900) /uL Eos # (Auto) (0-450) /uL Baso # (Auto) (0-100) /uL D-Dimer 2781 H (<230) ng/mL ABG pH 7.37 (7.35-7.45) ABG pCO2 51.0 H (35-45) mmHg ABG pO2 96 (80-100) mmHg ABG HCO3 29 H (22-26) mmol/L ABG Total CO2 31 (21-31) mmol/L ABG O2 Saturation 97 (95-100) % ABG Base Excess 4.0 H (-2-2) mmol/L FiO2 24 Sodium (137-145) mmol/L Potassium (3.4-5.1) mmol/L Chloride (98-107) mmol/L Carbon Dioxide (22-32) mmol/L BUN (9-20) mg/dL Creatinine (0.66-1.25) mg/dL Estimated GFR (>60) mL/min BUN/Creatinine Ratio (6-22) Glucose (80-110) mg/dL Lactate (0.7-2.1) mmol/L Calcium (8.4-10.2) mg/dL Ferritin (18-464) ng/mL Total Bilirubin (0.2-1.3) mg/dL AST (17-59) IU/L ALT (<50) IU/L Alkaline Phosphatase (38-126) U/L Total Creatine Kinase (55-170) U/L CK-MB (CK-2) CK-MB (CK-2) Rel Index Troponin I (0.01-0.034) ng/mL C-Reactive Protein (<1.0) mg/dL NT-Pro-B Natriuret Pep (<125) pg/mL Total Protein (6.3-8.2) g/dL Albumin (3.5-5.0) g/dL Globulin (1.7-4.1) g/dL Albumin/Globulin Ratio (1.0-2.8) Procalcitonin (<0.5) ng/mL Urine RBC (0-5/HPF) Urine WBC (0-5/HPF) Ur Squamous Epith Cells (0-5/HPF) Urine Bacteria (None) Hyaline Casts (None) Urine Mucus (Negative) Ur Culture Indicated? COVID-19 PCR N 08/03/19 08/03/19 Range/Units 15:17 20:20 WBC (4.5-11.0) X10^3/uL RBC (4.5-5.9) X10^6/uL Hgb (13.5-17.5) g/dL Hct (41-53) % MCV (80-100) fL MCH (26-34) PG MCHC (30-36) % RDW (11.6-14.8) % Plt Count (150-400) X10^3/uL Neut % (Auto) (50-75) % Lymph % (Auto) (25-40) % [place] % (Auto) (3-14) % Eos % (Auto) (2-4) % Baso % (Auto) (0-2) % Neut # (Auto) (6996-5040) /uL Lymph # (Auto) (4803-3813) /uL [place] # (Auto) (0-900) /uL Eos # (Auto) (0-450) /uL Baso # (Auto) (0-100) /uL D-Dimer (<230) ng/mL ABG pH (7.35-7.45) ABG pCO2 (35-45) mmHg ABG pO2 (80-100) mmHg ABG HCO3 (22-26) mmol/L ABG Total CO2 (21-31) mmol/L ABG O2 Saturation (95-100) % ABG Base Excess (-2-2) mmol/L FiO2 Sodium (137-145) mmol/L Potassium (3.4-5.1) mmol/L Chloride (98-107) mmol/L Carbon Dioxide (22-32) mmol/L BUN (9-20) mg/dL Creatinine (0.66-1.25) mg/dL Estimated GFR (>60) mL/min BUN/Creatinine Ratio (6-22) Glucose (80-110) mg/dL Lactate (0.7-2.1) mmol/L Calcium (8.4-10.2) mg/dL Ferritin (18-464) ng/mL Total Bilirubin (0.2-1.3) mg/dL AST (17-59) IU/L ALT (<50) IU/L Alkaline Phosphatase (38-126) U/L Total Creatine Kinase (55-170) U/L CK-MB (CK-2) CK-MB (CK-2) Rel Index Troponin I (0.01-0.034) ng/mL C-Reactive Protein (<1.0) mg/dL NT-Pro-B Natriuret Pep (<125) pg/mL Total Protein (6.3-8.2) g/dL Albumin (3.5-5.0) g/dL Globulin (1.7-4.1) g/dL Albumin/Globulin Ratio (1.0-2.8) Procalcitonin < 0.05 (<0.5) ng/mL Urine RBC 0-1/hpf (0-5/HPF) Urine WBC 0-1/hpf (0-5/HPF) Ur Squamous Epith Cells 0-1 /hpf (0-5/HPF) Urine Bacteria None seen (None) Hyaline Casts 0-1/lpf (None) Urine Mucus 1+ H (Negative) Ur Culture Indicated? Cult not indicated COVID-19 PCR Urine Dip Bedside Urine Glucose Negative Bedside Urine Bilirubin - Negative Bedside Urine Ketone +++ 80 Urine Specific [place] 1.015 Bedside Urine Occult Blood +/- Bedside Urine pH 5.0 Bedside Urine Protein +/- 15 Bedside Urine Urobilinogen - Negative Bedside Urine Nitrite - Negative Bedside Urine Leukocytes - Negative Esterase MDM Narrative Medical decision making narrative: Dr spain: Received turned over from Dr. sheth. Review patient's history and physical. Patient was being evaluated by Internal Medicine for potential admission at the time of my assumption of care. Concern from internal medicine was it was revealed that the patient has been worked up by the [facility] for some sort of mass in his throat and there was concerned that potentially this may be the cause of his issues. Plan was for Internal Medicine to consult with the [facility] to see what workup has been done with this potential mass and if there was any issues that this may be causing. After several hours of waiting there was no response from the [facility]. I went in and evaluated the patient. It has been approximately 2-1/2 hours since my assumption of the care. The patient required no further respiratory support. He was on 1 L of oxygen by nasal cannula which he states is baseline for him. He does have oxygen at home. Had a long discussion with him regarding the symptoms. We did discuss his CT scan. Informed him that an admission to our hospital here would be for respiratory support not for continued workup/definitive treatment of his neck mass. We discussed whether not he should be admitted versus being discharged home. Patient states that since that had been several hours since his last treatment here in the ER that he would rather go home. He does have nebulizers at home. He has oxygen at home. He was given antibiotics and steroids here in the emergency department. Will send home with antibiotics. Also send home with a prescription for steroids. He will contact the [facility] for follow-up. I do not feel the discharging him home is unreasonable and he is agreeable to this. His family is at bedside also agrees. He was given strict return precautions. Discharge Plan Departure Patient Disposition: Home Clinical Impression: COPD with acute exacerbation, Compensated respiratory acidosis Discharge Date/Time: 08/03/19 21:03 Instructions: Chronic Obstructive Pulmonary Disease Activity Restrictions/Additional Instructions: Start taking the antibiotics and the steroids your given a prescription for this evening as directed. Use your oxygen at home as needed. Use your nebulizer treatments at home as needed. Contact your primary provider for follow-up. Return to the emergency department for any new or worsening symptoms Prescriptions: New amoxicillin-pot clavulanate [Augmentin] 875-125 mg tablet 1 tab PO Q12H 10 Days Qty: 20 RF: 0 prednisone 20 mg tablet 20 mg PO DAILY Qty: 20 RF: 0 No Action albuterol sulfate [ProAir HFA] 90 mcg/actuation HFA aerosol inhaler 1 puff INHALATION Q4H PRN (Reason: shortness of breath) Qty: 18 RF: 5 albuterol sulfate 2.5 mg /3 mL (0.083 %) solution for nebulization 2.5 mg INHALATION Q4-6H PRN (Reason: shortness of breath or wheezing) Qty: 180 RF: 11 Spiriva Respimat 1.25 mcg/actuation mist 2 puff INHALATION Q12H RF: 0 sennosides [senna] 8.6 mg Tablet 8.6 mg PO BID PRN (Reason: Constipation) RF: 0 polyethylene glycol 3350 [Miralax] 17 gram Powder In Packet 1 dose PO PRN PRN (Reason: Constipation) RF: 0 Serrapeptase 1 dose PO PRN PRN (Reason: unknown) RF: 0 Referrals: Srini Fong MD [Primary Care Provider] -
[2019-08-03 15:37] LABS: Lactate (Lactic Acid) 1.2 mmol/L (0.7-2.1)
[2019-08-03 15:39] LABS: Alanine Aminotransferase 12 IU/L (<50); Albumin 4.4 g/dL (3.5-5.0); Albumin Globulin Ratio 1.2 (1.0-2.8); Alkaline Phosphatase 69 U/L (38-126); Aspartate Aminotransferase 20 IU/L (17-59); BUN Creatinine Ratio 16.7 (6-22); Bilirubin Total 0.7 mg/dL (0.2-1.3); Blood Urea Nitrogen 10 mg/dL (9-20); C-Reactive Protein Quant 5.3 mg/dL (<1.0); Carbon Dioxide 29 mmol/L (22-32); Chloride 102 mmol/L (98-107); Creatine Kinase 24 U/L (55-170); Estimated Glomerular Filt Rate > 60.0 mL/min (>60); Globulin 3.7 g/dL (1.7-4.1); Glucose 121 mg/dL (80-110); HEMOLYSIS < 15 (0-50); Potassium 4.5 mmol/L (3.4-5.1); Sodium 139 mmol/L (137-145); Total Protein 8.1 g/dL (6.3-8.2)
[2019-08-03 15:48] LABS: NT-proBNP (BNP-Adult 18+) 33 pg/mL (<125); Troponin I < 0.012 ng/mL (0.01-0.034)
[2019-08-03 16:06] LABS: Procalcitonin < 0.05 ng/mL (<0.5)
[2019-08-03 16:11] LABS: Ferritin 66 ng/mL (18-464)
[2019-08-03 16:11] LABS: D Dimer 2781 ng/mL (<230)
[2019-08-03] MEDS: ALBUTEROL 2.5 MG/3 ML NEB (ADULT) INH (16:18)
--- NOTE | 2019-08-03 16:35 | DI.CT.S_ITS ---
PROCEDURE: CT ANGIO CHEST PE PROTOCOL INDICATIONS: Short of breath, elevated dimer, COPD, TECHNIQUE: After the administration of intravenous contrast, 2 mm thick sections acquired from the pulmonary apices to the posterior costophrenic angles. 3-dimensional maximum intensity projection (MIP) coronal and sagittal reformats were then acquired through the thorax. For radiation dose reduction, the following was used: automated exposure control, adjustment of mA and/or kV according to patient size. COMPARISON: [facility], CT, CT CHEST WO CON, 05/20/2015, 8:04. [facility], CR, XR CHEST 1V, 05/13/2019, 9:26. [facility], CT, CT ANGIO CHEST PE PROTOCOL, 11/02/2017, 9:55. [facility], CR, XR CHEST 1V, 11/02/2017, 8:58. [facility], CT, CT ANGIO CHEST PE PROTOCOL, 05/13/2019, 11:19. FINDINGS: Image quality: Excellent. Pulmonary arteries: Pulmonary arteries are normal in size, and demonstrate no intraluminal filling defects to suggest central pulmonary embolism. Lungs and pleura: Profound bulla formation can be seen involving pulmonary apices. Mild emphysematous changes are seen elsewhere. Consolidative change can be seen involving right lower lobe with enhancement. No pleural effusions or pneumothorax. Central and peripheral airways are patent. Mediastinum: Heart size is normal, without pericardial effusion. No mediastinal or hilar adenopathy. Thoracic aorta is normal in caliber and enhancement. No significant aortic abnormality is seen. Esophagus is normal in caliber. There is a large hiatal hernia, which contains the majority of the stomach and prominent fat. Bones and chest wall: No suspicious bony lesions. Ribs and thoracic spine appear intact throughout. Age-appropriate bony degenerative changes are seen. Thyroid gland is small in size. No axillary or supraclavicular adenopathy. Abdomen: There is a simple cyst involving the medial central liver, as on series 6 image 77 measuring 1.5 centimeters. Generalized thickening is seen of the adrenal glands. The visualized portions of the upper abdominal structures are otherwise unremarkable for imaging technique. IMPRESSION: Negative for pulmonary embolism. Very large bulla formation can be seen involving pulmonary apices. Presumed enhancing atelectasis involving the right lower lobe. Incidental note is made of: Large hiatal hernia. Liver cysts Generalized thickening of the implant Dictated by: Delvis Alba M.D. on 08/03/2019 at 16:23 Approved by: Delvis Alba M.D. on 08/03/2019 at 16:28
[2019-08-03 16:51] LABS: pH ABG 7.37 (7.35-7.45)
[2019-08-03 16:52] LABS: Fractionated Inspired Oxygen 24; HCO3 ABG 29 mmol/L (22-26); Oxygen Saturation ABG 97 % (95-100); PO2 ABG 96 mmHg (80-100); TCO2 ABG 31 mmol/L (21-31)
[2019-08-03] MEDS: SODIUM CHLORIDE 0.9% 1,000 ML 1000 ML IV (18:30)
[2019-08-03] MEDS: VANCOMYCIN 1,000 MG/200 ML PIGGYBACK 200 MG IV (18:31)
--- NOTE | 2019-08-03 18:42 | PM.CN ---
History of Present Illness Consult details Date Patient Seen: 08/03/19 Time Patient Seen: 18:43 Chief complaint: SOB, crap in lungs Reason for consult: severe COPD Requesting provider: Linwood Barry Narrative: Renan Pollard is a 63 year old male with PMH of severe COPD on 2L home O2 who presented to the emergency room with shortness of breath. Patient was admitted back in May for a COPD exacerbation for which he improved fairly quickly. He felt better for a couple of days after discharge but then felt worse again. He followed up at [facility] in the beginning of June. At that visit he was given another course of steroids for 1-2 weeks, azithromycin, and Augmentin. He also said they did some imaging for a mass in his upper airway, but does not know the results of this imaging. While taking these medications he felt almost back to his usual baseline. Once he stopped Augmentin he seemed to be short of breath significantly because of the feeling of phlegm stuck in his throat. He was at a manageable symptom level while taking a Zithromax in 3 times weekly. They attempt to go up to 5 times per week but insurance did not cover this and he was out of medication for a week, this was 2 weeks ago. Since then his feeling of shortness of breath has been profoundly upper airway due to perceived mucous that he is unable to expectorate. He restarted azithromycin last week but this did not help much with his symptoms again. It is been worse over the past 2 days and he got so short of breath today that he decided to come to the emergency room. He denies any chest pain except with cough, and he does admit that he has been coughing so much that it is making his abdominal hernia larger. He denies any fevers chills, nausea, vomiting, abdominal pain other than from his hernia, hemoptysis, chest pain. In the emergency room, the patient initially presented in respiratory distress, tachypnea to 50s, tachycardic in the 110s, but normotensive and not hypoxemic. He has showed market improvement with Solu-Medrol, nebulizer therapy, cefepime, and vancomycin, 1 L fluid bolus, and magnesium. Upon my evaluation the patient appeared comfortable, somewhat short of breath when speaking prolonged sentences but seemingly near his baseline upon discharge during his last hospitalization. His ABG showed a pCO2 of 51, which was compensated with a normal pH. Labs showed a mild leukocytosis at 11.1, an elevated D-dimer to 2781, CRP of 5.3, negative procalcitonin, but were otherwise unremarkable. Troponin was negative. COVID-19 testing was sent. Medicine was asked to evaluate for admission. Given recent upper airway findings, am awaiting a call black from the [facility] regarding imaging studies performed there. He appears actually quite well currently and would prefer not to be admitted. Meds Home Medications and Allergies Home Medications Medication Instructions Recorded Confirmed Type Serrapeptase 1 dose PO PRN PRN 11/02/17 05/29/19 History polyethylene glycol 3350 [Miralax] 1 dose PO PRN PRN 11/02/17 05/29/19 History albuterol sulfate 90 mcg/actuation 1 puff INHALATION Q4H PRN #18 gram 04/30/19 05/29/19 Rx aerosol inhaler Spiriva Respimat 2 puff INHALATION Q12H 05/13/19 05/29/19 History sennosides [senna] 8.6 mg PO BID PRN 05/13/19 05/29/19 History albuterol sulfate 2.5 mg INHALATION Q4-6H PRN #180 ml 05/29/19 05/29/19 Rx amoxicillin-pot clavulanate 1 tab PO Q12H 10 Days #20 tab 08/03/19 Rx [Augmentin] prednisone 20 mg PO DAILY #20 tab 08/03/19 Rx Allergies Allergy/AdvReac Type Severity Reaction Status Date / Time No Known Drug Allergies Allergy Unverified 05/29/19 13:15 Review of Systems Review of Systems Narrative: All other systems reviewed with the patient and are negative unless otherwise stated. Exam Vital Signs (past 8 hours): - 08/03/19 14:55 08/03/19 15:00 08/03/19 15:15 Temperature 97.5 F L Pulse Rate 112 H 111 H 118 H Respiratory Rate 58 H 54 H 50 H Blood Pressure 137/92 H Blood Pressure [Left Arm] 137/92 H Pulse Oximetry 99 99 99 08/03/19 15:30 08/03/19 16:00 08/03/19 16:19 Temperature Pulse Rate 108 H 104 H 107 H Respiratory Rate 50 H 36 H Blood Pressure Blood Pressure [Left Arm] 106/68 114/79 Pulse Oximetry 97 97 08/03/19 16:30 08/03/19 17:00 08/03/19 18:00 Temperature Pulse Rate 114 H 113 H 110 H Respiratory Rate 32 H 50 H 32 H Blood Pressure Blood Pressure [Left Arm] 105/62 115/81 107/82 Pulse Oximetry 99 99 99 08/03/19 18:36 Temperature Pulse Rate 112 H Respiratory Rate 30 H Blood Pressure Blood Pressure [Left Arm] 125/84 Pulse Oximetry 96 Oxygen Delivery Method Nasal Cannula Oxygen Flow Rate 1 Narrative Exam Narrative: GENERAL APPEARANCE: Well developed, well nourished, in no acute distress. Gets short of breath after prolonged sentences. SKIN: Inspection of the skin reveals no rashes, ulcerations or petechiae. HEENT: The sclerae were anicteric and conjunctivae were pink and moist. Extraocular movements were intact and pupils were equal, round with normal accommodation. External inspection of the ears and nose showed no scars, lesions, or masses. Lips, teeth, and gums showed normal mucosa. The oral mucosa, hard and soft palate, tongue and posterior pharynx were unremarkable. NECK: Supple and symmetric. There was no thyroid enlargement, and no tenderness, or masses were felt. CHEST: Normal AP diameter and normal contour without any kyphoscoliosis. LUNGS: mild wheezes throughout, no rhonchi or rales bilaterally. CARDIOVASCULAR: There was a tachycardic rate and regular rhythm without any murmurs, gallops, rubs. Peripheral pulses were 2+ and symmetric. ABDOMEN: Soft and nontender with normal bowel sounds. No ascites was noted. Abdominal wall hernia evident on exam. MUSCULOSKELETAL: There was no tenderness or effusions noted. Muscle strength and tone were normal. EXTREMITIES: No cyanosis, clubbing or edema. NEUROLOGIC: Alert and oriented x 3. Normal affect. Gait was normal. Strength is +5/5 in the Upper Extremities and Lower Extremities Bilaterally. Sensation to touch was normal. Objective Labs Result Diagrams: 08/03/19 15:00 08/03/19 15:00 Labs: Laboratory Results - last 24 hr 08/03/19 08/03/19 08/03/19 15:00 15:00 15:00 WBC 11.1 H RBC 5.15 Hgb 15.7 Hct 47.3 MCV 91.8 MCH 30.5 MCHC 33.2 RDW 14.0 Plt Count 268 Neut % (Auto) 76.0 H Lymph % (Auto) 6.4 L Morgan % (Auto) 10.8 Eos % (Auto) 6.4 H Baso % (Auto) 0.4 Neut # (Auto) 8400 H Lymph # (Auto) 700 L Morgan # (Auto) 1200 H Eos # (Auto) 700 H Baso # (Auto) 0 D-Dimer ABG pH ABG pCO2 ABG pO2 ABG HCO3 ABG Total CO2 ABG O2 Saturation ABG Base Excess FiO2 Sodium 139 Potassium 4.5 Chloride 102 Carbon Dioxide 29 BUN 10 Creatinine 0.60 L Estimated GFR > 60.0 BUN/Creatinine Ratio 16.7 Glucose 121 H Lactate 1.2 Calcium 10.0 Ferritin 66 Total Bilirubin 0.7 AST 20 ALT 12 Alkaline Phosphatase 69 Total Creatine Kinase 24 L CK-MB (CK-2) TNP CK-MB (CK-2) Rel Index TNP Troponin I < 0.012 C-Reactive Protein 5.3 H NT-Pro-B Natriuret Pep 33 Total Protein 8.1 Albumin 4.4 Globulin 3.7 Albumin/Globulin Ratio 1.2 Procalcitonin 08/03/19 08/03/19 08/03/19 15:10 15:13 15:17 WBC RBC Hgb Hct MCV MCH MCHC RDW Plt Count Neut % (Auto) Lymph % (Auto) Morgan % (Auto) Eos % (Auto) Baso % (Auto) Neut # (Auto) Lymph # (Auto) Morgan # (Auto) Eos # (Auto) Baso # (Auto) D-Dimer 2781 H ABG pH 7.37 ABG pCO2 51.0 H ABG pO2 96 ABG HCO3 29 H ABG Total CO2 31 ABG O2 Saturation 97 ABG Base Excess 4.0 H FiO2 24 Sodium Potassium Chloride Carbon Dioxide BUN Creatinine Estimated GFR BUN/Creatinine Ratio Glucose Lactate Calcium Ferritin Total Bilirubin AST ALT Alkaline Phosphatase Total Creatine Kinase CK-MB (CK-2) CK-MB (CK-2) Rel Index Troponin I C-Reactive Protein NT-Pro-B Natriuret Pep Total Protein Albumin Globulin Albumin/Globulin Ratio Procalcitonin < 0.05 Assessment & Plan Assessment & Plan narrative: Renan Pollard is a 63 year old male with PMH of severe COPD on 2L home O2 who presented to the emergency room with shortness of breath. He appears very near his baseline as far as his shortness of breath after initial treatment in the emergency room. He was observed for close to two hours in the ER while awaiting a call back from transfer center for pulmonary consultation and the patient appeared near his baseline. Spoke with the night ER physician Dr. Spain and will discharge the patient home on augmentin, azithromycin, and two week prednisone taper. He will follow up with [facility] regarding possible mucolytic (acetylecysteine) and regarding recent possible neck mass that patient discussed with me. I called the transfer center and they were unfortunately unable to get in touch with pulmonary consultation due to a number of urgent transfers and they were unable to relay to me any neck imaging with nursing consultation prior to discharging the patient home. Given the patient was very near baseline I am in agreement that he can be discharged on the above plan as discussed.
[2019-08-03] MEDS: CEFEPIME 2 GM in SODIUM CHLORIDE 0.9% 100 ML 200 ML IV (19:38)
[2019-08-03 20:27] LABS: Bacteria Urine None Seen
[2019-08-03 20:34] LABS: RBC Urine 0-1/HPF (0-5/HPF); Squamous Epithelial Cell Urine 0-1 /HPF (0-5/HPF); WBC Urine 0-1/HPF (0-5/HPF)
[2019-08-03 20:35] LABS: Culture Indicated Urine Cult Not Indicated; Hyaline Casts Urine 0-1/LPF; Mucus Urine 1+ (Negative)
[2019-08-04 19:47] LABS: Acinetobacter baumannii Not Detected (Not Detect); Candida albicans Not Detected (Not Detect); Candida glabrata Not Detected (Not Detect); Candida krusei Not Detected (Not Detect); Candida parapsilosis Not Detected (Not Detect); Candida tropicalis Not Detected (Not Detect); E. coli Not Detected (Not Detect); Enterobacter cloacae complex Not Detected (Not Detect); Enterobacteriaceae species Not Detected (Not Detect); Enterococcus species Not Detected (Not Detect); Haemophilus influenzae Not Detected (Not Detect); KPC (carbapenem-resist gene) Not Detected (Not Detect); Listeria monocytogenes Not Detected (Not Detect); Methicillin-resistant gene Not Detected (Not Detect); Neisseria meningitidis Not Detected (Not Detect); Proteus species Not Detected (Not Detect); Pseudomonas aeruginosa Not Detected (Not Detect); Serratia marcescens Not Detected (Not Detect); Staphylococcus species Detected (Not Detect); Streptococcus agalactiae (Gr B Not Detected (Not Detect); Streptococcus pneumonia Not Detected (Not Detect); Streptococcus pyogenes (Gr A) Not Detected (Not Detect); Streptococcus species Not Detected (Not Detect)
[2019-08-05 09:31] LABS: COVID19 Sendout Not Detected
== END 2019-08-03 21:03 | disposition home or self-care (01) ==
PROVIDERS: Emergency Medicine; Emergency Provider Emergency Medicine; Family Provider Family Medicine; PCP Student in an Organized Health Care Education/Training Program
DX: J44.1 Chronic obstructive pulmonary disease with (acute) exacerbation (principal); E87.2 Acidosis
CPT/HCPCS: 36415; 36600; 71275; 80053; 81003; 81015; 82550; 82728; 82805; 83605; 83880; 84145; 84484; 85025; 85379; 86140; 87040; 87150; 87205; 87635; 93005; 93010; 94640; 96361; 96365; 96367; 96375; 99285; J0692; J2930; J7613; Q9967

== ENCOUNTER → 2020-04-28 14:54 | Outpatient (CLI) | payer OTHER, MEDICAID, SELFPAY ==
[2020-04-21 17:51] VITALS: BMI 28.3
--- NOTE | 2020-04-28 14:56 | DI.CT.S_ITS ---
PROCEDURE: CT ABDOMEN PELVIS WO CON INDICATIONS: Abdominal pain TECHNIQUE: Noncontrast 5 mm thick sections acquired from the diaphragms to the symphysis. 5 mm coronal and sagittal reformats were then performed. For radiation dose reduction, the following was used: automated exposure control, adjustment of mA and/or kV according to patient size. COMPARISON: [facility], CT, CT ANGIO CHEST PE PROTOCOL, 08/03/2019, 16:32. [facility], CT, CT ABDOMEN PELVIS WO CON, 10/13/2017, 11:17. FINDINGS: Image quality: Reduced quality of visualization given the absence of intravenous contrast.. ABDOMEN: Lung bases: A significant portion of the chest is included on this abdominal/pelvic CT. It again shows severe bullous emphysematous change at the lung bases, and also at the mid and upper lungs with resultant compression of portions of the lung parenchyma causing linear atelectasis. An area of previously present posterior right lower lobe alveolar infiltration seen 08/03/19 has mildly worsened, likely reflecting chronic pneumonia, without adjacent pleural effusion.. Solid organs: Liver is normal in size. Gallbladder appears normal where well seen. . Pancreas is normal in contours. Spleen is normal in size. No adrenal nodules. Kidneys are normal in size, without hydronephrosis or nephrolithiasis. Peritoneum and bowel: Unenhanced bowel loops demonstrate normal wall thickness and caliber. No free fluid or air. Nodes and vessels: No retroperitoneal or mesenteric adenopathy by size criteria. Aorta and inferior vena cava are normal in caliber. Miscellaneous: The previously present large ventral hernia over the lower abdomen/pelvis, right and left, shows no evidence of secondary bowel obstruction or bowel incarceration or strangulation. No free fluid within the area of herniation is present.. PELVIS: Genitourinary: Bladder wall thickness is normal. Miscellaneous: No inguinal hernias or adenopathy. Stable appearing large region of bilateral anterior body wall herniation of large and small bowel is again noted, without evidence of incarceration or strangulation. Bones: No suspicious bony lesions. No vertebral body compression fractures. IMPRESSION: A definite source of new abdominal pain is not identified. Previously documented large areas of right and left ventral body wall herniations of large and small bowel are again noted. There is no sign of incarceration or strangulation. No free fluid is seen. No bowel obstruction is found. Note is again made of severe bullous emphysema in this patient with what appears to be chronic and mildly worsened right lower lobe pneumonia. Please correlate for whether this finding could explain abdominal pain by referred pain from the chest into the abdomen. Dictated by: Thony Pizarro M.D. on 04/28/2020 at 16:47 Approved by: Thony Pizarro M.D. on 04/28/2020 at 16:52
[2020-04-28 16:25] LABS: Add Manual Diff / Slide Review NO; Basophils Absolute Auto 0 /uL (0-100); Basophils Percent Auto 0.4 % (0-2); Eosinophils Absolute Auto 100 /uL (0-450); Hematocrit 40.4 % (41-53); Hemoglobin 13.1 g/dL (13.5-17.5); Lymphocytes Absolute Auto 700 /uL (1100-4500); Lymphocytes Percent Auto 7.3 % (25-40); Mean Corpuscular HGB Conc 32.5 % (30-36); Mean Corpuscular Hemoglobin 27.3 PG (26-34); Mean Corpuscular Volume 83.9 fL (80-100); Monocytes Absolute Auto 1000 /uL (0-900); Monocytes Percent Auto 11.2 % (3-14); Neutrophils Absolute Auto 7200 /uL (1500-7000); Neutrophils Percent Auto 80.1 % (50-75); Platelet Count 344 X10^3/uL (150-400); Red Blood Cell Count 4.81 X10^6/uL (4.5-5.9); Red Cell Distribution Width 14.4 % (11.6-14.8)
[2020-04-28 16:41] LABS: Alanine Aminotransferase 10 IU/L (<50); Albumin 3.8 g/dL (3.5-5.0); Albumin Globulin Ratio 1.1 (1.0-2.8); Alkaline Phosphatase 70 U/L (38-126); Aspartate Aminotransferase 17 IU/L (17-59); BUN Creatinine Ratio 12.2 (6-22); Bilirubin Total 0.5 mg/dL (0.2-1.3); Blood Urea Nitrogen 9 mg/dL (9-20); Carbon Dioxide 29 mmol/L (22-32); Chloride 94 mmol/L (98-107); Estimated Glomerular Filt Rate > 60.0 mL/min (>60); Gamma Glutamyl Transpeptidase 26 U/L (15-73); Globulin 3.5 g/dL (1.7-4.1); Glucose 105 mg/dL (80-110); HEMOLYSIS < 15 (0-50); Lipase 172 U/L (23-300); Potassium 4.1 mmol/L (3.4-5.1); Sodium 132 mmol/L (137-145); Total Protein 7.3 g/dL (6.3-8.2)
[2020-04-28 16:48] LABS: Erythrocyte Sedimentation Rate 19 MM/HR (0-15)
[2020-04-28 16:56] LABS: C-Reactive Protein Quant 14.5 mg/dL (<1.0)
[2020-04-28 17:09] LABS: Prostate Specific Antigen Scrn 5.53 ng/mL (0.1-4.0)
[2020-04-28 17:18] LABS: Procalcitonin < 0.05 ng/mL (<0.5)
== END ==
PROVIDERS: Family Provider Family Medicine; PCP Student in an Organized Health Care Education/Training Program; Referring Provider Student in an Organized Health Care Education/Training Program; Visit Provider Student in an Organized Health Care Education/Training Program
DX: R10.9 Unspecified abdominal pain (principal); K43.2 Incisional hernia without obstruction or gangrene; J43.9 Emphysema, unspecified; Z12.5 Encounter for screening for malignant neoplasm of prostate
CPT/HCPCS: 36415; 74176; 80053; 82977; 83690; 84145; 85025; 85651; 86140; G0103

== ENCOUNTER → 2020-06-18 11:23 | Outpatient (CLI) | payer OTHER, MEDICAID, SELFPAY ==
[2020-04-21 17:51] VITALS: BMI 28.3
[2020-06-18 12:45] LABS: Prostate Specific Antigen 2.44 ng/mL (0.10-4.00)
== END ==
PROVIDERS: Family Provider Family Medicine; PCP Student in an Organized Health Care Education/Training Program; Referring Provider Student in an Organized Health Care Education/Training Program; Visit Provider Student in an Organized Health Care Education/Training Program
DX: R97.20 Elevated prostate specific antigen [PSA] (principal)
CPT/HCPCS: 36415; 84153

== ENCOUNTER → 2020-06-25 15:43 | Outpatient (CLI) | payer OTHER, MEDICAID, SELFPAY ==
[2020-04-21 17:51] VITALS: BMI 28.3
--- NOTE | 2020-06-25 16:35 | DI.CT.S_ITS ---
PROCEDURE: CT LUMBAR SPINE WO CON INDICATIONS: Low back pain, suspect bony mets TECHNIQUE: Noncontrast 3 mm thick sections acquired from the T12 level to the sacrum. Sagittal and coronal reformats were constructed. For radiation dose reduction, the following was used: automated exposure control. COMPARISON: [facility], CT, CT ABDOMEN PELVIS WO CON, 10/13/2017, 11:17. [facility], CT, CT ABDOMEN PELVIS WO CON, 04/28/2020, 15:44. [facility], CT, CT CHEST W CON, 06/25/2020, 16:57. FINDINGS: Image quality: There is mild motion artifact. Bones: Mild grade 1 anterolisthesis is demonstrated at L5-S1. There is a comminuted compression fracture of the L4 vertebral body with up to approximately 70% loss of height centrally. There is slight displacement of fracture fragments anteriorly with mild prevertebral soft tissue swelling. No retropulsed fragments in the spinal canal. There is nonspecific sclerosis within the L4 vertebral body. Elsewhere, no other definite suspicious bony lesions. There are bilateral pars defects at L5 with corticated margins. There are small disc bulges at L3-L4, L4-5, and L5-S1. There is associated mild spinal canal narrowing at L4-5 and L5-S1. Soft tissues: There is paravertebral soft tissue swelling or small hematoma at the level of L4. Visualized aorta is normal in caliber. The visualized abdomen demonstrates masslike enlargement of the right adrenal gland which appears progressively enlarged compared to prior studies. Postsurgical changes are demonstrated in the sigmoid colon. There is colonic diverticulosis. No intraperitoneal free fluid. The visualized right lung base demonstrates a region of masslike consolidation in the right lower lobe posteriorly. There is suggestion of chest wall invasion. Nodular thickening is demonstrated along the medial right pleura and diaphragmatic rhina. IMPRESSION: 1. Compression fracture of the L4 vertebral body as described without retropulsed bony fragments in the spinal canal. Sclerosis of the L4 vertebral body may reflect sequelae of the compression fracture but an underlying metastatic lesion cannot be excluded. 2. Elsewhere, no definite suspicious osseous lesions identified. 3. Masslike consolidation in the right posterior lower lobe partially visualized as described on the concurrent chest CT. There is suggestion of chest wall invasion and nodular pleural thickening. Findings likely represent a neoplasm and histologic diagnosis recommended. 4. Masslike enlargement of the right adrenal gland progressively increased from prior studies likely representing metastatic disease. Dictated by: Luis Fuller M.D. on 06/25/2020 at 18:19 Approved by: Luis Fuller M.D. on 06/25/2020 at 18:28
--- NOTE | 2020-06-25 16:35 | DI.CT.S_ITS ---
PROCEDURE: CT CHEST W CON INDICATIONS: Re-eval prior imaging of mediastinal mass and bullous COPD TECHNIQUE: After the administration of intravenous contrast, 5 mm thick sections acquired from the pulmonary apices to the posterior costophrenic angles. 1 mm axial lung, 5 mm thick coronal and sagittal reformats and 7 mm axial MIP were acquired. For radiation dose reduction, the following was used: automated exposure control, adjustment of mA and/or kV according to patient size. COMPARISON: [facility], CT, CT ANGIO CHEST PE PROTOCOL, 11/02/2017, 9:55. [facility], CT, CT ABDOMEN PELVIS WO CON, 04/28/2020, 15:44. [facility], CT, CT ANGIO CHEST PE PROTOCOL, 08/03/2019, 16:32. FINDINGS: Image quality: Excellent. Lungs and pleura: There are bilateral severe paraseptal emphysematous changes with large bullae in the lower lobes redemonstrated. Posteriorly within the right lower lobe, there is a region of masslike consolidation which appears progressively increased in size compared to the prior studies, now measuring up to approximately 7.4 x 3.9 cm in transverse dimension. There are hypoattenuating components centrally within this region suggestive of necrosis. Small internal foci of gas are also present which may reflect communication with the adjacent bullae or other fistula. This masslike region demonstrates extension posteriorly and medially suspicious for for chest wall invasion. No definite bony erosions of the adjacent ribs. There is a small right pleural effusion inferiorly with associated pleural thickening. There is linear atelectasis or scarring also demonstrated in the right lower and middle lobes. Mediastinum: Heart size is normal. No pericardial effusion. There is a lobulated right paratracheal mass redemonstrated in the superior mediastinum measuring approximately 3.2 x 1.5 cm. This appears similar in size compared to the prior study and decreased in size compared to the 11/02/2017 study. Otherwise, no mediastinal or hilar adenopathy by size criteria. Thoracic aorta and central pulmonary arteries are normal in size. Esophagus is normal in caliber. There is a large hiatal hernia redemonstrated. Bones and chest wall: No suspicious bony lesions. No vertebral body compression fractures. No axillary or supraclavicular adenopathy by size criteria. The right thyroid lobe extends posteriorly. Abdomen: Visualized upper abdomen demonstrates masslike enlargement which appears progressively increased compared to the prior studies. This measures up to approximately 3.1 x 1.7 cm in transverse dimension. Mild thickening of the left adrenal gland appears similar to the prior study. There is a cyst within the visualized liver. A small nonspecific hypodensity is demonstrated within the spleen measuring up to 0.7 cm. IMPRESSION: 1. Masslike consolidation within the right lower lobe appears progressively increased in size compared to the prior studies. There is suggestion of associated early chest wall invasion. The findings are suspicious for neoplasm and histologic diagnosis is recommended. 2. Right adrenal mass appears progressively enlarged compared to prior studies and is suspicious for metastatic disease. 3. Right paratracheal mass in the superior mediastinum contiguous with the posterior right thyroid lobe appears similar to the prior study and is progressively decreased in size compared to prior exams. 4. Large bilateral bullae redemonstrated. 5. Nonspecific small hypodensity in the spleen is nonspecific but appears new. Metastatic disease cannot be excluded and attention is recommended on follow-up. Dictated by: Luis Fuller M.D. on 06/25/2020 at 17:54 Approved by: Luis Fuller M.D. on 06/25/2020 at 18:18
[2020-06-25 16:36] LABS: BUN Creatinine Ratio 26.8 (6-22); Blood Urea Nitrogen 22 mg/dL (9-20); Estimated Glomerular Filt Rate > 60.0 mL/min (>60)
== END ==
PROVIDERS: Family Provider Family Medicine; PCP Student in an Organized Health Care Education/Training Program; Referring Provider Student in an Organized Health Care Education/Training Program; Visit Provider Student in an Organized Health Care Education/Training Program
DX: J98.59 Other diseases of mediastinum, not elsewhere classified (principal); N14.1 Nephropathy induced by other drugs, medicaments and biological substances; T50.8X5A Adverse effect of diagnostic agents, initial encounter; M54.5 Low back pain; J43.9 Emphysema, unspecified
CPT/HCPCS: 36415; 71260; 72131; 82565; 84520; Q9967

== ENCOUNTER 2020-07-17 07:43 | Inpatient (IN) | payer MEDICARE, MEDICAID, SELFPAY ==
[2020-04-21 17:51] VITALS: BMI 28.3
[2020-07-17] VITALS (44 sets, daily range): BP systolic 87–117; BP diastolic 54–83; PULSE 77–147; RESP 10–38; TEMP 35.9–37.1; O2SAT 90–100; BMI 20.9
--- NOTE | 2020-07-17 07:50 | ED.GENADULT ---
HPI - General Adult General Chief complaint: Shortness of Breath/Dyspnea Stated complaint: SOB since last evening, Asthma, COPD, Wheezing Time Seen by Provider: 07/17/20 07:48 Source: patient Mode of arrival: EMS Limitations: no limitations History of Present Illness HPI narrative: 64-year-old male with chronic lung disease. The stated history of asthma, COPD and bullous emphysema who was on 2 L of oxygen by nasal cannula at all times. Brought in by EMS for evaluation of shortness of breath. He did receive an albuterol inhaler and also a DuoNeb prior to arrival. EMS reports that the patient stated that he felt better afterwards. It is somewhat difficult to obtain HPI from the patient. He states that his issues today are because of ?silent reflux ?he states that he needs his inhaler for the ?silent reflux ?his daughters at bedside and states he was once provided with a medication that had the word ?acid? in it and he was confused by this because of his history of reflux social he does not take it. Unsure with this medication actually was or how long it has been since he has taken/not taken it. His daughter also states that a couple days ago he ran out of his rescue inhaler. Patient describes ?pain all over? Related Data Home Medications Medication Instructions Recorded Confirmed fluticasone propionate [Flovent 250 mcg INHALATION PRN PRN 07/17/20 07/17/20 Diskus] Previous Rx's Medication Instructions Recorded albuterol sulfate 2.5 mg INHALATION Q4-6H PRN #180 ml 05/29/19 acetylcysteine 100 mg/mL (10 %) 2 ml INHALATION Q4H #90 ml 09/10/19 solution albuterol sulfate 90 mcg/actuation 1 puff INHALATION Q4H PRN #18 gram 04/29/20 aerosol inhaler tiotropium bromide 1.25 2 puff INHALATION Q12H #4 g 04/29/20 mcg/actuation mist for inhalation oxycodone-acetaminophen 5 mg-325 1 tab PO Q8H PRN #42 tab 06/26/20 mg tablet Allergies Allergy/AdvReac Type Severity Reaction Status Date / Time Opioids - Morphine Analogues Allergy Verified 07/17/20 07:54 Review of Systems Constitutional Constitutional: Denies fatigue, Denies fever(s) and Denies headache(s) Eyes Eyes: Denies change in vision ENT Ears, Nose, Mouth, and Throat: Denies headache(s) Cardiovascular Cardiovascular: Reports chest pain and Reports dyspnea Respiratory Respiratory: Denies cough and Reports dyspnea Gastrointestinal Gastrointestinal: Reports abdominal pain, Denies nausea and Denies vomiting Genitourinary Genitourinary: Denies dysuria Genitourinary: Denies dysuria Musculoskeletal Musculoskeletal: Reports arthralgias and Denies myalgias Integumentary/Breasts Skin/Breast: Denies rash Neurologic Neurologic: Denies behavioral changes and Denies headache(s) Psychiatric Psychiatric: Denies anxiety and Denies behavioral changes Endocrine Endocrine: Denies fatigue Hematologic/Lymphatic On Anticoagulants: No Allergic/Immunologic Allergic/Immunologic: Denies urticaria Patient History Medical History COPD (chronic obstructive pulmonary disease) COPD exacerbation Hearing loss Hernia Recurrent sinusitis Restless leg syndrome Tinnitus Ventral incisional hernia without gangrene Surgical History Anesthesia H/O resection of large bowel History of colostomy reversal History of colostomy reversal History of resection of large bowel Family History Father History of heart disease Mother Cancer Sister Cancer Social History household members: none Smoking Status: Former smoker alcohol intake: never Smoking Status: Former smoker alcohol intake frequency: 0-2 drinks per day Substance Use Type: former substance user Exam Initial Vital Signs Initial Vital Signs: Vital Signs Pulse Rate 110 H 07/17/20 07:49 Respiratory Rate 21 07/17/20 07:49 Pulse Oximetry 90 L 07/17/20 07:49 Const General: ill appearing Limitations: mental status not altered HENMT Head: normal to inspection and normocephalic Eyes General: appearance normal, both eyes and all related structures Chest Other: Barrel chest Resp Effort & Inspection: no cough, labored, respiratory distress and tachypneic Auscultation: breath sounds absent on th left Cardio Rate: tachycardic Rhythm: regular rhythm GI Palpation: soft and No firm General: bladder normal to inspection Skin Lesions: no lesions Rashes: no rashes Neuro General: patient alert, patient awake and patient oriented x3 Cognition: normal cognition Speech: speech normal Extrem General: capillary refill normal and No edema Psych Appearance: grossly normal and well kempt Procedures Chest Tube Chest Tube 1: Chest Tube Location: left Size of Tube (cm): 20 Chest Tube Prep: Yes betadine prep and sterile drapes applied Local Anesthetic: lidocaine 1% Amount of anesthesia used (mL): 8 Incision Made With: #11 blade Post Procedure: sutured to skin and sterile dressing applied Tube Drainage: none Post Procedure CXR?: Yes Patient Tolerated Procedure: Yes Complications: other (None) Course Orders Ordered: ED Orders 07/17/20 08:19 COVID19 -Nasal swab/Pre-Proc Stat 07/17/20 08:32 XR chest 1V Stat 07/17/20 10:04 Consult to General Surgery Stat Acetaminophen (Acetaminophen 325 Mg Tablet) 650 mg PO Q6HR PRN PRN Reason: Fever/Mild Pain (1-3) Albuterol (Albuterol 2.5 Mg/3 Ml Neb (Adult)) 2.5 mg INH [id number] PRN PRN Reason: Shortness Of Breath Albuterol/Ipratropium (Albuterol/Ipratropium 3 Ml Ampul) 3 ml INH [id number] Last Admin: 07/17/20 12:17 Dose: 3 ml Documented by: RADHA Bisacodyl (Bisacodyl 10 Mg Supp) 10 mg CO DAILY PRN PRN Reason: Constipation Docusate Sodium (Docusate 100 Mg Capsule) 100 mg PO BID [facility] Sodium Chloride (Normal Saline 0.9%) 1,000 mls @ 125 mls/hr IV BOLUS ONE Stop: 07/17/20 17:22 Last Infusion: 07/17/20 11:03 Dose: 125 mls/hr Documented by: Admin: 07/17/20 09:28 Dose: 125 mls/hr Documented by: GALO Azithromycin 500 mg/ Dextrose 250 mls @ 250 mls/hr IV Q24H [facility] Stop: 07/19/20 23:59 Last Admin: 07/17/20 14:15 Dose: 250 mls/hr Documented by: CAROLYN Ceftriaxone Sodium/Dextrose (Rocephin) 1 gm in 50 mls @ 100 mls/hr IV Q24H [facility] Stop: 07/21/20 23:59 Last Admin: 07/17/20 16:43 Dose: 100 mls/hr Documented by: MARCOS Ibuprofen (Ibuprofen 600 Mg Tablet) 600 mg PO Q6HR PRN PRN Reason: Fever/Mild Pain (1-3) Naloxone HCl (Naloxone 0.4 Mg/Ml Vial) 0.2 mg IV Q2MIN PRN PRN Reason: Opiate Reversal Prednisone (Prednisone 20 Mg Tablet) 40 mg PO DAILY [facility] Last Admin: 07/17/20 16:43 Dose: 40 mg Documented by: MARCOS Sennosides (Sennosides 8.6 Mg Tablet) 17.2 mg PO BEDTIME [facility] Discontinued Medications Acetylcysteine (Acetylcysteine (Po/Inh) 200 Mg/Ml Vial) 200 mg INH NOW ONE Stop: 07/17/20 08:29 Last Admin: 07/17/20 09:24 Dose: 200 mg Documented by: GALO Albuterol/Ipratropium (Albuterol/Ipratropium 3 Ml Ampul) 3 ml INH NOW ONE Stop: 07/17/20 08:01 Last Admin: 07/17/20 08:14 Dose: 3 ml Documented by: SIMON Albuterol/Ipratropium (Albuterol/Ipratropium 3 Ml Ampul) 3 ml INH NOW ONE Stop: 07/17/20 08:01 Last Admin: 07/17/20 09:35 Dose: 3 ml Documented by: GALO Sodium Chloride (Normal Saline 0.9%) 500 mls @ 1,000 mls/hr IV BOLUS ONE Stop: 07/17/20 09:49 Last Infusion: 07/17/20 09:53 Dose: 1,000 mls/hr Documented by: Admin: 07/17/20 09:22 Dose: 1,000 mls/hr Documented by: GALO Ceftriaxone Sodium/Dextrose (Rocephin) 1 gm in 50 mls @ 100 mls/hr IV Q24H [facility] Stop: 07/21/20 23:59 Ketorolac Tromethamine (Ketorolac 60 Mg/2 Ml Vial) 30 mg IV NOW ONE Stop: 07/17/20 09:33 Last Admin: 07/17/20 09:34 Dose: 30 mg Documented by: GALO Lidocaine HCl (Lidocaine 1% 20 Ml) 1 ml SUBCUT NOW ONE Stop: 07/17/20 08:09 Last Admin: 07/17/20 09:20 Dose: Not Given Documented by: GALO Methylprednisolone (Methylprednisolone 125 Mg/2 Ml Vial) 125 mg IV NOW ONE Stop: 07/17/20 07:49 Last Admin: 07/17/20 08:07 Dose: 125 mg Documented by: DAVID Vital Signs Vital signs: Vital Signs - 8 hr 07/17/20 09:12 07/17/20 09:15 07/17/20 09:20 Pulse Rate 101 H 102 H 97 H Respiratory Rate 34 H 25 H 27 H Blood Pressure 102/70 Pulse Oximetry 96 97 98 07/17/20 09:25 07/17/20 09:30 07/17/20 09:35 Pulse Rate 101 H 120 H 100 H Respiratory Rate 36 H 24 26 H Blood Pressure Pulse Oximetry 97 97 97 07/17/20 09:40 07/17/20 09:45 07/17/20 09:50 Pulse Rate 112 H 101 H 99 H Respiratory Rate 36 H 22 26 H Blood Pressure 102/69 Pulse Oximetry 97 97 97 07/17/20 09:55 07/17/20 10:00 07/17/20 10:05 Pulse Rate 99 H 101 H 97 H Respiratory Rate 18 26 H 24 Blood Pressure 101/75 Pulse Oximetry 96 96 97 07/17/20 10:10 07/17/20 10:15 07/17/20 10:20 Pulse Rate 100 H 100 H 101 H Respiratory Rate 28 H 36 H 33 H Blood Pressure Pulse Oximetry 97 97 96 07/17/20 10:25 07/17/20 10:30 07/17/20 10:35 Pulse Rate 101 H 100 H 99 H Respiratory Rate 27 H 38 H 34 H Blood Pressure 100/72 Pulse Oximetry 96 95 95 07/17/20 10:40 07/17/20 10:45 Pulse Rate 101 H 109 H Respiratory Rate 29 H 34 H Blood Pressure Pulse Oximetry 97 96 Medical Decision Making Medical Records Medical records reviewed: Yes I reviewed the patient's medical records. Lab Data Lab results reviewed: Yes I reviewed the patient's lab results. Result diagrams: 07/17/20 08:07 07/17/20 08:07 Labs: Lab Results 07/17/20 07/17/20 07/17/20 Range/Units 07:54 08:07 08:07 WBC 16.7 H (4.5-11.0) X10^3/uL RBC 4.36 L (4.5-5.9) X10^6/uL Hgb 11.5 L (13.5-17.5) g/dL Hct 36.5 L (41-53) % MCV 83.6 (80-100) fL MCH 26.3 (26-34) PG MCHC 31.4 (30-36) % RDW 19.5 H (11.6-14.8) % Plt Count 558 H (150-400) X10^3/uL Neut % (Auto) 90.9 H (50-75) % Lymph % (Auto) 3.2 L (25-40) % [place] % (Auto) 5.4 (3-14) % Eos % (Auto) 0.0 L (2-4) % Baso % (Auto) 0.5 (0-2) % Neut # (Auto) 99646 H (3527-7271) /uL Lymph # (Auto) 500 L (7063-0841) /uL [place] # (Auto) 900 (0-900) /uL Eos # (Auto) 0 (0-450) /uL Baso # (Auto) 100 (0-100) /uL PT 16.5 H (10.1-12.7) SECONDS INR 1.4 H (0.9-1.3) APTT 35 (26.4-36.2) SECONDS Sodium (137-145) mmol/L Potassium (3.4-5.1) mmol/L Chloride (98-107) mmol/L Carbon Dioxide (22-32) mmol/L BUN (9-20) mg/dL Creatinine (0.66-1.25) mg/dL Estimated GFR (>60) mL/min BUN/Creatinine Ratio (6-22) Glucose (80-110) mg/dL Lactate (0.7-2.1) mmol/L Calcium (8.4-10.2) mg/dL Total Bilirubin (0.2-1.3) mg/dL AST (17-59) IU/L ALT (<50) IU/L Alkaline Phosphatase (38-126) U/L Total Creatine Kinase (55-170) U/L CK-MB (CK-2) CK-MB (CK-2) Rel Index Troponin I (0.01-0.034) ng/mL NT-Pro-B Natriuret Pep (<125) pg/mL Total Protein (6.3-8.2) g/dL Albumin (3.5-5.0) g/dL Globulin (1.7-4.1) g/dL Albumin/Globulin Ratio (1.0-2.8) Procalcitonin (<0.5) ng/mL SARS-CoV-2 (PCR) Negative (Negative) 07/17/20 07/17/20 07/17/20 Range/Units 08:07 08:07 08:07 WBC (4.5-11.0) X10^3/uL RBC (4.5-5.9) X10^6/uL Hgb (13.5-17.5) g/dL Hct (41-53) % MCV (80-100) fL MCH (26-34) PG MCHC (30-36) % RDW (11.6-14.8) % Plt Count (150-400) X10^3/uL Neut % (Auto) (50-75) % Lymph % (Auto) (25-40) % [place] % (Auto) (3-14) % Eos % (Auto) (2-4) % Baso % (Auto) (0-2) % Neut # (Auto) (2153-5109) /uL Lymph # (Auto) (7399-1116) /uL [place] # (Auto) (0-900) /uL Eos # (Auto) (0-450) /uL Baso # (Auto) (0-100) /uL PT (10.1-12.7) SECONDS INR (0.9-1.3) APTT (26.4-36.2) SECONDS Sodium 141 (137-145) mmol/L Potassium 4.6 (3.4-5.1) mmol/L Chloride 103 (98-107) mmol/L Carbon Dioxide 26 (22-32) mmol/L BUN 24 H (9-20) mg/dL Creatinine 0.71 (0.66-1.25) mg/dL Estimated GFR > 60.0 (>60) mL/min BUN/Creatinine Ratio 33.8 H (6-22) Glucose 159 H (80-110) mg/dL Lactate 2.3 H (0.7-2.1) mmol/L Calcium 10.8 H (8.4-10.2) mg/dL Total Bilirubin 0.2 (0.2-1.3) mg/dL AST 27 (17-59) IU/L ALT 13 (<50) IU/L Alkaline Phosphatase 128 H (38-126) U/L Total Creatine Kinase 27 L (55-170) U/L CK-MB (CK-2) TNP CK-MB (CK-2) Rel Index TNP Troponin I < 0.012 (0.01-0.034) ng/mL NT-Pro-B Natriuret Pep 406 H (<125) pg/mL Total Protein 8.1 (6.3-8.2) g/dL Albumin 3.7 (3.5-5.0) g/dL Globulin 4.4 H (1.7-4.1) g/dL Albumin/Globulin Ratio 0.8 L (1.0-2.8) Procalcitonin 0.34 (<0.5) ng/mL SARS-CoV-2 (PCR) (Negative) 07/17/20 Range/Units 08:19 WBC (4.5-11.0) X10^3/uL RBC (4.5-5.9) X10^6/uL Hgb (13.5-17.5) g/dL Hct (41-53) % MCV (80-100) fL MCH (26-34) PG MCHC (30-36) % RDW (11.6-14.8) % Plt Count (150-400) X10^3/uL Neut % (Auto) (50-75) % Lymph % (Auto) (25-40) % [place] % (Auto) (3-14) % Eos % (Auto) (2-4) % Baso % (Auto) (0-2) % Neut # (Auto) (5436-3462) /uL Lymph # (Auto) (3935-5154) /uL [place] # (Auto) (0-900) /uL Eos # (Auto) (0-450) /uL Baso # (Auto) (0-100) /uL PT (10.1-12.7) SECONDS INR (0.9-1.3) APTT (26.4-36.2) SECONDS Sodium (137-145) mmol/L Potassium (3.4-5.1) mmol/L Chloride (98-107) mmol/L Carbon Dioxide (22-32) mmol/L BUN (9-20) mg/dL Creatinine (0.66-1.25) mg/dL Estimated GFR (>60) mL/min BUN/Creatinine Ratio (6-22) Glucose (80-110) mg/dL Lactate (0.7-2.1) mmol/L Calcium (8.4-10.2) mg/dL Total Bilirubin (0.2-1.3) mg/dL AST (17-59) IU/L ALT (<50) IU/L Alkaline Phosphatase (38-126) U/L Total Creatine Kinase (55-170) U/L CK-MB (CK-2) CK-MB (CK-2) Rel Index Troponin I (0.01-0.034) ng/mL NT-Pro-B Natriuret Pep (<125) pg/mL Total Protein (6.3-8.2) g/dL Albumin (3.5-5.0) g/dL Globulin (1.7-4.1) g/dL Albumin/Globulin Ratio (1.0-2.8) Procalcitonin (<0.5) ng/mL SARS-CoV-2 (PCR) Negative (Negative) Imaging Data Chest x-ray: Radiologist's Impression: [address] [id number] ReportSigned Patient: Manny Pollard [facility]#: [id number]: 6Acct:[id number]/Sex: 64 / MDate of Service: 07/17/20Loc: EDAccession Number: [id number] Procedure: XR chest 1V Ordering Provider: Gerardo Spain D.O. PROCEDURE: XR CHEST 1V INDICATIONS: SOB TECHNIQUE: One view of the chest was acquired. COMPARISON: [facility], , XR CHEST 1V, 05/13/2019, 9:26. FINDINGS: Surgical changes and devices: None. Lungs and pleura: Severe bullous disease is again seen in both lobes with interval development of a large size left-sided pneumothorax. There is slight mediastinal shift to the right concerning for developing tension pneumothorax, suggest clinical correlation. No right-sided pneumothorax is seen. Mediastinum: Mediastinal contours appear normal. Heart size is normal. Bones and chest wall: No suspicious bony lesions. Overlying soft tissues appear unremarkable. IMPRESSION: Large left-sided pneumothorax likely from a ruptured bullae given patient's history of severe bullous disease. Mediastinal shift to the right is seen concerning for developing tension pneumothorax, suggest clinical correlation. Dictated by: Mike Crystal M.D. on 07/17/2020 at 8:21 Approved by: Mike Crystal M.D. on 07/17/2020 at 8:2 post chest tube: Radiologist's Impression: [facility] [place] [id number] ReportSigned Patient: Manny Pollard [facility]#: [id number]: 6Acct:[id number]/Sex: 64 / MDate of Service: 07/17/20Loc: EDAccession Number: [id number] Procedure: XR chest 1V Ordering Provider: Gerardo Spain D.O. PROCEDURE: XR CHEST 1V INDICATIONS: post chest tube placement TECHNIQUE: One view of the chest was acquired. COMPARISON: [facility], CT, CT CHEST W CON, 06/25/2020, 16:57. [facility], CR, XR CHEST 1V, 07/17/2020, 7:52. [facility], CR, XR CHEST 1V, 05/13/2019, 9:26. FINDINGS: Surgical changes and devices: Left lateral chest tube placed, Jaren spanning at least a portion of the left lung. Mild residual pneumothorax appears present laterally and superiorly.. Lungs and pleura: Lungs are abnormal with severe COPD and what appears to be some degree of bullous emphysema.. No pleural effusions or pneumothorax. Mediastinum: Mediastinal contours appear normal. Heart size is normal. Bones and chest wall: No suspicious bony lesions. Overlying soft tissues appear unremarkable. IMPRESSION: A large percentage of the left pneumothorax has been successfully treated with chest tube in place. A small degree of residual pneumothorax appears present laterally and superiorly on the left. Please also refer to prior CT scanning from mid June of this year documenting several large areas of bullous emphysema bilaterally. Improving pattern of right lower lobe pneumonia which previously was seen by CT scanning to be cavitary. Dictated by: Thony Pizarro M.D. on 07/17/2020 at 9:16 Approved by: Thony Pizarro M.D. on 07/17/2020 at 9:20 ECG Data Attestation: I personally reviewed and interpreted this ECG as follows: Prior ECG tracings: not available for review Interpretation: Sinus rhythm Ventricular rate 94 Normal axis Normal QRS Normal QTC No ST T wave changes MDM Narrative Medical decision making narrative: On the chest x-ray patient did have a left-sided pneumothorax. He initially was convinced that all he needed was his Mucomyst because this is what treated his ?silent reflux ?and that was what was going to make his symptoms better. I did inform him that it was because he had a collapsed lung on the left side most likely from a ruptured bulla that was causing his problems. He would not let me put in a chest tube until we gave him his Mucomyst nebulizer which we did give. During this nebulizers when we placed the chest tube. We did not have a Martín pneumothorax kit so a 20 [place] left-sided chest tube was placed without complication. This did improve his pneumothorax however did not completely resolve it. I did discuss the case with Internal Medicine at [facility] for potential transfers secondary to the potential need for pulmonology/cardiothoracic surgery however they did not think that given his acute status that cardiothoracic surgery would intervene. I then discussed the case with General surgery at this facility who agreed to manage the chest tube. Discussed the case with Internal Medicine who will admit for further evaluation and treatment. Discussed admission with the patient. He expressed understanding and agreement. Critical Care Time Critical Care Time Critical Care Time: Yes Total Critical Care Time: 35 Attestation: The high probability of a clinically significant, sudden or life threatening deterioration of the respiratory system(s) required my full and direct attention, intervention and personal management. The aggregate critical care time was 35 minutes. This time is in addition to time spent performing reported procedures but includes the following: [X] Data Review and interpretation [X] Patient assessment and monitoring of vital signs [X] Documentation [X] Medication orders and management Discharge Plan Departure Patient Disposition: Admitted As Inpatient Clinical Impression: COPD (chronic obstructive pulmonary disease), Pneumothorax, Acute respiratory distress Admit Date/Time: 07/17/20 10:45 Admit Provider: William Dong
[2020-07-17] MEDS: methylPREDNISolone 125 MG/2 ML VIAL IV (08:07)
[2020-07-17] MEDS: ALBUTEROL/IPRATROPIUM 3 ML AMPUL INH ×4 (08:14→20:15)
[2020-07-17 08:21] LABS: Add Manual Diff / Slide Review NO; Basophils Absolute Auto 100 /uL (0-100); Basophils Percent Auto 0.5 % (0-2); Eosinophils Absolute Auto 0 /uL (0-450); Hematocrit 36.5 % (41-53); Hemoglobin 11.5 g/dL (13.5-17.5); Lymphocytes Absolute Auto 500 /uL (1100-4500); Lymphocytes Percent Auto 3.2 % (25-40); Mean Corpuscular HGB Conc 31.4 % (30-36); Mean Corpuscular Hemoglobin 26.3 PG (26-34); Mean Corpuscular Volume 83.6 fL (80-100); Monocytes Absolute Auto 900 /uL (0-900); Monocytes Percent Auto 5.4 % (3-14); Neutrophils Absolute Auto 15200 /uL (1500-7000); Neutrophils Percent Auto 90.9 % (50-75); Platelet Count 558 X10^3/uL (150-400); Red Blood Cell Count 4.36 X10^6/uL (4.5-5.9); Red Cell Distribution Width 19.5 % (11.6-14.8); White Blood Cell Count 16.7 X10^3/uL (4.5-11.0)
[2020-07-17 08:28] LABS: INR 1.4 (0.9-1.3); Prothrombin Time 16.5 SECONDS (10.1-12.7)
[2020-07-17 08:31] LABS: PTT Partial Thromboplastin Tim 35 SECONDS (26.4-36.2)
--- NOTE | 2020-07-17 08:32 | DI.RAD.S_ITS ---
PROCEDURE: XR CHEST 1V INDICATIONS: post chest tube placement TECHNIQUE: One view of the chest was acquired. COMPARISON: [facility], CT, CT CHEST W CON, 06/25/2020, 16:57. [facility], CR, XR CHEST 1V, 07/17/2020, 7:52. [facility], CR, XR CHEST 1V, 05/13/2019, 9:26. FINDINGS: Surgical changes and devices: Left lateral chest tube placed, Jaren spanning at least a portion of the left lung. Mild residual pneumothorax appears present laterally and superiorly.. Lungs and pleura: Lungs are abnormal with severe COPD and what appears to be some degree of bullous emphysema.. No pleural effusions or pneumothorax. Mediastinum: Mediastinal contours appear normal. Heart size is normal. Bones and chest wall: No suspicious bony lesions. Overlying soft tissues appear unremarkable. IMPRESSION: A large percentage of the left pneumothorax has been successfully treated with chest tube in place. A small degree of residual pneumothorax appears present laterally and superiorly on the left. Please also refer to prior CT scanning from mid June of this year documenting several large areas of bullous emphysema bilaterally. Improving pattern of right lower lobe pneumonia which previously was seen by CT scanning to be cavitary. Dictated by: Thony Pizarro M.D. on 07/17/2020 at 9:16 Approved by: Thony Pizarro M.D. on 07/17/2020 at 9:20
[2020-07-17 08:37] LABS: COVID19 -Nasal RAPID Negative (Negative)
[2020-07-17 08:39] LABS: Alanine Aminotransferase 13 IU/L (<50); Albumin 3.7 g/dL (3.5-5.0); Albumin Globulin Ratio 0.8 (1.0-2.8); Alkaline Phosphatase 128 U/L (38-126); Aspartate Aminotransferase 27 IU/L (17-59); BUN Creatinine Ratio 33.8 (6-22); Bilirubin Total 0.2 mg/dL (0.2-1.3); Blood Urea Nitrogen 24 mg/dL (9-20); Calcium 10.8 mg/dL (8.4-10.2); Carbon Dioxide 26 mmol/L (22-32); Chloride 103 mmol/L (98-107); Creatine Kinase 27 U/L (55-170); Estimated Glomerular Filt Rate > 60.0 mL/min (>60); Globulin 4.4 g/dL (1.7-4.1); Glucose 159 mg/dL (80-110); HEMOLYSIS < 15 (0-50); Potassium 4.6 mmol/L (3.4-5.1); Sodium 141 mmol/L (137-145); Total Protein 8.1 g/dL (6.3-8.2)
[2020-07-17 08:41] LABS: Lactate (Lactic Acid) 2.3 mmol/L (0.7-2.1)
[2020-07-17 08:45] LABS: COVID19 - ADMIT (NP swab/PCR) Negative (Negative)
[2020-07-17 08:51] LABS: NT-proBNP (BNP-Adult 18+) 406 pg/mL (<125); Troponin I < 0.012 ng/mL (0.01-0.034)
[2020-07-17 08:57] LABS: Procalcitonin 0.34 ng/mL (<0.5)
[2020-07-17] MEDS: LIDOCAINE 1% (PF) 8 ML (09:19)
[2020-07-17] MEDS: SODIUM CHLORIDE 0.9% 500 ML 1000 ML IV (09:22)
[2020-07-17] MEDS: ACETYLCYSTEINE (PO/INH) 200 MG/ML VIAL INH (09:24)
[2020-07-17] MEDS: SODIUM CHLORIDE 0.9% 1,000 ML 125 ML IV (09:28)
[2020-07-17] MEDS: KETOROLAC 60 MG/2 ML VIAL 30 MG IV (09:34)
--- NOTE | 2020-07-17 09:57 | RT ---
Called to er6 for resp distress pt. Pt on o2 and neb tx started. Pt stated he needed his Mucomyst for his secretions in his throat. Pt transfered to room 2 for a chest tube placement. Xray showed a pneumo on the left. pt states hx of blebs
--- NOTE | 2020-07-17 10:05 | RT ---
pt given second duoneb with 20% Mucomyst 2 ml without incident. pt on 3 lpm nc
[2020-07-17 10:15] LABS: Reflexed Lactate in 2 Hours Y
--- NOTE | 2020-07-17 11:54 | PC.ADMIT ---
Addendum entered by Imelda Baum R.N. 07/17/20 16:02: Completed skin assessment and admission. Original Note: [email or web address] State RT 20 Trlr 73 Admission Note: The patient,Manny Pollard,64 y/o, was given written information regarding hospital policies, unit procedures and contact persons. Patient's smoking status: Former smoker. Arrived to room @ 1115, able to pivot stand and transfer to bed. Chest tube to L lateral chest intact and placed to low suction at wall. Pt is conversive and joking. Reports pain much improved with chest tube in place and ability to breathe significantly improved. Daughter at bedside. Vital Signs - 8 hr 07/17/20 07:49 07/17/20 07:51 07/17/20 08:00 Temperature 96.6 F L Pulse Rate 110 H 110 H 107 H Respiratory Rate 21 32 H 22 Blood Pressure 116/68 Pulse Oximetry 90 L 96 93 07/17/20 08:15 07/17/20 08:20 07/17/20 08:30 Temperature Pulse Rate 108 H 107 H 110 H Respiratory Rate 28 H 21 23 Blood Pressure 107/83 117/66 Pulse Oximetry 93 94 93 07/17/20 08:35 07/17/20 08:40 07/17/20 08:45 Temperature Pulse Rate 109 H 110 H 117 H Respiratory Rate 26 H 20 22 Blood Pressure 108/54 L Pulse Oximetry 92 95 95 07/17/20 08:50 07/17/20 08:55 07/17/20 09:00 Temperature Pulse Rate 115 H 107 H 104 H Respiratory Rate 21 24 10 L Blood Pressure Pulse Oximetry 94 97 95 07/17/20 09:02 07/17/20 09:05 07/17/20 09:08 Temperature Pulse Rate 102 H 102 H 108 H Respiratory Rate 29 H 38 H 37 H Blood Pressure 87/57 L 88/61 L Pulse Oximetry 95 96 96 07/17/20 09:10 07/17/20 09:12 07/17/20 09:15 Temperature Pulse Rate 147 H 101 H 102 H Respiratory Rate 32 H 34 H 25 H Blood Pressure 102/70 Pulse Oximetry 91 96 97 07/17/20 09:20 07/17/20 09:25 07/17/20 09:30 Temperature Pulse Rate 97 H 101 H 120 H Respiratory Rate 27 H 36 H 24 Blood Pressure Pulse Oximetry 98 97 97 07/17/20 09:35 07/17/20 09:40 07/17/20 09:45 Temperature Pulse Rate 100 H 112 H 101 H Respiratory Rate 26 H 36 H 22 Blood Pressure 102/69 Pulse Oximetry 97 97 97 07/17/20 09:50 07/17/20 09:55 07/17/20 10:00 Temperature Pulse Rate 99 H 99 H 101 H Respiratory Rate 26 H 18 26 H Blood Pressure 101/75 Pulse Oximetry 97 96 96 07/17/20 10:05 07/17/20 10:10 07/17/20 10:15 Temperature Pulse Rate 97 H 100 H 100 H Respiratory Rate 24 28 H 36 H Blood Pressure Pulse Oximetry 97 97 97 07/17/20 10:20 07/17/20 10:25 07/17/20 10:30 Temperature Pulse Rate 101 H 101 H 100 H Respiratory Rate 33 H 27 H 38 H Blood Pressure 100/72 Pulse Oximetry 96 96 95 07/17/20 10:35 07/17/20 10:40 07/17/20 10:45 Temperature Pulse Rate 99 H 101 H 109 H Respiratory Rate 34 H 29 H 34 H Blood Pressure Pulse Oximetry 95 97 96 07/17/20 10:50 Temperature Pulse Rate 98 H Respiratory Rate 25 H Blood Pressure Pulse Oximetry 97
--- NOTE | 2020-07-17 13:21 | P.HP_ITS ---
History of Present Illness History of Present Illness Chief complaint: SOB since last evening, Asthma, COPD, Wheezing Narrative: Mr. Pollard is a 64M with PMH of COPD on 2L O2 at home, ventral incisional hernia, history of resection of large bowel now s/p colostomy reversal, L4 compression fracture who comes into the hospital with sudden onset severe shortness of breath. He usually is quite short of breat at baseline, and has not been using his albuterol nebulizer recently due to shortness of breath limiting his ability to use his machine. He is also functionally limited by his abdominal discomfort as he has an incisional hernia after previous abdominal surgeries. He also has back pain with his L4 compression fracture. He does not take opioids because he develops significant constipation with even small doses. He is very discouraged with his quality of life. Today he had sudden onset shortness of breath and came to the emergency room. He had no chest pain, cough, fevers, or chills. In the ER, he was noted to be hypoxemic in the 80s with tachypnea. He was mildly tachycardic. Labs showed WBC 16.7 with a left shift, hemoglobin 11.5, platelets 558. Lactate 2.3 then 3.0. Calcium 10.8. COVID negative. Chest xray showed a large left pneumothorax from likely ruptured bullae with mediastinal shift. He h ad chest placed in ER with good improvement in his respiratory status. He was given a dose of methylprednisone. He was then started on ceftriaxone and azithromycin. And he was started on prednisone and albuterol. Patient History Medical History COPD (chronic obstructive pulmonary disease) COPD exacerbation Hearing loss Hernia Recurrent sinusitis Restless leg syndrome Tinnitus Ventral incisional hernia without gangrene Surgical History Anesthesia H/O resection of large bowel History of colostomy reversal History of colostomy reversal History of resection of large bowel Family & Social History Family History Father History of heart disease Mother Cancer Sister Cancer Social History: household members none Safety & Behavioral: Feels Safe in Current Yes Environment Been Physically Hurt or No Threatened By a Person Tobacco & Substance use: Smoking Status Former smoker alcohol intake never alcohol intake frequency 0-2 drinks per day Substance Use Type former substance user Meds Home Medications and Allergies Home Medications Medication Instructions Recorded Confirmed Type albuterol sulfate 2.5 mg INHALATION Q4-6H PRN #180 ml 05/29/19 07/17/20 Rx acetylcysteine 100 mg/mL (10 %) 2 ml INHALATION Q4H #90 ml 09/10/19 07/17/20 Rx solution albuterol sulfate 90 mcg/actuation 1 puff INHALATION Q4H PRN #18 gram 04/29/20 07/17/20 Rx aerosol inhaler tiotropium bromide 1.25 2 puff INHALATION Q12H #4 g 04/29/20 07/17/20 Rx mcg/actuation mist for inhalation oxycodone-acetaminophen 5 mg-325 1 tab PO Q8H PRN #42 tab 06/26/20 Rx mg tablet fluticasone propionate [Flovent 250 mcg INHALATION PRN PRN 07/17/20 07/17/20 History Diskus] Allergies Allergy/AdvReac Type Severity Reaction Status Date / Time Opioids - Morphine Analogues Allergy Verified 07/17/20 07:54 Review of Systems Review of Systems Narrative: Fourteen systems reviewed and were negative aside from what is noted in HPI Exam Vital Signs (past 8 hours): - 07/17/20 07:49 07/17/20 07:51 07/17/20 08:00 Temperature 96.6 F L Pulse Rate 110 H 110 H 107 H Respiratory Rate 21 32 H 22 Blood Pressure 116/68 Pulse Oximetry 90 L 96 93 07/17/20 08:15 07/17/20 08:20 07/17/20 08:30 Temperature Pulse Rate 108 H 107 H 110 H Respiratory Rate 28 H 21 23 Blood Pressure 107/83 117/66 Pulse Oximetry 93 94 93 07/17/20 08:35 07/17/20 08:40 07/17/20 08:45 Temperature Pulse Rate 109 H 110 H 117 H Respiratory Rate 26 H 20 22 Blood Pressure 108/54 L Pulse Oximetry 92 95 95 07/17/20 08:50 07/17/20 08:55 07/17/20 09:00 Temperature Pulse Rate 115 H 107 H 104 H Respiratory Rate 21 24 10 L Blood Pressure Pulse Oximetry 94 97 95 07/17/20 09:02 07/17/20 09:05 07/17/20 09:08 Temperature Pulse Rate 102 H 102 H 108 H Respiratory Rate 29 H 38 H 37 H Blood Pressure 87/57 L 88/61 L Pulse Oximetry 95 96 96 07/17/20 09:10 07/17/20 09:12 07/17/20 09:15 Temperature Pulse Rate 147 H 101 H 102 H Respiratory Rate 32 H 34 H 25 H Blood Pressure 102/70 Pulse Oximetry 91 96 97 07/17/20 09:20 07/17/20 09:25 07/17/20 09:30 Temperature Pulse Rate 97 H 101 H 120 H Respiratory Rate 27 H 36 H 24 Blood Pressure Pulse Oximetry 98 97 97 07/17/20 09:35 07/17/20 09:40 07/17/20 09:45 Temperature Pulse Rate 100 H 112 H 101 H Respiratory Rate 26 H 36 H 22 Blood Pressure 102/69 Pulse Oximetry 97 97 97 07/17/20 09:50 07/17/20 09:55 07/17/20 10:00 Temperature Pulse Rate 99 H 99 H 101 H Respiratory Rate 26 H 18 26 H Blood Pressure 101/75 Pulse Oximetry 97 96 96 07/17/20 10:05 07/17/20 10:10 07/17/20 10:15 Temperature Pulse Rate 97 H 100 H 100 H Respiratory Rate 24 28 H 36 H Blood Pressure Pulse Oximetry 97 97 97 07/17/20 10:20 07/17/20 10:25 07/17/20 10:30 Temperature Pulse Rate 101 H 101 H 100 H Respiratory Rate 33 H 27 H 38 H Blood Pressure 100/72 Pulse Oximetry 96 96 95 07/17/20 10:35 07/17/20 10:40 07/17/20 10:45 Temperature Pulse Rate 99 H 101 H 109 H Respiratory Rate 34 H 29 H 34 H Blood Pressure Pulse Oximetry 95 97 96 07/17/20 10:50 07/17/20 12:17 Temperature Pulse Rate 98 H 93 H Respiratory Rate 25 H 20 Blood Pressure Pulse Oximetry 97 94 Oxygen Delivery Method Nasal Cannula Oxygen Flow Rate 2 Narrative Exam Narrative: General: Chronically ill-appearing man in no acute distress HEENT: PERRL, moist mucous membranes Neck: Trachea midline, neck supple Cardiovascular: Regular rate and rhythm with no murmurs Chest: Has left-sided chest tube bandaged then clean dry and intact Pulmonary: Poor air movement bilaterally, mild scattered wheezes Abdomen: Ventral incisional hernia, right-sided tenderness, no rebounding or guarding, normal bowel sounds Extremities: Moving all extremities grossly to with no noted abnormalities Neuro: Cranial nerves 2-12 intact Psych: Frustrated with setback his medical care Objective Labs Result Diagrams: 07/17/20 08:07 07/17/20 08:07 Labs: Laboratory Results - last 24 hr 07/17/20 07/17/20 07/17/20 07:54 08:07 08:07 WBC 16.7 H RBC 4.36 L Hgb 11.5 L Hct 36.5 L MCV 83.6 MCH 26.3 MCHC 31.4 RDW 19.5 H Plt Count 558 H Neut % (Auto) 90.9 H Lymph % (Auto) 3.2 L [place] % (Auto) 5.4 Eos % (Auto) 0.0 L Baso % (Auto) 0.5 Neut # (Auto) 08511 H Lymph # (Auto) 500 L [place] # (Auto) 900 Eos # (Auto) 0 Baso # (Auto) 100 PT 16.5 H INR 1.4 H APTT 35 Sodium Potassium Chloride Carbon Dioxide BUN Creatinine Estimated GFR BUN/Creatinine Ratio Glucose Lactate Calcium Total Bilirubin AST ALT Alkaline Phosphatase Total Creatine Kinase CK-MB (CK-2) CK-MB (CK-2) Rel Index Troponin I NT-Pro-B Natriuret Pep Total Protein Albumin Globulin Albumin/Globulin Ratio Procalcitonin SARS-CoV-2 (PCR) Negative 07/17/20 07/17/20 07/17/20 08:07 08:07 08:07 WBC RBC Hgb Hct MCV MCH MCHC RDW Plt Count Neut % (Auto) Lymph % (Auto) [place] % (Auto) Eos % (Auto) Baso % (Auto) Neut # (Auto) Lymph # (Auto) [place] # (Auto) Eos # (Auto) Baso # (Auto) PT INR APTT Sodium 141 Potassium 4.6 Chloride 103 Carbon Dioxide 26 BUN 24 H Creatinine 0.71 Estimated GFR > 60.0 BUN/Creatinine Ratio 33.8 H Glucose 159 H Lactate 2.3 H Calcium 10.8 H Total Bilirubin 0.2 AST 27 ALT 13 Alkaline Phosphatase 128 H Total Creatine Kinase 27 L CK-MB (CK-2) TNP CK-MB (CK-2) Rel Index TNP Troponin I < 0.012 NT-Pro-B Natriuret Pep 406 H Total Protein 8.1 Albumin 3.7 Globulin 4.4 H Albumin/Globulin Ratio 0.8 L Procalcitonin 0.34 SARS-CoV-2 (PCR) 07/17/20 07/17/20 08:19 10:54 WBC RBC Hgb Hct MCV MCH MCHC RDW Plt Count Neut % (Auto) Lymph % (Auto) [place] % (Auto) Eos % (Auto) Baso % (Auto) Neut # (Auto) Lymph # (Auto) [place] # (Auto) Eos # (Auto) Baso # (Auto) PT INR APTT Sodium Potassium Chloride Carbon Dioxide BUN Creatinine Estimated GFR BUN/Creatinine Ratio Glucose Lactate 3.0 H Calcium Total Bilirubin AST ALT Alkaline Phosphatase Total Creatine Kinase CK-MB (CK-2) CK-MB (CK-2) Rel Index Troponin I NT-Pro-B Natriuret Pep Total Protein Albumin Globulin Albumin/Globulin Ratio Procalcitonin SARS-CoV-2 (PCR) Negative Assessment & Plan Assessment & Plan narrative: Mr. Pollard is a 64-year-old male with past medical history of COPD on home oxygen who presents with acute shortness of breath found to be in acute worsening respiratory failure secondary to pneumothorax from likely bleb rupture. 1. Pneumothorax with acute on chronic respiratory failure -required additional oxygen and was very tachypneic initially when he presented to the emergency room -chest tube in place with good improvement in his size of his pneumothorax on repeat imaging -repeat chest x-ray tomorrow -surgery consulted and will help manage with chest tube -will need had definitive management as an outpatient before to try to prevent recurrence with possible indication for pleurodesis 2 acute COPD exacerbation -has had progressively worsening shortness of breath with an inability to cough secondary to his abdominal pain -Possible etiology for his blood pressure at this time -Start him on DuoNebs prednisone ceftriaxone and azithromycin given questionable infiltrate on chest x-ray 3. Incisional ventral hernia -chronic issue patient is currently having only mild pain which is his baseline -Will order him to collapse and senna and possibly will need MiraLax to help prevent has chronic constipation 4. Anemia -only mild at this time continue to monitor with no need for transfusion at this time 5. Elevated lactate -Possibly in the setting of acute stress response and instability with the pneumothorax -will repeat another lactate to ensure that is Dr. indeed patient appears to be hemodynamically stable at this point may need some fluids just to help clear his lactate 6. Mildly elevated calcium -patient with a calcium of 10.8 currently appears to be asymptomatic -Will encourage good PO intake DVT ppx: lovenox Diet: Regular IVF: none Code status: DNR, confirmed with daughter proxy at bedside
[2020-07-17] MEDS: AZITHROMYCIN 500 MG in DEXTROSE 5% IN WATER 250 ML IV (14:15)
[2020-07-17] MEDS: predniSONE 20 MG TABLET 40 MG PO (16:43)
[2020-07-17] MEDS: CEFTRIAXONE 1 GM/50 ML FROZ.PIGGY IV (16:43)
--- NOTE | 2020-07-17 16:51 | DIET.PN ---
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 Pt has lost 21% of his body weight over the past 1y with 14% coming off unintentionally in past 10w (severe). Pt reports restricting PO intake secondary to his large ventral hernias and intestinal displacement but most recent weight loss not associated with this eating pattern. Pt monitors I&O to avoid getting constipated, pt has chronic pain but limits opioids to avoid constipation. Pt has no teeth so consumes soft diet. Pt has become severely weakened over the past several weeks, pt cannot walk 10 feet to bathroom, bear down for BM, and walk 10 feet back to bed without risk for falling. Pt reports having case of Ensure on the floor in his home but cannot drink them as too weak to open the box. Two days prior to hospitalization pt ate a 32oz can of peaches but nothing else. Pts hernias secondary to colostomy placement and revision, reports mesh tore when doing RT breathing exercises. Per PCP Hetal note, pt imaging shows masses in adrenal glands, lungs invading chest wall, and compression fractures of lumbar spine suspicious for metastatic disease. Pt NFPE shows severe muscle and fat wasting systemwide c BMI 20.9. HT: 180.3cm WT: 68kg (-14% in <3mo, severe) UBW: 90kg BMI: 20.9 (severe for age) Labs: WBC 16.7 H, lactate 3.0 H, Calcium 10.8 H, alk phos 128 H MNA: 5 malnourished Donald: 17 Nutrition Diagnosis: Severe Acute Protein Calorie Malnutrition r/t difficulty eating and possible metastatic process aeb 14% unintentional weight loss in <3 mo (severe), BMI 20.9 (severe for age), pts POs metting <50% EERx2w, NFPE showing severe muscle and fat wasting, imaging shows likely metastatic disease. Interventions: 1. 1/2 portions at meals please due to pts difficulty eating and worry regarding sizable ventral hernia. 2. Recc yogurt c fruit or yogurt and fruit smoothie c all meals to support nutrition status in addition to meal trays. Diet Order: General EER: 2,000 kcal (30kcal/kg per PCM), 88g PRO (1.3g/kg per PCM) Monitoring/Evaluations: weight, POs, ONS tolerance
--- NOTE | 2020-07-17 18:15 | P.CONS_ITS ---
History of Present Illness Consult details Date Patient Seen: 07/17/20 Time Patient Seen: 18:16 Chief complaint: SOB since last evening, Asthma, COPD, Wheezing Reason for consult: Lung collapse Requesting provider: Gerardo Spain Narrative: The patient is a gentleman who developed a spontaneous pneumothorax on the left and was acutely short of breath. He presented the emergency room where the emergency room physician placed a chest tube. I was asked to manage this tube. The patient is a former long-time smoker. It is very difficult to extract a history that is specific from him as he changes the subject frequently or avoids, perhaps unintentionally, a direct answer.. Meds Home Medications and Allergies Home Medications Medication Instructions Recorded Confirmed Type albuterol sulfate 2.5 mg INHALATION Q4-6H PRN #180 ml 05/29/19 07/17/20 Rx acetylcysteine 100 mg/mL (10 %) 2 ml INHALATION Q4H #90 ml 09/10/19 07/17/20 Rx solution albuterol sulfate 90 mcg/actuation 1 puff INHALATION Q4H PRN #18 gram 04/29/20 07/17/20 Rx aerosol inhaler tiotropium bromide 1.25 2 puff INHALATION Q12H #4 g 04/29/20 07/17/20 Rx mcg/actuation mist for inhalation oxycodone-acetaminophen 5 mg-325 1 tab PO Q8H PRN #42 tab 06/26/20 Rx mg tablet fluticasone propionate [Flovent 250 mcg INHALATION PRN PRN 07/17/20 07/17/20 History Diskus] Allergies Allergy/AdvReac Type Severity Reaction Status Date / Time Opioids - Morphine Analogues Allergy Verified 07/17/20 07:54 Review of Systems Review of Systems Narrative: Patient avoided answering whether he had a cough recently. Denies any heart problems or chest pain. No black or bloody bowel movements. He is at times continent of urine or stool. He does not always sense appropriately with whether he has to urinate or defecate. He has large hernias of his abdominal wall which caused him a great deal of pain if he lays on his right side left side or his stomach. He senses that his organs shift inside to moved to the side which is dependent. Exam Vital Signs (past 8 hours): - 07/17/20 10:20 07/17/20 10:25 07/17/20 10:30 Temperature Pulse Rate 101 H 101 H 100 H Respiratory Rate 33 H 27 H 38 H Blood Pressure 100/72 Pulse Oximetry 96 96 95 07/17/20 10:35 07/17/20 10:40 07/17/20 10:45 Temperature Pulse Rate 99 H 101 H 109 H Respiratory Rate 34 H 29 H 34 H Blood Pressure Pulse Oximetry 95 97 96 07/17/20 10:50 07/17/20 12:06 07/17/20 12:17 Temperature 98.0 F Pulse Rate 98 H 77 93 H Respiratory Rate 25 H 18 20 Blood Pressure 102/66 Pulse Oximetry 97 99 94 07/17/20 15:50 Temperature 98.8 F Pulse Rate 101 H Respiratory Rate 23 Blood Pressure 102/71 Pulse Oximetry 97 Oxygen Delivery Method Nasal Cannula Oxygen Flow Rate 2 Narrative Exam Narrative: Cooperative in no apparent distress. Decreased breath sounds bilaterally. Left is worse than right. Heart distant tones but seems to be regular rate and rhythm. I do not hear a murmur gallop. His abdomen is doughy soft with little muscle mass. He has fascial defects consistent with incisional hernias. One is in the left abdomen and 1 is in the mid abdomen. They are rath er large. Patient is alert and oriented x3. Speech rate and content are appropriate. There is no fluctuation in the fluid level of the chest tube and there is no air leak on wall suction. Objective Imaging CT scan - chest: My impression: Recent CT scan of the chest and x-rays of the chest today reveal evidence of severe bullous disease occupying about over half of the left chest and a significant portion of the right chest. There is some chronic shift of the mediastinal structures to the right. This is the largest bullae I believe I have ever seen on x-ray. Lung is mostly re-expanded presently on last x-ray. Labs Result Diagrams: 07/17/20 08:07 07/17/20 08:07 Labs: Laboratory Results - last 24 hr 07/17/20 07/17/20 07/17/20 07:54 08:07 08:07 WBC 16.7 H RBC 4.36 L Hgb 11.5 L Hct 36.5 L MCV 83.6 MCH 26.3 MCHC 31.4 RDW 19.5 H Plt Count 558 H Neut % (Auto) 90.9 H Lymph % (Auto) 3.2 L [place] % (Auto) 5.4 Eos % (Auto) 0.0 L Baso % (Auto) 0.5 Neut # (Auto) 19240 H Lymph # (Auto) 500 L [place] # (Auto) 900 Eos # (Auto) 0 Baso # (Auto) 100 PT 16.5 H INR 1.4 H APTT 35 Sodium Potassium Chloride Carbon Dioxide BUN Creatinine Estimated GFR BUN/Creatinine Ratio Glucose Lactate Calcium Total Bilirubin AST ALT Alkaline Phosphatase Total Creatine Kinase CK-MB (CK-2) CK-MB (CK-2) Rel Index Troponin I NT-Pro-B Natriuret Pep Total Protein Albumin Globulin Albumin/Globulin Ratio Procalcitonin SARS-CoV-2 (PCR) Negative 07/17/20 07/17/20 07/17/20 08:07 08:07 08:07 WBC RBC Hgb Hct MCV MCH MCHC RDW Plt Count Neut % (Auto) Lymph % (Auto) [place] % (Auto) Eos % (Auto) Baso % (Auto) Neut # (Auto) Lymph # (Auto) [place] # (Auto) Eos # (Auto) Baso # (Auto) PT INR APTT Sodium 141 Potassium 4.6 Chloride 103 Carbon Dioxide 26 BUN 24 H Creatinine 0.71 Estimated GFR > 60.0 BUN/Creatinine Ratio 33.8 H Glucose 159 H Lactate 2.3 H Calcium 10.8 H Total Bilirubin 0.2 AST 27 ALT 13 Alkaline Phosphatase 128 H Total Creatine Kinase 27 L CK-MB (CK-2) TNP CK-MB (CK-2) Rel Index TNP Troponin I < 0.012 NT-Pro-B Natriuret Pep 406 H Total Protein 8.1 Albumin 3.7 Globulin 4.4 H Albumin/Globulin Ratio 0.8 L Procalcitonin 0.34 SARS-CoV-2 (PCR) 07/17/20 07/17/20 08:19 10:54 WBC RBC Hgb Hct MCV MCH MCHC RDW Plt Count Neut % (Auto) Lymph % (Auto) [place] % (Auto) Eos % (Auto) Baso % (Auto) Neut # (Auto) Lymph # (Auto) [place] # (Auto) Eos # (Auto) Baso # (Auto) PT INR APTT Sodium Potassium Chloride Carbon Dioxide BUN Creatinine Estimated GFR BUN/Creatinine Ratio Glucose Lactate 3.0 H Calcium Total Bilirubin AST ALT Alkaline Phosphatase Total Creatine Kinase CK-MB (CK-2) CK-MB (CK-2) Rel Index Troponin I NT-Pro-B Natriuret Pep Total Protein Albumin Globulin Albumin/Globulin Ratio Procalcitonin SARS-CoV-2 (PCR) Negative Assessment & Plan Assessment & Plan narrative: Patient with large bullous disease with the spontaneous left pneumothorax. I am not certain what might be available treatment for this gentleman if he does not spontaneously seal the source of his pneumothorax. I explained to him that our plan is to observe him and do daily chest x-rays. If there is no air leak we would take him off suction and then if his lung stays up we would pull is tube. If he does not seal over. Of perhaps a week we would then we talking about transferring him to another facility with thoracic surgery available. I suspect if he does not seal he may need a major bleb resection which is far beyond what I would be willing to perform here. I am not even sure he would be a candidate for that.
[2020-07-17] MEDS: SODIUM CHLORIDE 0.9% 1,000 ML 100 ML IV (21:37)
[2020-07-17 21:52] LABS: Lactate (Lactic Acid) 2.1 mmol/L (0.7-2.1)
--- NOTE | 2020-07-17 22:17 | PC.NURSE ---
Shift Summary Received report from CAMACHO Segura. At shift change and until 1630, patient and daughter meeting with bog worker in the room. Patient stable, no apparent distress, vital signs stable. Sharon dry suction left chest tube hooked up to wall suction, 20mmHg. No output. No leak present. Tubing and system visually inspected. Dr. Joseph rounded at 1815, stated plan for pt if no leak overnight is to CXR in the morning and stop suction if appropriate. No new orders from . Around 193, pt had yet to void since arriving to unit at 1230, JEANNETTE Oneal notified. Orders placed for PRN bladder scan and in and out catheter for bladder scans >400mls. Bladder scan revealed 272 mLs in pt bladder. Within half an hour pt voided 300 mLs. Orders placed for a repeat lactate (2.1) and NS at 100mLs/hr.
[2020-07-17 23:39] LABS: Reflexed Lactate in 2 Hours Y
[2020-07-18] VITALS (9 sets, daily range): BP systolic 100–118; BP diastolic 60–73; PULSE 64–102; RESP 14–25; TEMP 36.3–36.7; O2SAT 96–98
--- NOTE | 2020-07-18 | DI.RAD.S_ITS ---
PROCEDURE: XR CHEST 1V INDICATIONS: monitor pneumo TECHNIQUE: One view of the chest was acquired. COMPARISON: [facility], CT, CT CHEST W CON, 06/25/2020, 16:57. [facility], CT, CT ANGIO CHEST PE PROTOCOL, 08/03/2019, 16:32. [facility], CR, XR CHEST 1V, 07/17/2020, 7:52. [facility], CR, XR CHEST 1V, 07/17/2020, 9:01. FINDINGS: Surgical changes and devices: A left-sided chest port is seen. Lungs and pleura: There is a large left-sided pneumothorax seen, which is similar in size to the prior examination. Mediastinum: Mediastinum is slightly shift to the right. Atelectasis can be seen involving the right lower lung, which is similar to the prior study. A small right-sided pleural effusion is seen. There is continued masslike density seen at the right lung base. Bones and chest wall: No suspicious bony lesions. Overlying soft tissues appear unremarkable. IMPRESSION: Continued large left-sided pneumothorax, with a left-sided chest tube in place. There is mild shift of the mediastinum to the right. A small right-sided pleural effusion is seen. Developing right-sided atelectasis can be seen. Dictated by: Delvis Alba M.D. on 07/18/2020 at 7:52 Approved by: Delvis Alba M.D. on 07/18/2020 at 7:54
--- NOTE | 2020-07-18 00:22 | PC.NURSE ---
0015- lactate not sent unable to draw from antecube IV.
[2020-07-18] MEDS: IBUPROFEN 600 MG TABLET PO ×3 (02:13→19:29)
[2020-07-18 06:04] LABS: Hematocrit 29.1 % (41-53); Hemoglobin 9.5 g/dL (13.5-17.5); Mean Corpuscular HGB Conc 32.6 % (30-36); Mean Corpuscular Hemoglobin 26.9 PG (26-34); Mean Corpuscular Volume 82.6 fL (80-100); Platelet Count 341 X10^3/uL (150-400); Red Blood Cell Count 3.53 X10^6/uL (4.5-5.9); Red Cell Distribution Width 19.5 % (11.6-14.8); White Blood Cell Count 12.6 X10^3/uL (4.5-11.0)
[2020-07-18 06:05] LABS: Add Manual Diff / Slide Review YES
[2020-07-18 06:09] LABS: BUN Creatinine Ratio 37.9 (6-22); Blood Urea Nitrogen 22 mg/dL (9-20); Calcium 9.7 mg/dL (8.4-10.2); Carbon Dioxide 25 mmol/L (22-32); Chloride 107 mmol/L (98-107); Estimated Glomerular Filt Rate > 60.0 mL/min (>60); Glucose 125 mg/dL (80-110); HEMOLYSIS < 15 (0-50); Potassium 3.9 mmol/L (3.4-5.1); Sodium 139 mmol/L (137-145)
[2020-07-18 08:16] LABS: Neutrophils Absolute Manual 11970 /uL (3000-5900); Total Cells Counted 100
[2020-07-18 08:17] LABS: Hypochromasia 1+; Platelet Estimate Adequate on smear; Polychromasia 1+
[2020-07-18 08:19] LABS: Toxic Vacuolation Present
[2020-07-18] MEDS: SODIUM CHLORIDE 0.9% 1,000 ML 75 ML IV ×2 (08:35→23:14)
[2020-07-18] MEDS: predniSONE 20 MG TABLET 40 MG PO (08:35)
[2020-07-18] MEDS: ALBUTEROL/IPRATROPIUM 3 ML AMPUL INH ×3 (08:47→18:43)
--- NOTE | 2020-07-18 10:20 | P.PN_ITS ---
Subjective Subjective Date Patient Seen: 07/18/20 Time Patient Seen: 10:20 Interval history: Patient with a chest tube. He is breathing comfortably for him. No chest pain or unusual shortness of breath. Exam Vital Signs (past 8 hours): - 07/18/20 05:25 07/18/20 08:47 07/18/20 09:00 Temperature 97.5 F L 98.0 F Pulse Rate 77 82 64 Respiratory Rate 18 20 14 Blood Pressure 100/65 103/60 Pulse Oximetry 98 97 98 Oxygen Delivery Method Nasal Cannula Oxygen Flow Rate 2 Narrative Exam Narrative: Very little anterior upper lung breath sounds on either side. Lateral posterior I do hear air movement that is approximately equal. Chest tube intact. No air leak. Tube not fluctuating. System seems to be intact. Objective Imaging Chest x-ray: My impression: Based on clinical findings at the bedside and review of the x-ray I believe the lung is actually expanded. He has a very large bleb that makes it impossible to see a pleural line with any reliability. I spoke with the radiologist and he will make an addendum to the report. Labs Result Diagrams: 07/18/20 05:30 07/18/20 05:30 Labs: Laboratory Results - last 24 hr 07/17/20 07/17/20 07/18/20 10:54 21:05 05:30 WBC RBC Hgb Hct MCV MCH MCHC RDW Plt Count Neut % (Auto) Lymph % (Auto) [place] % (Auto) Eos % (Auto) Baso % (Auto) Lymph # (Auto) [place] # (Auto) Baso # (Auto) Total Counted Seg Neutrophils % Band Neutrophils % Lymphocytes % (Manual) Monocytes % (Manual) Neutrophils # (Manual) Toxic Vacuolation Platelet Estimate RBC Morphology Polychromasia Hypochromasia Sodium Potassium Chloride Carbon Dioxide BUN Creatinine Estimated GFR BUN/Creatinine Ratio Glucose Lactate 3.0 H 2.1 1.0 Calcium 07/18/20 07/18/20 05:30 05:30 WBC 12.6 H RBC 3.53 L Hgb 9.5 L Hct 29.1 L MCV 82.6 MCH 26.9 MCHC 32.6 RDW 19.5 H Plt Count 341 Neut % (Auto) Not Reportable Lymph % (Auto) Not Reportable [place] % (Auto) Not Reportable Eos % (Auto) Not Reportable Baso % (Auto) Not Reportable Lymph # (Auto) Not Reportable [place] # (Auto) Not Reportable Baso # (Auto) Not Reportable Total Counted 100 Seg Neutrophils % 90.0 H Band Neutrophils % 5.0 Lymphocytes % (Manual) 1.0 L Monocytes % (Manual) 4.0 Neutrophils # (Manual) 84780 H Toxic Vacuolation Present H Platelet Estimate Adequate on smear RBC Morphology See below Polychromasia 1+ H Hypochromasia 1+ H Sodium 139 Potassium 3.9 Chloride 107 Carbon Dioxide 25 BUN 22 H Creatinine 0.58 L Estimated GFR > 60.0 BUN/Creatinine Ratio 37.9 H Glucose 125 H Lactate Calcium 9.7 PFSH Medical History COPD (chronic obstructive pulmonary disease) COPD exacerbation Hearing loss Hernia Recurrent sinusitis Restless leg syndrome Tinnitus Ventral incisional hernia without gangrene Surgical History Anesthesia H/O resection of large bowel History of colostomy reversal History of colostomy reversal History of resection of large bowel Family History Father History of heart disease Mother Cancer Sister Cancer Social History household members: none Smoking Status: Former smoker alcohol intake: never Assessment & Plan Assessment & Plan narrative: I believe the patient's lung has sealed actually and the pneumothorax has resolved despite the trauma director report which is being addended.. I have disconnected him from suction and will repeat an x-ray in the morning. If the lung has not developed collapse I would then clamp the tube in observe him for an additional period of time to make sure he does not have a very slow leak. Quality VTE Deep Vein Thrombosis/Pulmonary Embolism Present on Admission: No
--- NOTE | 2020-07-18 12:00 | CM.DANOTE ---
DCP: Case received, EMR reviewed and met with patient. Introduced self and role. Was able to obtain information from patient regarding his baseline activity prior to hospitalization, as well as his current living situation. DCP assessment completed with information currently available. Patient is a 64 year old male who admitted yesterday morning to the care of the hospital team. PCP: Dr. Fong. Payer: confirmed: Medicare/Medicare. Patient came to the hospital via ambulance secondary to dyspnea, shortness of breath. Patient has history of chroic lung disease, and is on 2 liters of oxygen at home per his baseline. Patient was diagnosed with left sided pneumothorax, secondary to ruptured bullae. He currently has a chest tube. Patient has history of asthma as well, and also, macular degeneration, as well as L4 compression fracture. Met with patient in his room. He is alert and oriented. Confirmed that he resides with a room mate, who is his [id number]. Patient stated, he really doesn't have a lot of common sense. His daughter, Gary, lives next door. Patient no longer drives. Stated, he is not very mobile, due to the disc problems in his back. He resides in a mobile home, stated, it's not wide enough for a walker. He has his home oxygen. Stated, his room mate is supposed to help with meals, but does not offer healthy choices. Asked him about meals on wheels, patient indicated. I'm picky about my food, so that doesn't work for me. Asked patient if he ever had home health before, or if he was interested. Stated, he may consider. He mentioned that he had applied for [facility] at one time, and they are supposed to do another assessment at the end of the month. Patient relies on his room mate or daughter to get groceries or take him to appointments, due to his macular degeneration and back problems that do not allow him to drive. P: DCP to continue to follow. He currently has no P.T. orders as of yet. Will follow up again with patient to see if home health could be an option at discharge. Denise Ruelas RN/Dental Practice Manager
[2020-07-18] MEDS: AZITHROMYCIN 500 MG in DEXTROSE 5% IN WATER 250 ML IV (12:17)
--- NOTE | 2020-07-18 13:45 | P.PN_ITS ---
Subjective Subjective Interval history: Today his breathing still feels good. Chest tube with good seal, just turned off to suction. Exam Vital Signs (past 8 hours): - 07/18/20 08:47 07/18/20 09:00 07/18/20 13:00 Temperature 98.0 F 97.3 F L Pulse Rate 82 64 78 Respiratory Rate 20 14 14 Blood Pressure 103/60 108/71 Pulse Oximetry 97 98 98 07/18/20 13:26 Temperature Pulse Rate 84 Respiratory Rate 22 Blood Pressure Pulse Oximetry 98 Oxygen Delivery Method Nasal Cannula Oxygen Flow Rate 2 Narrative Exam Narrative: General: Chronically ill-appearing man in no acute distress HEENT: PERRL, moist mucous membranes Neck: Trachea midline, neck supple Cardiovascular: Regular rate and rhythm with no murmurs Chest: Has left-sided chest tube bandaged then clean dry and intact Pulmonary: clear bilaterally, decreased breath sounds Abdomen: Ventral incisional hernia, right-sided tenderness, no rebounding or guarding, normal bowel sounds Extremities: Moving all extremities grossly to with no noted abnormalities Neuro: Cranial nerves 2-12 intact Psych: pleasant mood Objective Labs Result Diagrams: 07/18/20 05:30 07/18/20 05:30 Labs: Laboratory Results - last 24 hr 07/17/20 07/18/20 07/18/20 21:05 05:30 05:30 WBC 12.6 H RBC 3.53 L Hgb 9.5 L Hct 29.1 L MCV 82.6 MCH 26.9 MCHC 32.6 RDW 19.5 H Plt Count 341 Neut % (Auto) Not Reportable Lymph % (Auto) Not Reportable [place] % (Auto) Not Reportable Eos % (Auto) Not Reportable Baso % (Auto) Not Reportable Lymph # (Auto) Not Reportable [place] # (Auto) Not Reportable Baso # (Auto) Not Reportable Total Counted 100 Seg Neutrophils % 90.0 H Band Neutrophils % 5.0 Lymphocytes % (Manual) 1.0 L Monocytes % (Manual) 4.0 Neutrophils # (Manual) 85692 H Toxic Vacuolation Present H Platelet Estimate Adequate on smear RBC Morphology See below Polychromasia 1+ H Hypochromasia 1+ H Sodium Potassium Chloride Carbon Dioxide BUN Creatinine Estimated GFR BUN/Creatinine Ratio Glucose Lactate 2.1 1.0 Calcium 07/18/20 05:30 WBC RBC Hgb Hct MCV MCH MCHC RDW Plt Count Neut % (Auto) Lymph % (Auto) [place] % (Auto) Eos % (Auto) Baso % (Auto) Lymph # (Auto) [place] # (Auto) Baso # (Auto) Total Counted Seg Neutrophils % Band Neutrophils % Lymphocytes % (Manual) Monocytes % (Manual) Neutrophils # (Manual) Toxic Vacuolation Platelet Estimate RBC Morphology Polychromasia Hypochromasia Sodium 139 Potassium 3.9 Chloride 107 Carbon Dioxide 25 BUN 22 H Creatinine 0.58 L Estimated GFR > 60.0 BUN/Creatinine Ratio 37.9 H Glucose 125 H Lactate Calcium 9.7 PFSH Medical History COPD (chronic obstructive pulmonary disease) COPD exacerbation Hearing loss Hernia Recurrent sinusitis Restless leg syndrome Tinnitus Ventral incisional hernia without gangrene Surgical History Anesthesia H/O resection of large bowel History of colostomy reversal History of colostomy reversal History of resection of large bowel Family History Father History of heart disease Mother Cancer Sister Cancer Social History household members: none Smoking Status: Former smoker alcohol intake: never Assessment & Plan Assessment & Plan narrative: Mr. Pollard is a 64-year-old male with past medical history of COPD on home oxygen who presents with acute shortness of breath found to be in acute worsening respiratory failure secondary to pneumothorax from likely bleb rupture. 1. Pneumothorax with acute on chronic respiratory failure -required additional oxygen and was very tachypneic initially when he presented to the emergency room -chest tube in place with good seal, suction now off -repeat chest x-ray tomorrow -surgery consulted and will help manage with chest tube 2 acute COPD exacerbation -has had progressively worsening shortness of breath with an inability to cough secondary to his abdominal pain -Start him on DuoNebs prednisone ceftriaxone and azithromycin given questionable infiltrate on chest x-ray 3. Incisional ventral hernia -chronic issue patient is currently having only mild pain which is his baseline -Will order dulcolax and senna and possibly will need MiraLax to help prevent sanders s chronic constipation 4. Anemia -only mild at this time continue to monitor with no need for transfusion at this time 5. Elevated lactate -Possibly in the setting of acute stress response and instability with the pneumothorax -improved this AM, patient stable, no need to trend further 6. Mildly elevated calcium -patient with a calcium of 10.8 on admissiion improved to 9.7 and currently asymptomatic -Will encourage good PO intake Quality VTE Deep Vein Thrombosis/Pulmonary Embolism Present on Admission: No
[2020-07-18] MEDS: CEFTRIAXONE 1 GM/50 ML FROZ.PIGGY IV (16:35)
--- NOTE | 2020-07-18 19:14 | DI.RAD.S_ITS ---
PROCEDURE: XR CHEST 1V INDICATIONS: Chest tube, new L back pain TECHNIQUE: One view of the chest was acquired. COMPARISON: [facility], CR, XR CHEST 1V, 07/17/2020, 7:52. [facility], CR, XR CHEST 1V, 07/17/2020, 9:01. [facility], CR, XR CHEST 1V, 07/18/2020, 8:25. FINDINGS: Surgical changes and devices: In the interval since the prior study there has been replacement of the patient's left apical chest tube, now in her ring the chest at the 5th-6th intercostal space. Lungs and pleura: Interval significant re-expansion of the left lung. Previously seen large pneumothorax is now small. Right pleural effusion is similar. Right basilar airspace disease also similar. Mediastinum: Slight mediastinal shift to the right eye has improved but not entirely resolved. IMPRESSION: Interval replacement of left apical thoracostomy tube with significant re-expansion of the left lung. Dictated by: Luis Petit M.D. on 07/18/2020 at 19:49 Approved by: Luis Petit M.D. on 07/18/2020 at 19:52
[2020-07-19] VITALS (10 sets, daily range): BP systolic 113–122; BP diastolic 77–93; PULSE 76–99; RESP 16–26; TEMP 36.3–36.8; O2SAT 94–98
[2020-07-19 04:59] LABS: Hematocrit 29.6 % (41-53); Hemoglobin 9.3 g/dL (13.5-17.5); Mean Corpuscular HGB Conc 31.4 % (30-36); Mean Corpuscular Hemoglobin 26.2 PG (26-34); Mean Corpuscular Volume 83.5 fL (80-100); Platelet Count 310 X10^3/uL (150-400); Red Blood Cell Count 3.54 X10^6/uL (4.5-5.9); Red Cell Distribution Width 20.2 % (11.6-14.8); White Blood Cell Count 9.7 X10^3/uL (4.5-11.0)
[2020-07-19 05:03] LABS: Blood Urea Nitrogen 18 mg/dL (9-20); Calcium 9.6 mg/dL (8.4-10.2); Carbon Dioxide 25 mmol/L (22-32); Chloride 108 mmol/L (98-107); Estimated Glomerular Filt Rate > 60.0 mL/min (>60); Glucose 97 mg/dL (80-110); HEMOLYSIS 21 (0-50); Potassium 3.9 mmol/L (3.4-5.1); Sodium 137 mmol/L (137-145)
[2020-07-19] MEDS: IBUPROFEN 600 MG TABLET PO ×3 (05:03→22:23)
[2020-07-19] MEDS: predniSONE 20 MG TABLET 40 MG PO (08:06)
[2020-07-19] MEDS: ACETAMINOPHEN 325 MG TABLET 650 MG PO (08:06)
[2020-07-19] MEDS: ALBUTEROL/IPRATROPIUM 3 ML AMPUL INH ×3 (08:12→18:00)
--- NOTE | 2020-07-19 08:25 | DI.RAD.S_ITS ---
PROCEDURE: XR CHEST 1V INDICATIONS: F/u. Chest tube has been placed to H2O seal and off suction TECHNIQUE: One view of the chest was acquired. COMPARISON: [facility], CR, XR CHEST 1V, 07/18/2020, 8:25. [facility], CR, XR CHEST 1V, 07/17/2020, 9:01. [facility], CR, XR CHEST 1V, 07/17/2020, 7:52. [facility], CR, XR CHEST 1V, 07/18/2020, 19:26. FINDINGS: Surgical changes and devices: There is a left-sided chest tube. Lungs and pleura: On this semiupright study, there is a small residual left-sided pneumothorax seen. There is a small right-sided pleural effusion seen, with partial loculation. Mild consolidation can be seen at the right lung base. Mediastinum: Mediastinal contours appear normal. Heart size is normal. Bones and chest wall: No suspicious bony lesions. Overlying soft tissues appear unremarkable. IMPRESSION: Small residual left-sided pneumothorax. Right-sided pleural effusion noted. There is mild consolidation seen at the right lung base. Differential diagnosis includes atelectasis and infiltrate. Dictated by: Delvis Alba M.D. on 07/19/2020 at 7:05 Approved by: Delvis Alba M.D. on 07/19/2020 at 7:07
[2020-07-19] MEDS: LIDOCAINE PATCH 1 EACH ADH..PATCH TOP (10:52)
[2020-07-19] MEDS: AZITHROMYCIN 250 MG TABLET 500 MG PO (12:23)
--- NOTE | 2020-07-19 14:24 | PM.PN.1 ---
Subjective Subjective Date Patient Seen: 07/19/20 Time Patient Seen: 14:24 Interval history: Patient having a lot of back pain. He finds sitting in a chair makes it worse and walking also seems to make it worse. He can not get the bed hard enough which he thinks would help it. It has been very frustrating for him. He is breathing fairly comfortably. Exam Vital Signs (past 8 hours): - 07/19/20 08:15 07/19/20 09:24 07/19/20 12:00 Temperature 97.4 F L 97.7 F Pulse Rate 97 H 78 92 H Respiratory Rate 16 22 Blood Pressure 122/77 119/93 H Pulse Oximetry 97 98 98 07/19/20 12:46 Temperature Pulse Rate Respiratory Rate 16 Blood Pressure Pulse Oximetry 97 Oxygen Delivery Method Nasal Cannula Oxygen Flow Rate 2 Narrative Exam Narrative: Good breath sounds in the lateral and posterior areas. Heart regular rate rhythm without murmur gallop. Chest tube intact. No persistent bubbling. There had been fluctuation however in the tube. I had taken it off suction. I briefly put it back on suction and the patient had 1 bubble and then this ceased in the fluctuations ceased. Reviewed the x-ray. There does not seem to be any change from last night to this morning. Objective Labs Result Diagrams: 07/19/20 04:40 07/19/20 04:40 Labs: Laboratory Results - last 24 hr 07/19/20 07/19/20 04:40 04:40 WBC 9.7 RBC 3.54 L Hgb 9.3 L Hct 29.6 L MCV 83.5 MCH 26.2 MCHC 31.4 RDW 20.2 H Plt Count 310 Sodium 137 Potassium 3.9 Chloride 108 H Carbon Dioxide 25 BUN 18 Creatinine 0.50 L Estimated GFR > 60.0 BUN/Creatinine Ratio 36.0 H Glucose 97 Calcium 9.6 PFSH Medical History COPD (chronic obstructive pulmonary disease) COPD exacerbation Hearing loss Hernia Recurrent sinusitis Restless leg syndrome Tinnitus Ventral incisional hernia without gangrene Surgical History Anesthesia H/O resection of large bowel History of colostomy reversal History of colostomy reversal History of resection of large bowel Family History Father History of heart disease Mother Cancer Sister Cancer Social History household members: none Smoking Status: Former smoker alcohol intake: never Assessment & Plan Assessment & Plan narrative: Patient with spontaneous pneumothorax. There does not seem to be an air leak as best I can tell. I would like to clamp his tube overnight and see if there is any increase in this pneumothorax. If there is not hit tube probably can be removed. If there is an increased and he should be back on at least water seal if not suction. Quality VTE Deep Vein Thrombosis/Pulmonary Embolism Present on Admission: No
--- NOTE | 2020-07-19 14:54 | PC.NURSE ---
Day Shift Note Pt calling out and groaning at start of shift, when assessed pt reported unbearable back pain due to bed. Per NOC shift, alternate beds had been trialled but pt reports these remained excruciating. Reported needing bed more firm so slider board was attempted to firm bed surface, pt requested this to be removed shortly after. Tylenol administered per emar and lidocaine patch applied to lower back per MD order. Pt declined further interventions to reposition in bed. Chest tube clamped by Dr. Joseph. Dressing D/I. No IV access, reported to Dr. Dong and ok to leave out. Tele d/c'd at this time. ABX changed to PO by . Call light within reach, encouraged to use to make needs known.
--- NOTE | 2020-07-19 16:59 | P.PN_ITS ---
Subjective Subjective Interval history: Today he is stating he has worse back pain because the bed is too soft. He is very worried he will worsen his respiratory status because of this. He has no shortness of breath currently. Exam Vital Signs (past 8 hours): - 07/19/20 09:24 07/19/20 12:00 07/19/20 12:46 Temperature 97.4 F L 97.7 F Pulse Rate 78 92 H Respiratory Rate 21 22 16 Blood Pressure 122/77 119/93 H Pulse Oximetry 98 98 97 07/19/20 15:54 Temperature 98.3 F Pulse Rate 87 Respiratory Rate 19 Blood Pressure 116/78 Pulse Oximetry 94 Oxygen Delivery Method Nasal Cannula Oxygen Flow Rate 0 Narrative Exam Narrative: General: Chronically ill-appearing man in no acute distress HEENT: PERRL, moist mucous membranes Neck: Trachea midline, neck supple Cardiovascular: Regular rate and rhythm with no murmurs Chest: Has left-sided chest tube bandaged then clean dry and intact Pulmonary: clear bilaterally, decreased breath sounds anteriorly Abdomen: Ventral incisional hernia, right-sided tenderness, no rebounding or guarding, normal bowel sounds Extremities: Moving all extremities grossly to with no noted abnormalities Neuro: Cranial nerves 2-12 intact Psych: frustrated with inability to sleep comfortably Objective Labs Result Diagrams: 07/19/20 04:40 07/19/20 04:40 Labs: Laboratory Results - last 24 hr 07/19/20 07/19/20 04:40 04:40 WBC 9.7 RBC 3.54 L Hgb 9.3 L Hct 29.6 L MCV 83.5 MCH 26.2 MCHC 31.4 RDW 20.2 H Plt Count 310 Sodium 137 Potassium 3.9 Chloride 108 H Carbon Dioxide 25 BUN 18 Creatinine 0.50 L Estimated GFR > 60.0 BUN/Creatinine Ratio 36.0 H Glucose 97 Calcium 9.6 PFSH Medical History COPD (chronic obstructive pulmonary disease) COPD exacerbation Hearing loss Hernia Recurrent sinusitis Restless leg syndrome Tinnitus Ventral incisional hernia without gangrene Surgical History Anesthesia H/O resection of large bowel History of colostomy reversal History of colostomy reversal History of resection of large bowel Family History Father History of heart disease Mother Cancer Sister Cancer Social History household members: none Smoking Status: Former smoker alcohol intake: never Assessment & Plan Assessment & Plan narrative: Mr. Pollard is a 64-year-old male with past medical history of COPD on home oxygen. metatsatic lung ca who presents with acute shortness of breath found to be in acute worsening respiratory failure secondary to pneumothorax from likely bleb rupture. 1. Pneumothorax with acute on chronic respiratory failure -desat in 80s and was very tachypneic initially when he presented to the emergency room -xray confirmed large left pneumothorax, likely from spontaneous bleb rupture -chest tube in place with good seal, suction now off, clamped on 07/19 -surgery consulted and plan for remove chest tube in 07/20 -repeat chest x-ray 07/20 -will need final dispo for outpatient follow up, but surgery thinks will not need pleurodesis, and is a risky surgical candidate given copd 2 acute COPD exacerbation, improving -has had progressively worsening shortness of breath with an inability to cough secondary to his abdominal pain on admission -Started him on DuoNebs, prednisone, ceftriaxone and azithromycin given questionable infiltrate on chest x-ray -follow up xray showed no infiltrate, suspiscion for pna is low, so dc ceftriaxone -continue on duonebs while here in hospital and complete prednisone and az ithromycin course for copd exacerbation 3.Back pain from L4 compression fracture, acute -has chronic back pain -does not want to take opiates, due to issues with constipation -attempting non-opiate rx with adding lido patch 07/19 4. Incisional ventral hernia, chronic -has chronic constipation -currently having only mild pain which is his baseline -Will order dulcolax and senna and possibly will need MiraLax to help -patient declines opiates due to sensitivity to constipation previously 5. Anemia -only mild on admission anemia on admission at 11.5 -dropped to 9.5 on 07/18, but all cell lines down on 07/18, likely secondary to dilutional -repeat on 07/19 stable at 9.3, no evidence of bleeding, likely near baseline -can continue to monitor as an outpatient 6. Elevated lactate -Possibly in the setting of acute stress response and instability with the pneumothorax, possibly elevated due to malignancy -patient nowhemodynamically stable -improved AM 4/10, patient stable, no need to trend further 7. Mildly elevated calcium, acute, resolved -7 with a calcium of 10.8 on admissiion improved to 9.7 and currently asymptomatic -Will encourage good PO intake -no need for IVF at this time 8. Metastatic lung cancer, chronic -being followed by PCP Dr. Fong -initially diagnosed in 2019, but patient stopped going to [employer] -not being treated currently, will need further outpatient follow up to discuss goal of care DVT ppx: lovenox Diet: Regular IVF: none Code status: DNR, confirmed with daughter proxy at bedside Quality VTE Deep Vein Thrombosis/Pulmonary Embolism Present on Admission: No
[2020-07-20] VITALS (52 sets, daily range): BP systolic 111–123; BP diastolic 75–81; PULSE 37–94; RESP 16–20; TEMP 36.1–36.6; O2SAT 58–98
[2020-07-20 04:58] LABS: Hematocrit 29.1 % (41-53); Hemoglobin 9.2 g/dL (13.5-17.5); Mean Corpuscular HGB Conc 31.6 % (30-36); Mean Corpuscular Hemoglobin 26.3 PG (26-34); Mean Corpuscular Volume 83.4 fL (80-100); Platelet Count 343 X10^3/uL (150-400); Red Blood Cell Count 3.49 X10^6/uL (4.5-5.9); Red Cell Distribution Width 19.5 % (11.6-14.8); White Blood Cell Count 8.3 X10^3/uL (4.5-11.0)
[2020-07-20 05:06] LABS: BUN Creatinine Ratio 37.5 (6-22); Blood Urea Nitrogen 21 mg/dL (9-20); Calcium 9.3 mg/dL (8.4-10.2); Carbon Dioxide 28 mmol/L (22-32); Chloride 108 mmol/L (98-107); Estimated Glomerular Filt Rate > 60.0 mL/min (>60); Glucose 93 mg/dL (80-110); HEMOLYSIS < 15 (0-50); Potassium 3.8 mmol/L (3.4-5.1); Sodium 139 mmol/L (137-145)
[2020-07-20] MEDS: IBUPROFEN 600 MG TABLET PO ×2 (05:27→12:37)
[2020-07-20] MEDS: ALBUTEROL/IPRATROPIUM 3 ML AMPUL INH ×2 (08:19→12:15)
[2020-07-20] MEDS: LIDOCAINE PATCH 1 EACH ADH..PATCH TOP (08:22)
--- NOTE | 2020-07-20 09:08 | DI.RAD.S_ITS ---
PROCEDURE: XR CHEST 1V INDICATIONS: Chest tube clamped, reassess pneumothorax TECHNIQUE: One view of the chest was acquired. COMPARISON: [facility], CR, XR CHEST 1V, 07/18/2020, 19:26. [facility], CR, XR CHEST 1V, 07/19/2020, 7:50. FINDINGS: Surgical changes and devices: Left chest tube is grossly unchanged.. Lungs and pleura: There is marked interval increase in diffuse chest wall soft tissue gas extending up the left base of neck since the prior study dated yesterday. Suspect residual left pneumothorax although the exact pleural line is not well seen due to extensive soft tissue gas. Possible subpleural left pleural fluid or pleural thickening. No definite new focal consolidation. Right basilar opacities mildly improved. Mediastinum: Mediastinal contours appear normal. Heart size is normal. Bones and chest wall: No suspicious bony lesions. Overlying soft tissues appear unremarkable. IMPRESSION: Interval development of massive bilateral chest wall and left base of neck soft tissue emphysema, with grossly unchanged placement of left chest tube. Findings were personally telephoned and discussed with Dr. Britton at 1040 hours 07/20/20 Dictated by: Shawn Tim M.D. on 07/20/2020 at 10:36 Approved by: Shawn Tim M.D. on 07/20/2020 at 10:42
--- NOTE | 2020-07-20 11:01 | P.PN_ITS ---
Subjective Subjective Date Patient Seen: 07/20/20 Time Patient Seen: 11:01 Interval history: over 50mins spent with patient in discussion of his complex medical condition in the face of spontaneous PTX that is not responding to conservative management. And severe constipation with known colonic dismotility. loss of domain in abdominal wall. Patient had chest tube clamped with initial CXR showing small PTX. Remained clamped overnight with CXR today showing increased SUBCUTANEOUS air. And persistent PTX. Chest tube was unclamped and placed to suction. he was clinically stable at the time. complaining of constipation. CT scan and films reviewed showing the bilateral giant blebs. Physical exam of the abdomen shows multiple hernias and loss of domain. The bowel can be felt as individual loops thur the wall. generalized tenderness and constipation. he also suffers severe chronic pain and depression. does not want antidepressant due to the possible contribution in the suicide of his son. Impression: his pulmonary needs exceeds the capabilities of this facility. He is failing conservative management. I have spoken with Dr. Jaren Cabrera regarding transfer to [facility] for re evaluation and possible surgery. Will repeat CT scan of chest and abdomen to evaluate the abdominal pain. Patient is in agreement. Exam Vital Signs (past 8 hours): - 07/20/20 04:29 07/20/20 08:00 07/20/20 08:19 Temperature 97.6 F 97.9 F Pulse Rate 74 72 Respiratory Rate 18 17 Blood Pressure 111/75 123/81 Pulse Oximetry 98 94 94 Oxygen Delivery Method Nasal Cannula Oxygen Flow Rate 2 Const General: cooperative [facility] Head: normal to inspection, normocephalic and atraumatic Eyes General: appearance normal, both eyes and all related structures Neck Neck: trachea midline (crepitis left greater than right. no stridor. ) Chest Chest: crepitus Other: decreased bilateral breath sounds. no wheezes at base Resp Effort & Inspection: normal respiratory effort and able to speak in complete sentences Cardio Rate: regular rate Rhythm: regular rhythm GI Inspection: visible herniation Palpation: firm Other: constipation Skin General: dry skin and ecchymosis Neuro General: patient alert, patient awake and patient oriented x3 Cognition: normal cognition Extrem General: normal to inspection Psych Appearance: grossly normal Attitude: cooperative Judgment: judgment good Objective Labs Result Diagrams: 07/20/20 04:30 07/20/20 04:30 Labs: Laboratory Results - last 24 hr 07/20/20 07/20/20 04:30 04:30 WBC 8.3 RBC 3.49 L Hgb 9.2 L Hct 29.1 L MCV 83.4 MCH 26.3 MCHC 31.6 RDW 19.5 H Plt Count 343 Sodium 139 Potassium 3.8 Chloride 108 H Carbon Dioxide 28 BUN 21 H Creatinine 0.56 L Estimated GFR > 60.0 BUN/Creatinine Ratio 37.5 H Glucose 93 Calcium 9.3 PFSH Medical History COPD (chronic obstructive pulmonary disease) COPD exacerbation Hearing loss Hernia Recurrent sinusitis Restless leg syndrome Tinnitus Ventral incisional hernia without gangrene Surgical History Anesthesia H/O resection of large bowel History of colostomy reversal History of colostomy reversal History of resection of large bowel Family History Father History of heart disease Mother Cancer Sister Cancer Social History household members: none Smoking Status: Former smoker alcohol intake: never Quality VTE Deep Vein Thrombosis/Pulmonary Embolism Present on Admission: No
--- NOTE | 2020-07-20 11:34 | P.DS_ITS ---
History of Present Illness History of Present Illness Date Patient Seen: 07/20/20 Time Patient Seen: 11:35 Chief complaint: SOB since last evening, Asthma, COPD, Wheezing Narrative: Per Dr. Dong, Mr. Pollard is a 64M with PMH of COPD on 2L O2 at home, ventral incisional hernia, history of resection of large bowel now s/p colostomy reversal, L4 compression fracture who comes into the hospital with sudden onset severe shortness of nathan ath. He usually is quite short of breat at baseline, and has not been using his albuterol nebulizer recently due to shortness of breath limiting his ability to use his machine. He is also functionally limited by his abdominal discomfort as he has an incisional hernia after previous abdominal surgeries. He also has back pain with his L4 compression fracture. He does not take opioids because he deve lops significant constipation with even small doses. He is very discouraged with his quality of life. Today he had sudden onset shortness of breath and came to the emergency room. He had no chest pain, cough, fevers, or chills. In the ER, he was noted to be hypoxemic in the 80s with tachypnea. He was mildly tachycardic. Labs showed WBC 16.7 with a left shift, hemoglobin 11.5, platelets 558. Lactate 2.3 then 3.0. Calcium 10.8. COVID negative. Chest xray showed a large left pneumothorax from likely ruptured bullae with mediastinal shift. He had chest placed in ER with good improvement in his respiratory status. He was given a dose of methylprednisone. He was then started on ceftriaxone and azithromycin. And he was started on prednisone and albuterol. Discharge Providers Provider Date of admission: 07/17/20 10:45 Discharge Date: 07/20/20 Primary care physician: Srini Fong MD Consults: 07/17/20 10:04 Consult to General Surgery Stat Comment: Consulting Provider: Tramaine Joseph Reason for consultation: Chest tube management Has provider been notified: Yes 07/17/20 11:52 Consult to Dietitian, Adult Routine Comment: Pt has no teeth and hernia with intestinal displac Reason For Exam: Severe malnutrition, weight loss of 75# over 6 mo Discharge provider: Eder Britton DO Summary Hospital Course Discharge Diagnosis: Please see hospital course by problem list noted below Hospital Course: Mr. Pollard is a 64-year-old male with past medical history of COPD on home oxygen. metatsatic lung ca who presents with acute shortness of breath found to be in acute worsening respiratory failure secondary to pneumothorax from likely bleb rupture. He unfortunately had recurrence of pneumothorax after chest tube was clamped, surgery recommended transfer to [facility] for thoracic surgery evaluation for possible VATS/pleurodesis. 1. Pneumothorax with acute on chronic respiratory failure -desat in 80s and was very tachypneic initially when he presented to the emergency room -xray confirmed large left pneumothorax, likely from spontaneous bleb rupture. He continued to improve clinically with chest tube placement and was doing well. -chest tube in place with good seal, was clamped on 07/19 with recurrence noted on CXR 07/20 AM, though he had no overt shortness of breath. Patient was placed back on continuous suction. -Dr. Damian of general surgery here discussed with Dr. Cabrera at [facility], recommended for transfer for thoracic surgery consultation. Accepting hospitalist Dr. Barker 2 acute COPD exacerbation, improving -has had progressively worsening shortness of breath with an inability to cough secondary to his abdominal pain on admission -Started him on DuoNebs, prednisone, ceftriaxone and azithromycin given questionable infiltrate on chest x-ray on admission -follow up xray showed no infiltrate, suspiscion for pna is low, so discontinued antibiotics. -continue on duonebs while here in hospital and complete prednisone and azithromycin course for copd exacerbation (07/20 is day 4/5 of therapy). 3.Back pain from L4 compression fracture, acute -has chronic back pain -does not want to take opiates, due to issues with constipation -attempting non-opiate rx with adding lido patch 07/19 4. Incisional ventral hernia, chronic -has chronic constipation -currently having only mild pain which is his baseline -Will order dulcolax and senna and possibly will need MiraLax to help -patient declines opiates due to sensitivity to constipation previously 5. Anemia, chronic -only mild on admission anemia on admission at 11.5 -dropped to 9.5 on 07/18, but all cell lines down on 07/18, likely secondary to dilutional -repeat on 07/19 stable at 9.3, no evidence of bleeding, likely near baseline 6. Elevated lactate, resolved -Possibly in the setting of acute stress response and instability with the pneumothorax, possibly elevated due to malignancy 7. Mildly elevated calcium, acute, resolved -calcium of 10.8 on admission improved to 9.7 and currently asymptomatic 8. Metastatic lung cancer with likely mets to adrenal gland and bone, chronic -being followed by PCP Dr. 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 -prior CT with R sided chest mass with possible invasion to the chest wall. Also noted are adrenal mass, possible bone mets given compression fracture, and a mediastinal mass. No confirmative diagnosis has been made as of this time. 9. Severe acute protein calorie malnutrition. - due to difficulty eating and possible metastatic process. Approx. 14% unintentional weight loss in <3 mo (severe), BMI 20.9 (severe for age), pts POs metting <50% EERx2w. - appreciate dietary consultation. DVT ppx: lovenox Diet: Regular IVF: none Code status: DNR, confirmed with daughter proxy at bedside Status at Discharge Cognitive/behavioral status at discharge: oriented Time Spent with Patient Time spent: Greater than 30 minutes Exam Vital Signs (past 8 hours): - 07/20/20 04:29 07/20/20 08:00 07/20/20 08:19 Temperature 97.6 F 97.9 F Pulse Rate 74 72 Respiratory Rate 18 17 Blood Pressure 111/75 123/81 Pulse Oximetry 98 94 94 Oxygen Delivery Method Room Air Oxygen Flow Rate 2 Narrative Exam Narrative: General: Chronically ill-appearing man in no acute distress HEENT: PERRL, moist mucous membranes Neck: Trachea midline, neck supple Cardiovascular: Regular rate and rhythm with no murmurs Chest: Has left-sided chest tube bandaged then clean dry and intact Pulmonary: clear bilaterally, decreased breath sounds anteriorly Abdomen: Ventral incisional hernia, right-sided tenderness, no rebounding or gu arding, normal bowel sounds Extremities: Moving all extremities grossly to with no noted abnormalities Neuro: Cranial nerves 2-12 intact Psych: frustrated with inability to sleep comfortably Objective Labs Result Diagrams: 07/20/20 04:30 07/20/20 04:30 Labs: Laboratory Results - last 24 hr 07/20/20 07/20/20 04:30 04:30 WBC 8.3 RBC 3.49 L Hgb 9.2 L Hct 29.1 L MCV 83.4 MCH 26.3 MCHC 31.6 RDW 19.5 H Plt Count 343 Sodium 139 Potassium 3.8 Chloride 108 H Carbon Dioxide 28 BUN 21 H Creatinine 0.56 L Estimated GFR > 60.0 BUN/Creatinine Ratio 37.5 H Glucose 93 Calcium 9.3 PFSH Medical History COPD (chronic obstructive pulmonary disease) COPD exacerbation Hearing loss Hernia Recurrent sinusitis Restless leg syndrome Tinnitus Ventral incisional hernia without gangrene Surgical History Anesthesia H/O resection of large bowel History of colostomy reversal History of colostomy reversal History of resection of large bowel Family History Father History of heart disease Mother Cancer Sister Cancer Social History household members: none Smoking Status: Former smoker alcohol intake: never Discharge Plan Discharge Plan Disposition: [facility] Discharge orders & Medications Follow up/Referrals: Srini Fong MD [Primary Care Provider] - Discharge Data Primary Care Provider: Srini Fong Quality VTE Deep Vein Thrombosis/Pulmonary Embolism Present on Admission: No
[2020-07-20] MEDS: predniSONE 20 MG TABLET 40 MG PO (12:36)
--- NOTE | 2020-07-20 12:43 | DI.CT.S_ITS ---
PROCEDURE: CT CHEST ABD PEL W CON INDICATIONS: abd pain, left PTX TECHNIQUE: After the administration of oral and intravenous contrast, 5 mm thick sections acquired from the lung apices to the symphysis. 5 mm coronal and sagittal reformats were performed, with additional 7 mm coronal MIP reformats through the lungs. For radiation dose reduction, the following was used: automated exposure control, adjustment of mA and/or kV according to patient size. COMPARISON: [facility], CT, CT ANGIO CHEST PE PROTOCOL, 11/02/2017, 9:55. [facility], CT, CT ABDOMEN PELVIS WO CON, 10/13/2017, 11:17. [facility], CT, CT ANGIO CHEST PE PROTOCOL, 05/13/2019, 11:19. [facility], CR, XR CHEST 1V, 07/17/2020, 7:52. [facility], CT, CT CHEST W CON, 06/25/2020, 16:57. [facility], CT, CT ABDOMEN PELVIS WO CON, 04/28/2020, 15:44. [facility], CT, CT ANGIO CHEST PE PROTOCOL, 08/03/2019, 16:32. [facility], CR, XR CHEST 1V, 07/20/2020, 9:10. FINDINGS: Image quality: Excellent. CHEST: Lungs and pleura: A chest tube is seen in the left hemithorax. No pneumothorax. There is volume loss in the right hemithorax with mild mediastinal shift toward the right. Severe bolous emphysema with large bullae in the both lower lobes, left greater than right. There is chronic right lower lobe infiltrate and consolidation consistent with pneumonia. There are small pleural effusions. There is right pleural thickening and nodularity. Loculated pleural effusion is seen in the right major fissure. Central and peripheral airways appear patent and normal in caliber. Mediastinum: There is pneumomediastinum. Heart size is normal. No pericardial effusion. No mediastinal or hilar adenopathy by size criteria. Thoracic aorta and central pulmonary arteries are normal in size. Esophagus is normal in caliber. Large paraesophageal hiatal hernia with intrathoracic stomach. The gastroesophageal junction appears thickened. Chest wall: There is prominent subcutaneous emphysema bilaterally. No axillary or supraclavicular adenopathy by size criteria. Thyroid gland is normal . ABDOMEN: Solid organs: Liver is normal in size and enhancement. There is a 1.9 cm hepatic cyst in central liver. Gallbladder is normal and contracted . Biliary system is non dilated. Pancreas enhances normally. Spleen is normal in size. A 9 mm indeterminate hypodensity in spleen is noted, most likely a cyst or hemangioma. Bilateral adrenal nodules or nodular thickening. Kidneys demonstrate normal size and enhancement, without hydronephrosis. Mild perinephric stranding and small perinephric fluid bilaterally. Peritoneum and bowel: Bowel loops demonstrate normal wall thickness and caliber. There is a large amount of stool in colon. Surgical anastomosis is noted at the rectosigmoid junction. No free fluid or air. Nodes and vessels: No retroperitoneal or mesenteric adenopathy by size criteria. Aorta and inferior vena cava are normal in size. Miscellaneous: Large ventral hernia in the left lower anterior abdomen at the level of the iliac crest containing small bowel loops. PELVIS: Genitourinary: Bladder wall thickness is normal. Miscellaneous: No inguinal hernias or adenopathy. Bones: No suspicious bony lesions. Severe compression fracture of L4, likely chronic. Sclerotic appearance of L4 vertebral body suspicious for metastatic disease. Sclerotic lesions in L2 and bony pelvis bilaterally bilaterally concerning for metastatic disease. IMPRESSION: 1. There is a chest tube in the left hemithorax. No residual pneumothorax. 2. Pneumomediastinum. 3. Marked subcutaneous emphysema. 4. Severe bullous emphysema of the lungs bilaterally with huge emphysematous bullae occupying both lower lobes, left greater than right. 5. Right lower lobe infiltrate and consolidation consistent with pneumonia. A neoplastic process, such as adenocarcinoma in situ, could have a similar appearance. 6. Bilateral small pleural effusions. The right pleural effusion is loculated. 7. Pleural thickening and nodularity in the right lower hemithorax. The CT appearance could be secondary to an infectious or inflammatory etiology but neoplasm cannot be excluded. 8. Large hiatal hernia. 9. Large ventral hernia. 10. Bilateral adrenal nodules or nodular thickening. Further evaluation with adrenal protocol MRI is suggested. 11. Severe compression fracture of L4. L4 has sclerotic appearance suspicious for pathological fracture. Sclerotic lesions are also seen in L2 vertebral body and pelvis bilaterally, concerning for metastasis. Dictated by: Pastor Andrade M.D. on 07/20/2020 at 13:12 Approved by: Pastor Andrade M.D. on 07/20/2020 at 13:49
--- NOTE | 2020-07-20 13:20 | PC.NURSE ---
Addendum entered by Janine Vieira R.N. 07/20/20 15:20: pt prepared for transportation- report given to [facility]- room 3023 Original Note: RESUMED SUCTION TO LEFT CHEST TUBE PER MD ORDERS - CHEST TUBE PREVIOUSLY HAD BEEN CLAMPED- AUDIBLE AND PALPABLE CREPITUS TO LEFT ANTERIOR/LATERAL CHEST - PT WISHES FOR NO OPIATES BUT IS AGREEABLE TO IBUPROFEN - DRANK CONTRAST FOR CT SCAN AND TOLERATED THIS WELL- POTENTIAL TRANSFER TO ANOTHER FACILITY WITH THORACIC SURGERY- LIDOCAINE PATCH TO LOWER MID BACK FOR CHRONIC PAIN
== END 2020-07-20 15:30 | disposition short-term general hospital (02) | DRG 199 ==
LOC: ED 09:59 → ICU 11:48 → AC 07-20 10:56 → ICU 07-20 10:56
PROVIDERS: Nurse Practitioner Adult Health; Admitting Provider Internal Medicine; Emergency Provider Emergency Medicine; Family Provider Family Medicine; PCP Student in an Organized Health Care Education/Training Program; Referring Provider Emergency Medicine; Visit Provider Internal Medicine
DX: J93.83 Other pneumothorax (principal); J96.20 Acute and chronic respiratory failure, unspecified whether with hypoxia or hypercapnia; E43 Unspecified severe protein-calorie malnutrition; S32.040A Wedge compression fracture of fourth lumbar vertebra, initial encounter for closed fracture; J44.1 Chronic obstructive pulmonary disease with (acute) exacerbation; C34.90 Malignant neoplasm of unspecified part of unspecified bronchus or lung; C79.51 Secondary malignant neoplasm of bone; C79.70 Secondary malignant neoplasm of unspecified adrenal gland; Z99.81 Dependence on supplemental oxygen; K43.2 Incisional hernia without obstruction or gangrene; D64.9 Anemia, unspecified; Z20.822 Contact with and (suspected) exposure to COVID-19; Z87.891 Personal history of nicotine dependence; X58.XXXA Exposure to other specified factors, initial encounter; Z66 Do not resuscitate
CPT/HCPCS: 32551; 36415; 36592; 71045; 71260; 74177; 80048; 80053; 82550; 83605; 83880; 84145; 84484; 85007; 85025; 85027; 85610; 85730; 87635; 93005; 94640; 94760; 94762; 96361; 96374; 96375; 99232; 99233; 99285; 99291; C9803; J1885; J2930; Q9967